=== PATIENT | male | born 1940 | race Caucasian/White ===

== ENCOUNTER 2022-07-20 14:42 | Outpatient (REF) | payer MEDICARE, SELFPAY ==
[2022-07-20 16:28] LABS: MANUAL DIFF FLAG NO
[2022-07-20 16:32] LABS: Basophils Absolute Auto 0.1 X10*3/uL (0.0-0.2); Basophils Percent Auto 1.2 % (0-2); Eosinophils Absolute Auto 0.2 X10*3/uL (0.0-0.4); Eosinophils Percent Auto 3.1 % (0-4); Hemoglobin 10.8 g/dl (14.0-18.0); Imm Gran Abs Auto 0.02 X10*3/uL (0.00-0.03); Imm Gran Pct Auto 0.3 % (0.0-0.4); Lymphocytes Absolute Auto 1.8 X10*3/uL (1.2-4.9); Lymphocytes Percent Auto 23.2 % (20-40); Mean Corpuscular HGB Conc 31.8 g/dl (31.0-36.0); Mean Corpuscular Hemoglobin 27.8 pg (27.0-33.0); Mean Corpuscular Volume 87.6 fL (80.0-98.0); Mean Platelet Volume 8.8 fL (9.4-12.4); Monocytes Absolute Auto 0.9 X10*3/uL (0.1-1.2); Monocytes Percent Auto 11.5 % (2-11); Neutrophils Absolute Auto 4.7 x10*3/uL (2.0-8.3); Neutrophils Percent Auto 60.7 % (45-73); Platelet Count 257 X10*3/uL (160-400); Red Blood Count 3.88 X10*6/uL (4.60-5.80); Red Cell Distribution Width 14.4 % (11.0-16.0); White Blood Count 7.7 X10*3/uL (4.8-10.8)
[2022-07-20 16:54] LABS: Alanine Aminotransferase < 6 U/L (0-40); Albumin Level 2.8 g/dL (3.5-5.0); Alkaline Phosphatase 115 U/L (39-117); Anion Gap 13 (12-20); Aspartate Amino Transferase 15 U/L (5-37); Bilirubin Total 0.5 mg/dL (0.0-1.0); Blood Urea Nitrogen 12 mg/dL (9-16); Calcium 8.6 mg/dL (8.4-10.2); Carbon Dioxide 27 mmol/L (22-29); Chloride 102 mmol/L (96-108); Estimated Glomerular Filt Rate > 60; Glucose Random 148 mg/dL (60-115); Potassium 4.2 mmol/L (3.3-5.1); Sodium 138 mmol/L (135-145); Total Protein 6.5 g/dL (6.5-8.0)
== END 2022-07-20 14:43 | disposition home or self-care (01) ==
LOC: HO.HMGCLDS 14:42
PROVIDERS: PCP Internal Medicine; Visit Provider Internal Medicine
DX: F41.1 Generalized anxiety disorder (principal); G62.9 Polyneuropathy, unspecified; I10 Essential (primary) hypertension; R26.89 Other abnormalities of gait and mobility; E13.9 Other specified diabetes mellitus without complications
CPT/HCPCS: 36415; 80053; 84443; 85025

== ENCOUNTER 2022-08-25 09:39 | Outpatient (REF) | payer MEDICARE, SELFPAY ==
[2022-08-25 11:43] LABS: MANUAL DIFF FLAG NO
[2022-08-25 11:48] LABS: Basophils Absolute Auto 0.1 X10*3/uL (0.0-0.2); Basophils Percent Auto 1.1 % (0-2); Eosinophils Absolute Auto 0.2 X10*3/uL (0.0-0.4); Eosinophils Percent Auto 2.7 % (0-4); Hematocrit 36.3 % (42.0-52.0); Hemoglobin 11.8 g/dl (14.0-18.0); Imm Gran Abs Auto 0.02 X10*3/uL (0.00-0.03); Imm Gran Pct Auto 0.2 % (0.0-0.4); Lymphocytes Absolute Auto 1.9 X10*3/uL (1.2-4.9); Lymphocytes Percent Auto 21.7 % (20-40); Mean Corpuscular HGB Conc 32.5 g/dl (31.0-36.0); Mean Corpuscular Volume 89.2 fL (80.0-98.0); Mean Platelet Volume 8.7 fL (9.4-12.4); Monocytes Absolute Auto 1.1 X10*3/uL (0.1-1.2); Neutrophils Absolute Auto 5.5 x10*3/uL (2.0-8.3); Neutrophils Percent Auto 62.3 % (45-73); Platelet Count 266 X10*3/uL (160-400); Red Blood Count 4.07 X10*6/uL (4.60-5.80); Red Cell Distribution Width 14.3 % (11.0-16.0); White Blood Count 8.9 X10*3/uL (4.8-10.8)
== END 2022-08-25 09:40 | disposition home or self-care (01) ==
LOC: HO.HMGCLDS 09:39
PROVIDERS: PCP Internal Medicine; Visit Provider Internal Medicine
DX: D64.9 Anemia, unspecified (principal)
CPT/HCPCS: 36415; 85025

== ENCOUNTER 2022-11-16 15:25 | Outpatient (REF) | payer MEDICARE, SELFPAY | END 2022-11-16 15:26 | disposition home or self-care (01) | LOC: HO.LNP 15:25 | PROVIDERS: Visit Provider Internal Medicine | DX: Z13.89 Encounter for screening for other disorder (principal) ==

== ENCOUNTER 2023-05-21 09:54 | Outpatient (AMB) | payer MEDICARE, SELFPAY ==
[2023-05-21 09:58] VITALS: BP 110/62; PULSE 59; O2SAT 99
--- NOTE | 2023-05-21 09:58 | MHC.PC.OV ---
Vital Signs 05/21/23 09:58 Height 6 ft BMI Reason not done Patient refused/unable BP 110/62 Blood Pressure Location Lt brachial Position Sitting Pulse 59 Pulse Source Pulse Oximeter Pulse Oximetry (%) 99 Oxygen Delivery Method Room Air Intake Visit Reasons: 4 month Follow up Accompanied by: Spouse Allergies No Known Allergies [No Known Allergies*] Allergy (Verified 05/21/23 09:58) Medication List - Last Reconciled 05/21/23 by Krystin Balbuena MD aspirin (Adult Low Dose Aspirin) 81 mg PO DAILY cholecalciferol (vitamin D3) 25 mcg PO DAILY escitalopram oxalate 20 mg PO DAILY metoprolol succinate ER 100 mg PO DAILY silver sulfadiazine 1% (Silvadene) 1 appl topical DAILY 30 days Tobacco use date assessed: 05/21/23 Fall risk assessment: No Falls in past year Last assessed Fall Risk: 05/21/23 Dental Screening Dental Screen Date: 05/21/23 Did you have a dental visit in the last 12 months?: No Did you have a dental problem in the last 6 months where you did not have access to dental care?: No Was dental information given to patient?: Patient declined HPI 4 month Follow up HPI Details Patient is 82-year-old male who is almost wheelchair bound And very rarely get up from wheelchair, only to go to bathroom. Patient is very unsteady on his feet because of chronic progressive neuropathy. Which has made it very difficult for patient to walk. Hypertension: Patient is on metoprolol 100 mg. Blood pressure is 110/62 His mood is stable anxiety is stable patient is on Lexapro 20 mg he is to continue that. His other medications are aspirin 81 mg and vitamin-D. Patient is here today with his sitting in wheelchair in no acute distress says that it is very difficult for family to take patient to pharmacy for high-dose flu vaccine So they would like to have the regular flu vaccine for patient today which we have given. He will be having labs done today. He wears diapers as well due to chronic urine incontinence He will return in 6 month for follow-up with his who is also a patient here. 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 Brother No problems noted. Brother No problems noted. Sister No problems noted. Son No problems noted. Son No problems noted. Son No problems noted. Son No problems noted. Daughter No problems noted. Daughter No problems noted. Daughter No problems noted. Social History Housing: House Patient Tobacco Use Status: Former Tobacco user e-Cigarette/Vaping Use: Never Used service: Yes Current occupational status: retired Cognitive needs: No Hearing needs: No Vision needs: No Questionnaire PHQ-9 Over the last 2 weeks, how often have you been bothered by any of the following problems? 1. Little interest or pleasure in doing things: nearly every day 2. Feeling down, depressed, or hopeless: not at all 3. Trouble falling or staying asleep, or sleeping too much: several days 4. Feeling tired or having little energy: not at all 5. Poor appetite or overeating: not at all 6. Feeling bad about yourself - or that you are a failure or have let yourself or your family down: not at all 7. Trouble concentrating on things, such as reading the newspaper or watching television: not at all 8. Moving or speaking so slowly that other people could have noticed. Or the opposite - being so fidgety or restless that you have been moving around a lot more than usual: not at all 9. Thoughts that you would be better off or of hurting yourself in some way: not at all Total score: 4 Depression Screening Interpretation: Negative Depression Screening Done: Yes 28596 - PHQ-9 Billing: Yes Source: Developed by Drs. Adan Black, Hannah Powell, Marcell Levine and colleagues, with an educational marta from [employer]. Thrive Questionnaire Date Thrive assessed: 05/21/23 I am a: Patient What is your living situation today?: I have a steady place to live Within the past 12 months, did the food you bought not last and you didn't have the money to get more?: Never true Within the past 12 months, did you worry whether your food would run out before you got money to buy more?: Never true Do you have trouble paying for medicines?: No Do you have trouble getting transportation to medical appointments?: No Do you have trouble paying your heating and electricity bill?: No Do you have trouble taking care of your child, family member or friend?: No Do you have trouble with day-to-day activities such as bathing, preparing meals, shopping, managing finances, etc.?: No Are you currently unemployed and looking for a job?: No Are you interested in more education?: No Please select the resources that you would like help with: None Currently or been in a relationship where the following occur: no concerns reported ELI-7 AMB Questionnaire ELI-7 Date ELI - 7 assessed: 05/21/23 Feeling nervous, anxious, or on edge: 0 = Not at all Not being able to stop or control worryin = Not at all Worrying too much about different things: 0 = Not at all Trouble relaxin = Not at all Being so restless that it is hard to sit still: 0 = Not at all Becoming easily annoyed or irritable: 0 = Not at all Feeling afraid as if something awful might happen: 0 = Not at all Total ELI-7 score (0-4 normal; 5-9 mild; 10-14 moderate; 15-21 severe): 0 Source: Developed by Drs. Adan lBack, Hannah Powell, Marcell Levine and colleagues, with an educational marta from [employer]. ELI-7 Assessment Billing ELI-7 Assessment Tool: ELI-7 Assessment 02378 Review of Systems Const Denies chills and Denies fever(s) ENT Denies epistaxis and Denies nasal discharge Card Denies chest pain Resp Denies chest congestion, Denies cough and Denies hemoptysis GI Denies diarrhea and Denies nausea Skin/Breast Denies rash Neuro Reports no additional complaints Psych Reports no additional complaints Endo Reports no additional complaints Physical exam (Primary Care) Vital Signs: Last Vital Signs Pulse 59 05/21/23 09:58 BP 110/62 05/21/23 09:58 Pulse Ox 99 05/21/23 09:58 Oxygen Delivery Method Room Air 05/21/23 09:58 Tobacco/Smoking Status: Tobacco use Status Tobacco use date assessed 05/21/23 05/21/23 09:59 Patient Tobacco Use Status Former Tobacco user 05/21/23 09:59 e-Cigarette/Vaping Use Never Used 05/21/23 09:59 PHQ-9: PHQ-9 Score PHQ-9: Total score 4 05/21/23 10:25 Depression Screening Interpretation: Negative Thrive Assessment: Date of Thrive Assessment Date Thrive assessed 05/21/23 05/21/23 10:05 Currently or been in a relationship where the following occur: no concerns reported Const General: cooperative, comfortable and no acute distress Orientation/consciousness: patient oriented x3 HENMT Head: Yes normocephalic Eyes General: appearance normal, both eyes and all related structures Neck Neck: Yes supple Resp Effort & Inspection: normal respiratory effort, no cough and no stridor Cardio Rhythm: regular rhythm Heart sounds: S1 normal heart sound present and S2 normal heart sound present Skin General skin exam: turgor normal Neuro General: patient oriented x3 and moves all extremities Extrem Right lower extremity: no edema Left lower extremity: no edema Office Procedures Flu Questionnaire Does the patient have a severe egg allergy?: No Does the patient have severe life threatening allergies?: No Does the patient have a fever or illness today?: No Has the patient ever had Guillain-Kingman Syndrome?: No Has the patient ever had any past reaction to a flu shot?: No Immunizations flu vacc [id number] 6mos up(PF) 60 mcg(15 mcgx4)/0.5 mL IM syringe Performing Provider: Krystin Balbuena MD Performing Location: [facility] [place] [facility] Administered by: Shree Elmore CMA on 05/21/23 10:25 Dose Route Admin Location Dispensed Lot Number Expiration Date NDC [employer] 0.5 mL IM Left Deltoid 0.5 mL [id number] 01/05/24 [id number] [employer] VIS Given Date VIS Provided VIS Publication Date 05/21/23 Single Vaccine 21 Eligibility Eligibility Date Funding Source Not [facility] Eligible 05/21/23 Private Assessment and Plan Assessment & Plan (1) Diabetes 1.5, managed as type 2: Code(s): E13.9 - Other specified diabetes mellitus without complications (2) Hypertension, essential: Code(s): I10 - Essential (primary) hypertension (3) Anxiety, generalized: Code(s): F41.1 - Generalized anxiety disorder (4) Multifactorial gait disorder: Code(s): R26.89 - Other abnormalities of gait and mobility (5) Peripheral neuropathy: Code(s): G62.9 - Polyneuropathy, unspecified Qualifiers: Peripheral neuropathy type: idiopathic progressive neuropathy Qualified Code(s): G60.3 - Idiopathic progressive neuropathy (6) Anemia: Code(s): D64.9 - Anemia, unspecified Qualifiers: Anemia type: unspecified type Qualified Code(s): D64.9 - Anemia, unspecified (7) Risk for falls: Code(s): Z91.81 - History of falling (8) Gait instability: Code(s): R26.81 - Unsteadiness on feet Plan Patient is 82-year-old male who is almost wheelchair bound And very rarely get up from wheelchair, only to go to bathroom. Patient is very unsteady on his feet because of chronic progressive neuropathy. Which has made it very difficult for patient to walk. Hypertension: Patient is on metoprolol 100 mg. Blood pressure is 110/62 His mood is stable anxiety is stable patient is on Lexapro 20 mg he is to continue that. His other medications are aspirin 81 mg and vitamin-D. Patient is here today with his sitting in wheelchair in no acute distress says that it is very difficult for family to take patient to pharmacy for high-dose flu vaccine So they would like to have the regular flu vaccine for patient today which we have given. He will be having labs done today. Diabetes mellitus: Diet controlled He wears diapers as well due to chronic urine incontinence He will return in 6 month for follow-up with his who is also a patient here. Orders: Orders Complete Blood Count Auto Diff Today D64.9 - Anemia, unspecified, E13.9 - Other specified diabetes mellitus without complications, F41.1 - Generalized anxiety disorder, G62.9 - Polyneuropathy, unspecified, I10 - Essential (primary) hypertension, R26.89 - Other abnormalities of gait and mobility Ferritin Today D64.9 - Anemia, unspecified, E13.9 - Other specified diabetes mellitus without complications, F41.1 - Generalized anxiety disorder, G62.9 - Polyneuropathy, unspecified, I10 - Essential (primary) hypertension, R26.89 - Other abnormalities of gait and mobility Hemoglobin A1c Today E13.9 - Other specified diabetes mellitus without complications Comprehensive Anderson. Panel Fast Today D64.9 - Anemia, unspecified, E13.9 - Other specified diabetes mellitus without complications, F41.1 - Generalized anxiety disorder, G62.9 - Polyneuropathy, unspecified, I10 - Essential (primary) hypertension, R26.89 - Other abnormalities of gait and mobility Influenza [id number] Immunization Today Z23 - Encounter for immunization TSH reflex Free T4 Today D64.9 - Anemia, unspecified, E13.9 - Other specified diabetes mellitus without complications, F41.1 - Generalized anxiety disorder, G62.9 - Polyneuropathy, unspecified, I10 - Essential (primary) hypertension, R26.89 - Other abnormalities of gait and mobility Lipid Panel Today D64.9 - Anemia, unspecified, E13.9 - Other specified diabetes mellitus without complications, F41.1 - Generalized anxiety disorder, G62.9 - Polyneuropathy, unspecified, I10 - Essential (primary) hypertension, R26.89 - Other abnormalities of gait and mobility Medications: Refilled metoprolol succinate ER 100 mg PO DAILY 90 tabs 3RF escitalopram oxalate 20 mg PO DAILY 90 tabs 3RF Coding Level of Care Code Est Pt Level 4 (21803) Diagnoses Diabetes 1.5, managed as type 2 E13.9 Hypertension, essential I10 Anxiety, generalized F41.1 Multifactorial gait disorder R26.89 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 type: idiopathic progressive neuropathy Anemia, unspecified type D64.9 Anemia type: unspecified type Risk for falls Z91.81 Gait instability R26.81 Additional Codes ELI-7 Assessment Billing - ELI-7 Assessment Tool: ELI-7 Assessment [id number] ([id number])
== END 2023-05-21 10:28 | disposition home or self-care (01) ==
PROVIDERS: Visit Provider Internal Medicine
DX: E13.9 Other specified diabetes mellitus without complications (principal); I10 Essential (primary) hypertension; F41.1 Generalized anxiety disorder; R26.89 Other abnormalities of gait and mobility; G60.3 Idiopathic progressive neuropathy; D64.9 Anemia, unspecified; Z91.81 History of falling; R26.81 Unsteadiness on feet; Z23 Encounter for immunization
CPT/HCPCS: 90471; 90686; 99214

== ENCOUNTER 2023-05-21 10:32 | Outpatient (REF) | payer MEDICARE, SELFPAY ==
[2023-05-21 13:37] LABS: MANUAL DIFF FLAG NO
[2023-05-21 14:01] LABS: Estimated Average Glucose 94 mg/dL; Hemoglobin A1c % 4.9 % (<6.0)
[2023-05-21 14:08] LABS: Alanine Aminotransferase < 5 U/L (0-40); Albumin Level 2.9 g/dL (3.5-5.0); Alkaline Phosphatase 102 U/L (39-117); Anion Gap 11 (12-20); Aspartate Amino Transferase 22 U/L (5-37); Bilirubin Total 0.6 mg/dL (0.0-1.0); Blood Urea Nitrogen 10 mg/dL (9-16); Calcium 8.8 mg/dL (8.4-10.2); Carbon Dioxide 28 mmol/L (22-29); Chloride 101 mmol/L (96-108); Cholesterol 128 mg/dL (<200); Estimated Glomerular Filt Rate > 60; Glucose Fasting 100 mg/dL (60-99); HDL Cholesterol 44 mg/dL (>40); LDL Cholesterol Calculated 73 mg/dL (<100); Potassium 4.5 mmol/L (3.3-5.1); Sodium 135 mmol/L (135-145); Total Protein 7.2 g/dL (6.5-8.0); Triglycerides 59 mg/dL (<150)
[2023-05-21 14:10] LABS: Basophils Absolute Auto 0.1 X10*3/uL (0.0-0.2); Basophils Percent Auto 1.2 % (0-2); Eosinophils Absolute Auto 0.2 X10*3/uL (0.0-0.4); Eosinophils Percent Auto 1.9 % (0-4); Hematocrit 36.5 % (42.0-52.0); Hemoglobin 12.3 g/dl (14.0-18.0); Imm Gran Abs Auto 0.03 X10*3/uL (0.00-0.03); Imm Gran Pct Auto 0.4 % (0.0-0.4); Lymphocytes Absolute Auto 1.3 X10*3/uL (1.2-4.9); Lymphocytes Percent Auto 15.4 % (20-40); Mean Corpuscular HGB Conc 33.7 g/dl (31.0-36.0); Mean Corpuscular Hemoglobin 30.1 pg (27.0-33.0); Mean Corpuscular Volume 89.2 fL (80.0-98.0); Mean Platelet Volume 8.8 fL (9.4-12.4); Monocytes Absolute Auto 0.9 X10*3/uL (0.1-1.2); Monocytes Percent Auto 9.9 % (2-11); Neutrophils Absolute Auto 6.1 x10*3/uL (2.0-8.3); Neutrophils Percent Auto 71.2 % (45-73); Platelet Count 238 X10*3/uL (160-400); Red Blood Count 4.09 X10*6/uL (4.60-5.80); Red Cell Distribution Width 14.3 % (11.0-16.0); White Blood Count 8.6 X10*3/uL (4.8-10.8)
[2023-05-21 14:26] LABS: Ferritin 10 ng/mL (20-250); TSH reflex Free T4 1.12 uIU/mL (0.32-4.0)
== END 2023-05-21 10:33 | disposition home or self-care (01) ==
LOC: HO.HMGCLDS 10:32
PROVIDERS: PCP Internal Medicine; Visit Provider Internal Medicine
DX: I10 Essential (primary) hypertension (principal); F41.1 Generalized anxiety disorder; R26.89 Other abnormalities of gait and mobility; E13.9 Other specified diabetes mellitus without complications; G62.9 Polyneuropathy, unspecified; D64.9 Anemia, unspecified
CPT/HCPCS: 36415; 80053; 80061; 82728; 83036; 84443; 85025

== ENCOUNTER 2023-11-19 09:52 | Outpatient (AMB) | payer MEDICARE, SELFPAY ==
[2023-11-19 10:03] VITALS: BP 106/58; PULSE 59; O2SAT 97
--- NOTE | 2023-11-19 10:03 | MHC.PC.OV ---
Vital Signs 11/19/23 10:03 Height 6 ft BMI Reason not done Patient refused/unable BP 106/58 L Blood Pressure Location Lt brachial Position Sitting Pulse 59 Pulse Source Pulse Oximeter Pulse Oximetry (%) 97 Oxygen Delivery Method Room Air Intake Visit Reasons: 6 month fu Allergies No Known Allergies [No Known Allergies*] Allergy (Verified 11/19/23 10:04) Medication List - Last Reconciled 11/19/23 by Krystin Balbuena MD aspirin (Adult Low Dose Aspirin) 81 mg PO DAILY cholecalciferol (vitamin D3) 25 mcg PO DAILY escitalopram oxalate 20 mg PO DAILY metoprolol succinate ER 100 mg PO DAILY Tobacco use date assessed: 11/19/23 Fall risk assessment: No Falls in past year Last assessed Fall Risk: 11/19/23 Dental Screening Dental Screen Date: 11/19/23 Did you have a dental visit in the last 12 months?: No Did you have a dental problem in the last 6 months where you did not have access to dental care?: No Was dental information given to patient?: No HPI 6 month fu HPI Details Patient is 83-year-old male who is almost wheelchair bound But still able to use commode holding onto something, patient do wear diapers as well Patient is very unsteady on his feet because of chronic progressive neuropathy. Hypertension: Patient is on metoprolol 50 mg. Blood pressure is 106 systolic, I am reducing it further to 25 mg His mood is stable anxiety is stable patient is on Lexapro 20 mg he is to continue that. His other medications are aspirin 81 mg and vitamin-D. Patient is here today with his sitting in wheelchair in no acute distress He will be having labs done today. 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 Brother No problems noted. Brother No problems noted. Sister No problems noted. Son No problems noted. Son No problems noted. Son No problems noted. Son No problems noted. Daughter No problems noted. Daughter No problems noted. Daughter No problems noted. Social History Housing: House Patient Tobacco Use Status: Former Tobacco user e-Cigarette/Vaping Use: Never Used service: Yes Current occupational status: retired Cognitive needs: No Hearing needs: No Vision needs: No Questionnaire PHQ-9 Over the last 2 weeks, how often have you been bothered by any of the following problems? 1. Little interest or pleasure in doing things: more than half the days 2. Feeling down, depressed, or hopeless: several days 3. Trouble falling or staying asleep, or sleeping too much: nearly every day 4. Feeling tired or having little energy: nearly every day 5. Poor appetite or overeating: not at all 6. Feeling bad about yourself - or that you are a failure or have let yourself or your family down: not at all 7. Trouble concentrating on things, such as reading the newspaper or watching television: not at all 8. Moving or speaking so slowly that other people could have noticed. Or the opposite - being so fidgety or restless that you have been moving around a lot more than usual: not at all 9. Thoughts that you would be better off or of hurting yourself in some way: not at all Total score: 9 Depression Screening Interpretation: Positive Depression Screening Follow-up: Existing condition and In treatment Depression Screening Done: Yes 75440 - PHQ-9 Billing: Yes Source: Developed by Drs. Adan Black, Hannah Powell, Marcell Levine and colleagues, with an educational marta from [employer]. Thrive Questionnaire Date Thrive assessed: 11/19/23 I am a: Patient What is your living situation today?: I have a steady place to live Within the past 12 months, did the food you bought not last and you didn't have the money to get more?: Never true Within the past 12 months, did you worry whether your food would run out before you got money to buy more?: Never true Do you have trouble paying for medicines?: No Do you have trouble getting transportation to medical appointments?: No Do you have trouble paying your heating and electricity bill?: No Do you have trouble taking care of your child, family member or friend?: No Do you have trouble with day-to-day activities such as bathing, preparing meals, shopping, managing finances, etc.?: No Are you currently unemployed and looking for a job?: No Are you interested in more education?: No Please select the resources that you would like help with: None Currently or been in a relationship where the following occur: no concerns reported THRIVE Score: 0 AUDIT C Alcohol Use Questionnaire (AUDIT-C) 1. How often do you have a drink containing alcohol?: Never 2. How many drinks containing alcohol do you have on a typical day when you are drinking?: 1 or 2 3. How often do you have six or more drinks on one occasion?: Never Total Score: 0 ELI-7 AMB Questionnaire ELI-7 Date ELI - 7 assessed: 11/19/23 Feeling nervous, anxious, or on edge: 3 = Nearly every day Not being able to stop or control worryin = More than half the days Worrying too much about different things: 1 = Several days Trouble relaxin = Several days Being so restless that it is hard to sit still: 0 = Not at all Becoming easily annoyed or irritable: 0 = Not at all Feeling afraid as if something awful might happen: 0 = Not at all Total ELI-7 score (0-4 normal; 5-9 mild; 10-14 moderate; 15-21 severe): 7 Source: Developed by Drs. Adan Black, Hannah Powell, Marcell Levine and colleagues, with an educational marta from [employer]. ELI-7 Assessment Billing ELI-7 Assessment Tool: ELI-7 Assessment 05892 Review of Systems Const Denies chills and Denies fever(s) ENT Denies epistaxis and Denies nasal discharge Card Denies chest pain Resp Denies chest congestion, Denies cough and Denies hemoptysis GI Denies diarrhea and Denies nausea Skin/Breast Denies rash Neuro Reports no additional complaints Psych Reports no additional complaints Endo Reports no additional complaints Physical exam (Primary Care) Vital Signs: Last Vital Signs Pulse 59 11/19/23 10:03 BP 106/58 L 11/19/23 10:03 Pulse Ox 97 11/19/23 10:03 Oxygen Delivery Method Room Air 11/19/23 10:03 Tobacco/Smoking Status: Tobacco use Status Tobacco use date assessed 11/19/23 11/19/23 10:08 Patient Tobacco Use Status Former Tobacco user 11/19/23 10:08 e-Cigarette/Vaping Use Never Used 11/19/23 10:08 PHQ-9: PHQ-9 Score PHQ-9: Total score 9 11/19/23 10:36 Depression Screening Interpretation: Positive Depression Screening Follow-up: Existing condition and In treatment Thrive Assessment: Date of Thrive Assessment Date Thrive assessed 11/19/23 11/19/23 10:08 Currently or been in a relationship where the following occur: no concerns reported Const General: cooperative, comfortable and no acute distress Orientation/consciousness: patient oriented x3 HENMT Head: Yes normocephalic Eyes General: appearance normal, both eyes and all related structures Neck Neck: Yes supple Resp Effort & Inspection: normal respiratory effort, no cough and no stridor Cardio Heart sounds: S1 normal heart sound present and S2 normal heart sound present Skin General skin exam: turgor normal Neuro General: patient oriented x3, tone normal and moves all extremities Extrem Other: No edema bilateral ankle Results AMB Hemoglobin A1c AMB Hemoglobin A1c 5.5 % Last Edit by Aguilar Doll MA on 11/19/23 10:22 Results Reviewed Results Reviewed: Laboratory Last Values Hgb A1c (Clinic) 5.5 % (4.0-6.0) 11/19/23 10:21 Assessment and Plan Assessment & Plan (1) Diabetes 1.5, managed as type 2: Code(s): E13.9 - Other specified diabetes mellitus without complications (2) Multifactorial gait disorder: Code(s): R26.89 - Other abnormalities of gait and mobility (3) Anxiety, generalized: Code(s): F41.1 - Generalized anxiety disorder (4) Hypertension, essential: Code(s): I10 - Essential (primary) hypertension (5) Peripheral neuropathy: Code(s): G62.9 - Polyneuropathy, unspecified Qualifiers: Peripheral neuropathy type: idiopathic progressive neuropathy Qualified Code(s): G60.3 - Idiopathic progressive neuropathy (6) Risk for falls: Code(s): Z91.81 - History of falling Plan Patient is 83-year-old male who is almost wheelchair bound But still able to use commode holding onto something, patient do wear diapers as well Patient is very unsteady on his feet because of chronic progressive neuropathy. Hypertension: Patient is on metoprolol 50 mg. Blood pressure is 106 systolic, I am reducing it further to 25 mg His mood is stable anxiety is stable patient is on Lexapro 20 mg he is to continue that. His other medications are aspirin 81 mg and vitamin-D. Patient is here today with his sitting in wheelchair in no acute distress He will be having labs done today. Diabetes mellitus: Diet controlled, hemoglobin A1c is 5.5 today As chronic urine incontinence He will return in 6 month for follow-up with his Orders: Orders Complete Blood Count Auto Diff Today E13.9 - Other specified diabetes mellitus without complications, E66.09 - Other obesity due to excess calories, F41.1 - Generalized anxiety disorder, I10 - Essential (primary) hypertension, R26.89 - Other abnormalities of gait and mobility Comprehensive Met. Panel Today E13.9 - Other specified diabetes mellitus without complications, E66.09 - Other obesity due to excess calories, F41.1 - Generalized anxiety disorder, I10 - Essential (primary) hypertension, R26.89 - Other abnormalities of gait and mobility Medications: Changed From metoprolol succinate ER 100 mg PO DAILY 90 tabs 3RF To metoprolol succinate ER 25 mg PO DAILY 90 tabs 3RF Refilled cholecalciferol (vitamin D3) 25 mcg PO DAILY 90 caps 0RF Coding Level of Care Code Est Pt Level 4 (54920) Diagnoses Diabetes 1.5, 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 R26.89 Anxiety, generalized F41.1 Hypertension, essential I10 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 type: idiopathic progressive neuropathy Risk for falls Z91.81 Additional Codes ELI-7 Assessment Billing - ELI-7 Assessment Tool: ELI-7 Assessment 34526 ([id number])
== END 2023-11-19 11:26 | disposition home or self-care (01) ==
PROVIDERS: PCP Internal Medicine; Visit Provider Internal Medicine
DX: E13.9 Other specified diabetes mellitus without complications (principal); R26.89 Other abnormalities of gait and mobility; F41.1 Generalized anxiety disorder; I10 Essential (primary) hypertension; G60.3 Idiopathic progressive neuropathy; Z91.81 History of falling
CPT/HCPCS: 83036; 99214

== ENCOUNTER 2023-11-19 10:29 | Outpatient (REF) | payer MEDICARE, SELFPAY ==
[2023-11-19 13:16] LABS: MANUAL DIFF FLAG NO
[2023-11-19 13:24] LABS: Basophils Absolute Auto 0.1 X10*3/uL (0.0-0.2); Basophils Percent Auto 1.2 % (0-2); Eosinophils Absolute Auto 0.1 X10*3/uL (0.0-0.4); Eosinophils Percent Auto 2.3 % (0-4); Hematocrit 26.7 % (42.0-52.0); Hemoglobin 8.7 g/dl (14.0-18.0); Imm Gran Abs Auto 0.03 X10*3/uL (0.00-0.03); Imm Gran Pct Auto 0.5 % (0.0-0.4); Mean Corpuscular HGB Conc 32.6 g/dl (31.0-36.0); Mean Corpuscular Hemoglobin 29.1 pg (27.0-33.0); Mean Corpuscular Volume 89.3 fL (80.0-98.0); Mean Platelet Volume 8.9 fL (9.4-12.4); Monocytes Absolute Auto 0.7 X10*3/uL (0.1-1.2); Monocytes Percent Auto 12.9 % (2-11); Neutrophils Absolute Auto 3.7 x10*3/uL (2.0-8.3); Neutrophils Percent Auto 66.1 % (45-73); Platelet Count 154 X10*3/uL (160-400); Red Blood Count 2.99 X10*6/uL (4.60-5.80); Red Cell Distribution Width 14.4 % (11.0-16.0); White Blood Count 5.6 X10*3/uL (4.8-10.8)
[2023-11-19 13:51] LABS: Alanine Aminotransferase 6 U/L (0-40); Albumin Level 2.7 g/dL (3.5-5.0); Alkaline Phosphatase 111 U/L (39-117); Anion Gap 12 (12-20); Aspartate Amino Transferase 17 U/L (5-37); Bilirubin Total 0.4 mg/dL (0.0-1.0); Blood Urea Nitrogen 10 mg/dL (9-16); Calcium 8.7 mg/dL (8.4-10.2); Carbon Dioxide 28 mmol/L (22-29); Chloride 103 mmol/L (96-108); Estimated Glomerular Filt Rate > 60; Glucose Random 127 mg/dL (60-115); Potassium 4.4 mmol/L (3.3-5.1); Sodium 139 mmol/L (135-145); Total Protein 6.4 g/dL (6.5-8.0)
== END 2023-11-19 10:30 | disposition home or self-care (01) ==
LOC: HO.HMGCLDS 10:29
PROVIDERS: PCP Internal Medicine; Visit Provider Internal Medicine
DX: E13.9 Other specified diabetes mellitus without complications (principal); E66.09 Other obesity due to excess calories; R26.89 Other abnormalities of gait and mobility; F41.1 Generalized anxiety disorder; I10 Essential (primary) hypertension
CPT/HCPCS: 36415; 80053; 85025

== ENCOUNTER → 2023-11-29 12:47 | Outpatient (BNV) | payer MEDICARE, SELFPAY | PROVIDERS: PCP Internal Medicine; Referring Provider Internal Medicine; Visit Provider Internal Medicine Medical Oncology | DX: D64.9 Anemia, unspecified (principal) | CPT/HCPCS: 99204; 99213; 99443 ==

== ENCOUNTER 2023-12-19 12:29 | Outpatient (REF) | payer MEDICARE, SELFPAY ==
[2023-12-19 13:00] LABS: MANUAL DIFF FLAG NO
[2023-12-19 14:01] LABS: Basophils Absolute Auto 0.1 X10*3/uL (0.0-0.2); Basophils Percent Auto 0.6 % (0-2); Eosinophils Absolute Auto 0.2 X10*3/uL (0.0-0.4); Eosinophils Percent Auto 1.9 % (0-4); Hematocrit 30.2 % (42.0-52.0); Hemoglobin 9.6 g/dl (14.0-18.0); Imm Gran Abs Auto 0.03 X10*3/uL (0.00-0.03); Imm Gran Pct Auto 0.4 % (0.0-0.4); Lymphocytes Absolute Auto 1.2 X10*3/uL (1.2-4.9); Lymphocytes Percent Auto 13.8 % (20-40); Mean Corpuscular HGB Conc 31.8 g/dl (31.0-36.0); Mean Corpuscular Hemoglobin 29.5 pg (27.0-33.0); Mean Corpuscular Volume 92.9 fL (80.0-98.0); Mean Platelet Volume 8.8 fL (9.4-12.4); Monocytes Absolute Auto 0.9 X10*3/uL (0.1-1.2); Monocytes Percent Auto 10.6 % (2-11); Neutrophils Absolute Auto 6.2 x10*3/uL (2.0-8.3); Neutrophils Percent Auto 72.7 % (45-73); Platelet Count 223 X10*3/uL (160-400); Red Blood Count 3.25 X10*6/uL (4.60-5.80); Red Cell Distribution Width 17.6 % (11.0-16.0); White Blood Count 8.5 X10*3/uL (4.8-10.8)
[2023-12-20 20:38] LABS: Immunoglobulin A 747 mg/dL (70-320); Transglutaminase IgA <1.0 U/mL
[2023-12-24 21:34] LABS: Intrinsic Factor Antibodies Negative (Negative)
[2023-12-26 13:34] LABS: Parietal Cell Antibody 53.9 Unit (<=20.0)
== END 2023-12-19 12:30 | disposition home or self-care (01) ==
LOC: HO.LAB 12:29
PROVIDERS: PCP Internal Medicine; Visit Provider Internal Medicine
DX: D50.9 Iron deficiency anemia, unspecified (principal); D51.8 Other vitamin B12 deficiency anemias
CPT/HCPCS: 36415; 82784; 83516; 85025; 86340; 86364

== ENCOUNTER 2024-01-23 13:02 | Outpatient (REF) | payer MEDICARE, SELFPAY ==
[2024-01-23 13:37] LABS: MANUAL DIFF FLAG NO
[2024-01-23 13:44] LABS: Basophils Absolute Auto 0.1 X10*3/uL (0.0-0.2); Basophils Percent Auto 0.9 % (0-2); Eosinophils Absolute Auto 0.2 X10*3/uL (0.0-0.4); Eosinophils Percent Auto 2.4 % (0-4); Hematocrit 37.1 % (42.0-52.0); Hemoglobin 12.3 g/dl (14.0-18.0); Imm Gran Abs Auto 0.02 X10*3/uL (0.00-0.03); Imm Gran Pct Auto 0.3 % (0.0-0.4); Lymphocytes Absolute Auto 1.1 X10*3/uL (1.2-4.9); Lymphocytes Percent Auto 14.3 % (20-40); Mean Corpuscular HGB Conc 33.2 g/dl (31.0-36.0); Mean Corpuscular Hemoglobin 31.2 pg (27.0-33.0); Mean Corpuscular Volume 94.2 fL (80.0-98.0); Mean Platelet Volume 8.3 fL (9.4-12.4); Monocytes Absolute Auto 0.9 X10*3/uL (0.1-1.2); Monocytes Percent Auto 10.8 % (2-11); Neutrophils Absolute Auto 5.7 x10*3/uL (2.0-8.3); Neutrophils Percent Auto 71.3 % (45-73); Platelet Count 232 X10*3/uL (160-400); Red Blood Count 3.94 X10*6/uL (4.60-5.80); Red Cell Distribution Width 14.8 % (11.0-16.0)
[2024-01-23 13:59] LABS: Iron 103 mcg/dL (45-160); Percent Iron Saturation 42 % (15-50); Total Iron Binding Capacity 247 mcg/dL (228-428); Unsaturated Iron Binding 144 ug/dL
[2024-01-23 14:35] LABS: Folate 14.2 ng/mL (> or = 4.0); Vitamin B12 878 pg/mL (200-900)
[2024-01-24 23:02] LABS: Immunoglobulin A 793 mg/dL (70-320)
[2024-01-28 22:08] LABS: Gliadin Deamidated IgG Ab <1.0 U/mL
[2024-01-29 22:57] LABS: Transglutaminase Ab IgG 12.8 U/mL; Transglutaminase IgA <1.0 U/mL
[2024-01-30 12:02] LABS: Endomysial IgA Antibody Negative (Negative)
== END 2024-01-23 13:03 | disposition home or self-care (01) ==
LOC: HO.LAB 13:02
PROVIDERS: PCP Internal Medicine; Visit Provider Internal Medicine
DX: D64.9 Anemia, unspecified (principal)
CPT/HCPCS: 36415; 82607; 82746; 82784; 83540; 85025; 86231; 86258; 86364

== ENCOUNTER → 2024-01-23 13:10 | Outpatient (BNV) | payer MEDICARE, SELFPAY | PROVIDERS: PCP Internal Medicine; Visit Provider Internal Medicine Cardiovascular Disease | DX: R00.1 Bradycardia, unspecified (principal); R94.31 Abnormal electrocardiogram [ECG] [EKG] | CPT/HCPCS: 93010 ==

== ENCOUNTER 2024-01-30 11:44 | Day surgery (SDC) | payer MEDICARE, SELFPAY ==
--- NOTE | 2024-01-23 | ECG_ITS ---
Test Reason : pre op pt sitting in W/C Blood Pressure : / mmHG Vent. Rate : 058 BPM Atrial Rate : 058 BPM P-R Int : 140 ms QRS Dur : 094 ms QT Int : 458 ms P-R-T Axes : 023 -08 039 degrees QTc Int : 449 ms Sinus bradycardia with sinus arrhythmia Nonspecific T wave abnormality Abnormal ECG When compared with ECG of 03-JUL-2019 15:12, No significant change was found Referred By: Jade De Leon Electronically Signed By:JASVIR DE LA GARZA MD
[2024-01-23 12:19] VITALS: BP 132/60; PULSE 60; RESP 18; O2SAT 97; BMI 36.3
--- NOTE | 2024-01-23 12:30 | HO.ANESPROP2 ---
Documented by User: Jade De Leon NP 01/27/24 12:21 HPI - Anesthesia Eval Consult details Narrative: 83yo M for Upper Endoscopy No recent illness No CP/SOB with very limited activity Peripheral neuropathy: signif affects gait DM: No rx, doesn't check POC COPD: No inhaler. 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 Brother No problems noted. Brother No problems noted. Sister No problems noted. Son No problems noted. Son No problems noted. Son No problems noted. Son No problems noted. Daughter No problems noted. Daughter No problems noted. Daughter No problems noted. Family history of problems with anesthesia: Unobtainable Surgical History Surgical History (Updated 01/23/24 @ 12:12 by Lisette Person RN) History of knee surgery History of colonoscopy History of Problems with Anesthesia: No Social History Social History Housing: House Are you a primary continuum of care manager to a significant other at home: No Do you presently have visiting nurse or other home services: No Patient Tobacco Use Status: Former Tobacco user Tobacco use type: Cigarette Years Smoked: 15 e-Cigarette/Vaping Use: Never Used Use of substances other than those prescribed or required for medical reasons: No Have you been hit, kicked, punched, or otherwise hurt by someone within the past year? If so, by whom?: No Are you DNR?: No Advance Directives Information Provided: Yes (advised to bring copy DOS) Advance Directives on File: No Recently lost weight without trying: No Eating poorly because of decreased appetite: No Nutrition Risks: Surgical patient >75years Poor oral hygiene: Yes (missing teeth upper & lower) service: Yes Current occupational status: retired Cognitive needs: No Hearing needs: No Vision needs: No Meds Allergies Allergy/AdvReac Type Severity Reaction Status Date / Time No Known Allergies Allergy Verified 01/30/24 12:12 [No Known Allergies*] Home Medications ?Medication ?Instructions ?Recorded ?Confirmed ?Last Taken ?Type aspirin 81 mg tablet,delayed 81 mg PO QAM 05/19/20 01/23/24 01/20/24 History release (Adult Low Dose Aspirin) cholecalciferol (vitamin D3) 25 25 mcg PO QAM 01/23/24 01/23/24 Unknown History mcg (1,000 unit) capsule escitalopram oxalate 20 mg tablet 20 mg PO QAM 01/23/24 01/23/24 Unknown History folic acid 1 mg tablet 1 mg PO QAM 01/23/24 01/23/24 Unknown History losartan 25 mg tablet 25 mg PO QAM 01/23/24 01/23/24 Unknown History metoprolol succinate 25 mg 25 mg PO QAM 01/23/24 01/23/24 01/30/24 History tablet,extended release 24 hr Exam Height,Weight and Vital Signs: Height 6 ft 1 in Weight 124.738 kg Last Vital Signs Pulse 60 01/23/24 12:19 Resp 18 01/23/24 12:19 BP 132/60 01/23/24 12:19 Pulse Ox 97 01/23/24 12:19 O2 Del Method Room Air 01/23/24 12:19 Pertinent Lab Results Pertinent Lab Results: Laboratory Tests 12/16/23 12/19/23 09:06 12:58 WBC 8.5 Hgb 9.6 L Hct 30.2 L Plt Count 223 Sodium 141 Potassium 4.0 Chloride 104 Carbon Dioxide 26 BUN 9 Creatinine 0.82 Narrative Narrative: EKG 01/2024 Vent. Rate : 058 BPM Atrial Rate : 058 BPM P-R Int : 140 ms QRS Dur : 094 ms QT Int : 458 ms P-R-T Axes : 023 -08 039 degrees QTc Int : 449 ms Sinus bradycardia with sinus arrhythmia Nonspecific T wave abnormality Abnormal ECG When compared with ECG of 03-JUL-2019 15:12, No significant change was found Airway Mallampati Class: III TM Dist: >3cm Neck ROM: Limited Loose/Missing/Broken Teeth: No (Intact by inspection, but patient and unsure of status) Heart: RRR ? 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 Brother No problems noted. Brother No problems noted. Sister No problems noted. Son No problems noted. Son No problems noted. Son No problems noted. Son No problems noted. Daughter No problems noted. Daughter No problems noted. Daughter No problems noted. Family history of problems with anesthesia: No Surgical History Surgical History (Updated 01/23/24 @ 12:12 by Lisette Person RN) History of knee surgery History of colonoscopy Social History Social History Housing: House Are you a primary continuum of care manager to a significant other at home: No Do you presently have visiting nurse or other home services: No Patient Tobacco Use Status: Former Tobacco user Tobacco use type: Cigarette Years Smoked: 15 e-Cigarette/Vaping Use: Never Used Use of substances other than those prescribed or required for medical reasons: No Have you been hit, kicked, punched, or otherwise hurt by someone within the past year? If so, by whom?: No Are you DNR?: No Advance Directives Information Provided: Yes (advised to bring copy DOS) Advance Directives on File: No Recently lost weight without trying: No Eating poorly because of decreased appetite: No Nutrition Risks: Surgical patient >75years Poor oral hygiene: Yes (missing teeth upper & lower) service: Yes Current occupational status: retired Cognitive needs: No Hearing needs: No Vision needs: No Meds Allergies Allergy/AdvReac Type Severity Reaction Status Date / Time No Known Allergies Allergy Verified 01/30/24 12:12 [No Known Allergies*] Home Medications ?Medication ?Instructions ?Recorded ?Confirmed ?Last Taken ?Type aspirin 81 mg tablet,delayed 81 mg PO QAM 05/19/20 01/23/24 01/20/24 History release (Adult Low Dose Aspirin) cholecalciferol (vitamin D3) 25 25 mcg PO QAM 01/23/24 01/23/24 Unknown History mcg (1,000 unit) capsule escitalopram oxalate 20 mg tablet 20 mg PO QAM 01/23/24 01/23/24 Unknown History folic acid 1 mg tablet 1 mg PO QAM 01/23/24 01/23/24 Unknown History losartan 25 mg tablet 25 mg PO QAM 01/23/24 01/23/24 Unknown History metoprolol succinate 25 mg 25 mg PO QAM 01/23/24 01/23/24 01/30/24 History tablet,extended release 24 hr Assessment and Plan Final Anesthetic Review Family History of Problems with Anesthesia: No NPO: Yes ASA Class: III Final Preanesthetic Review: No Changes in Pt Med Stat, Meds/Allgs Chart Reviewed, Consent Obtained/Reviewed and Anes Risks/Benef Reviewed Patient Risk: Intermediate Procedure Risk: Low Anesthetic Plan Anesthetic Plan: TIVA Disposition: Standard PACU
[2024-01-30 12:25] VITALS: BP 141/53; PULSE 57; RESP 18; TEMP 36.3; O2SAT 97; BMI 38.4
[2024-01-30 12:26] LABS: Glucose, Whole Blood 80 mg/dL (60-115)
[2024-01-30] MEDS: Lactated Ringers 1,000 ML 100 ML IVCONT (12:38)
--- NOTE | 2024-01-30 13:05 | PC.NURSE ---
Dr. Martínez at bedside 24hr update documented on paper
[2024-01-30 13:38] VITALS: BP 125/54; PULSE 57; RESP 16; TEMP 36.9; O2SAT 98
--- NOTE | 2024-01-30 13:40 | P.BOP_ITS ---
Brief Operative Note Date of Service: 01/30/24 Pre-op diagnosis: Anemia Post-op diagnosis: other (Chronic gastritis, R/O Celiac disease) Procedure: EGD with biopsies Surgeon: Adan aMrtínez MD Anesthesia: MAC Was an Manager Of Creative Services used for this Procedure?: No Estimated blood loss (mL): 2.0 Pathology: other (A. Descending duodenum B. Gastric antrum) Condition: stable Disposition: PACU
[2024-01-30 13:53] VITALS: BP 138/62; PULSE 55; RESP 16; O2SAT 98
[2024-01-30 14:07] VITALS: BP 144/67; PULSE 56; RESP 16; TEMP 36.9; O2SAT 99
--- NOTE | 2024-01-30 14:11 | OP_ITS ---
DATE OF SERVICE: 01/30/2024 SURGEON: Adan Martínez MD INDICATIONS: The patient presents for evaluation of iron-deficiency anemia. Full consent has been obtained from him for this, including risks of bleeding and perforation. PREOPERATIVE DIAGNOSIS: Iron deficiency anemia. POSTOPERATIVE DIAGNOSIS: PROCEDURE PERFORMED: Esophagogastroduodenoscopy with biopsies. ESTIMATED BLOOD LOSS: COMPLICATIONS: ANESTHESIA: Monitored anesthesia care. ASSISTANTS: SPECIMENS: POSTOPERATIVE DIAGNOSES: Iron deficiency anemia, chronic changes of gastritis, mild duodenitis. DESCRIPTION OF PROCEDURE: The patient was placed in the left lateral decubitus position. The Olympus video gastroscope was passed in the posterior oropharynx and upper esophagus under direct vision. The scope was passed slowly into the distal esophagus. The gastroesophageal junction appeared normal at 39 cm. There was no sign of any esophagitis nor Disla esophagus. The scope entered the stomach and was advanced to the pylorus. The duodenum was cannulated to the descending portion. The duodenum including the bulb was carefully inspected. There was a very minimal duodenitis with associated edema and erythema in the duodenal bulb, but no erosions or ulceration. The second and third portions of duodenum appeared normal. Biopsies were obtained from the second and third portions of the duodenum. The scope was withdrawn back in the stomach. The gastric antrum and body had some changes of some chronic gastritis with some areas of pallor and edema. There were no erosions nor ulcerations. There was good peristalsis. Biopsies were obtained from the gastric antrum. The scope was retroflexed, visualizing the proximal stomach carefully, which appeared very normal, without mass or ulceration, other than several hyperplastic appearing gastric polyps. These were not biopsied. The scope was straightened and withdrawn back to the esophagus. Of note, there was a minimal hiatal hernia noted. The esophageal mucosa appeared normal, without any sign of esophagitis nor any mucosal lesions. The scope was withdrawn from the patient. He tolerated the procedure well and was returned to the recovery area in stable condition. IMPRESSION: 1. Changes of mild chronic gastritis. 2. Mild duodenitis. 3. Rule out celiac disease. PLAN: The results of the biopsies will be checked. At this point, he is not having any particular upper GI complaints, and therefore, I do not think he needs to be on any specific treatment in regard to acid suppression. I do not see any obvious inflammation or any other pathology that would account for anemia. Of note, he did have followup laboratories recently, which showed a significant improvement with a hemoglobin of 12.3 on January 22 compared to 9.6 back in December. His MCV remains normal. His iron studies also improved with an iron of 103 and iron saturation of 42%. His B12 and folate levels were normal as well. He did have a positive anti parietal cell antibody, although negative intrinsic factor antibodies. At this point, he was advised to continue his current supplements including B12 and iron. He is not a candidate for colonoscopy as he is fairly immobile and a prep would not be feasible for him at home. However, again his blood count and iron studies have improved, which is certainly a reassuring sign. Therefore, at this point, if things remain stable in regard to his blood count, I do not think I would pursue any further workup. He was advised to stay off his aspirin and avoid NSAIDs for at least a week. This has all been discussed with his . MD JOSE Peck/MAYITO / [id number]
== END 2024-01-30 14:31 | disposition home or self-care (01) ==
PROVIDERS: PCP Internal Medicine; Visit Provider Internal Medicine
PROC: 0DJ08ZZ Inspection of Upper Intestinal Tract, Via Natural or Artificial Opening Endoscopic (ICD-10-PCS; CPT 43235; principal; 2024-01-30 13:00)
DX: D50.9 Iron deficiency anemia, unspecified (principal); K29.50 Unspecified chronic gastritis without bleeding; K29.80 Duodenitis without bleeding; K31.7 Polyp of stomach and duodenum; K44.9 Diaphragmatic hernia without obstruction or gangrene; I10 Essential (primary) hypertension; G57.90 Unspecified mononeuropathy of unspecified lower limb; J44.9 Chronic obstructive pulmonary disease, unspecified; D51.8 Other vitamin B12 deficiency anemias; F41.9 Anxiety disorder, unspecified; Z79.82 Long term (current) use of aspirin; Z79.899 Other long term (current) drug therapy; Z99.3 Dependence on wheelchair; Z87.891 Personal history of nicotine dependence
CPT/HCPCS: 43239; 82947; 88305; 88313; 88342; 93005; J2704

== ENCOUNTER 2024-02-20 07:17 | Outpatient (REF) | payer MEDICARE, SELFPAY | END 2024-02-20 07:18 | disposition home or self-care (01) | LOC: HO.LHD 07:17 | PROVIDERS: Visit Provider Internal Medicine Medical Oncology | DX: Z13.89 Encounter for screening for other disorder (principal) ==

== ENCOUNTER 2024-03-07 15:15 | Inpatient (IN) | payer MEDICARE, SELFPAY ==
[2024-03-07] VITALS (11 sets, daily range): BP systolic 85–116; BP diastolic 46–73; PULSE 66–85; RESP 14–20; TEMP 36.4–38.3; O2SAT 95–98; BMI 29.8
--- NOTE | 2024-03-07 | ECG_ITS ---
Test Reason : WEAKNESS Blood Pressure : / mmHG Vent. Rate : 070 BPM Atrial Rate : 070 BPM P-R Int : 180 ms QRS Dur : 094 ms QT Int : 446 ms P-R-T Axes : 037 -27 035 degrees QTc Int : 481 ms Sinus rhythm with Premature atrial complexes Incomplete right bundle branch block Cannot rule out Anterior infarct , age undetermined Abnormal ECG When compared with ECG of 23-JAN-2024 13:10, Premature atrial complexes are now Present Minimal criteria for Anterior infarct are now Present T wave amplitude has decreased in Lateral leads Referred By: Generic ED Physician Electronically Signed By:REENA SWANSON
--- NOTE | ~2024-03-07 | XR_ITS ---
EXAMINATION: XR CHEST CLINICAL INFORMATION: Cough, fever. COMPARISON: Chest x-ray 07/03/2019 TECHNIQUE: Frontal view of the chest was obtained. FINDINGS: The lungs are hypoexpanded without acute process. Heart size enlarged with prominent bilateral hilar interstitial markings questioned in distal pneumonitis versus edema. No gross bony abnormality seen. XR/XR chest 1V IMPRESSION: Prominent bilateral parahilar interstitial markings question pneumonitis versus edema. Cardiomegaly. Electronically signed by: Memo Thompson MD 03/07/2024 05:20 PM EDT
--- NOTE | ~2024-03-07 | CT_ITS ---
EXAMINATION: CT ABDOMEN AND PELVIS WITHOUT CONTRAST CLINICAL INFORMATION: Abdominal pain, nausea/vomiting COMPARISON: CT abdomen and pelvis 03/07/2024 TECHNIQUE: Multidetector volumetric imaging was performed from the superior aspect of the liver through the pubic symphysis. Sagittal and coronal reformatted images were obtained on the technologist's workstation. This CT examination was performed using dose optimization techniques as appropriate, variously including the following: *Automated exposure control *Adjustment of mA and/or kV according to patient size (this includes techniques or standardized protocols for targeted exams where dose is matched to indication/reason for exam; i.e. extremities or head) *Use of iterative reconstruction technique DLP: 829 mGy-cm FINDINGS: Evaluation of solid organs, vascular structures, and bowel wall limited in the absence of intravenous contrast. LUNG BASES: Moderate multivessel coronary artery calcifications present. Increased small bilateral dependent pleural effusions with bibasilar atelectasis and/or consolidation. LIVER AND BILIARY TREE: Unremarkable. GALLBLADDER: Redemonstrated porcelain, stone filled gallbladder without evidence for acute cholecystitis. PANCREAS: Diffuse pancreatic parenchymal atrophy again seen. SPLEEN: Unremarkable. ADRENAL GLANDS: Unremarkable. KIDNEYS AND URETERS: Unremarkable. GASTROINTESTINAL TRACT: Mild scattered colonic diverticulosis without evidence of acute diverticulitis. Mild inflammatory fat stranding centered in the right upper quadrant in the region of the colonic hepatic flexure. Decreased fluid distention of small bowel loops throughout. Long segment wall thickening of a decompressed region of mid/distal ileum in right pelvis (series 4, image 24) similar to slightly increased compared with 03/07/2024. Normal appendix. VASCULAR: Unremarkable LYMPH NODES: No lymphadenopathy. PERITONEUM: Mild right paracolic gutter fluid. Mild right lower quadrant mesenteric interloop stranding. BLADDER: Unremarkable. PELVIC VISCERA: Unremarkable. ABDOMINAL AND PELVIC WALL: Mild flank anasarca. OSSEOUS STRUCTURES: Unremarkable. CT/CT abdomen pelvis wo IV con IMPRESSION: 1. Compared to 03/07/2024, decreased fluid distention of small bowel loops throughout with similar to slightly increased thickening of a long segment of mid/distal ileum, suggestive of nonspecific enteritis. Of note, noncontrast technique precludes assessment for bowel ischemia. 2. Redemonstrated porcelain, stone filled gallbladder without evidence for acute cholecystitis. 3. Increased small bilateral dependent pleural effusions and bibasilar atelectasis and/or consolidation. Electronically signed by: Ford Torres MD 03/14/2024 11:42 AM EDT
--- NOTE | ~2024-03-07 | US_ITS ---
EXAMINATION: US ABDOMEN LIMITED CLINICAL INFORMATION: Right upper quadrant pain, bilious vomiting. COMPARISON: CT abdomen/pelvis March 07, 2020 TECHNIQUE: Real-time imaging of the right upper quadrant abdominal viscera. FINDINGS: GALLBLADDER: Unable to be evaluated due gallbladder collapsed around large gallstone. No pericholecystic fluid. COMMON BILE DUCT: Normal in caliber measuring 0.7 cm in diameter. US/US abdomen limited IMPRESSION: Normal CBD. Gallbladder unable to be evaluated due to collapsed around large gallstone. If there is concern for acute cholecystitis, recommend HIDA scan. Electronically signed by: Paxton aBrkley DO 03/07/2024 10:23 PM EDT
--- NOTE | ~2024-03-07 | CT_ITS ---
EXAMINATION: CT ABDOMEN AND PELVIS WITH CONTRAST CLINICAL INFORMATION: Lower abdominal pain, fever. Rule out diverticulitis. COMPARISON: None available. TECHNIQUE: Multidetector volumetric images were obtained from the superior aspect of the liver through the pubic symphysis following administration 85 mL of Omnipaque 350 intravenous contrast. Sagittal and coronal reformatted images were obtained on the technologist's workstation. Oral contrast: No This CT examination was performed using dose optimization techniques as appropriate, variously including the following: *Automated exposure control *Adjustment of mA and/or kV according to patient size (this includes techniques or standardized protocols for targeted exams where dose is matched to indication/reason for exam; i.e. extremities or head) *Use of iterative reconstruction technique DLP: 1314 mGy-cm FINDINGS: LUNG BASES: There is bibasilar small effusions and underlying atelectasis/infiltrates. Heart size is normal. No pericardial effusion seen. LIVER, GALLBLADDER, AND BILIARY TREE: The liver is normal in size, shape, and attenuation. No focal hepatic lesion or biliary ductal dilatation is present. There are multiple impacted gallstones. PANCREAS: Unremarkable. SPLEEN: Unremarkable. ADRENAL GLANDS: Unremarkable. KIDNEYS AND URETERS: The kidneys are normal in size, shape, and attenuation. No hydronephrosis, hydroureter, or calculi seen. No perinephric stranding. BLADDER: Unremarkable. GASTROINTESTINAL TRACT: There are multiple dilated small bowel loops in the midabdomen width minimal thickening involving the distal ileum. Also visualizes middle thickening involving the ascending colon with stool and gas within. There is mild haziness seen throughout the mesentery but no focal fluid collection or abscess or free air. There is scattered colonic diverticulosis without diverticulitis. The stomach is distended. There is no free air or free fluid. ABDOMINAL WALL: No significant hernia is appreciated. LYMPH NODES: There are scattered small lymph nodes seen throughout the retroperitoneum, nonspecific. VASCULAR: The abdominal aorta is of normal caliber. PELVIC VISCERA: The prostate gland is mildly enlarged with central gland calcification. Nonspecific mild thickening of the rectum is seen OSSEOUS STRUCTURES: No aggressive lytic or sclerotic process is seen. There is mild degenerative disc changes L1-2 and L5-S1 disc levels. CT/CT abdomen pelvis w IV con IMPRESSION: Multiple dilated small bowel loops mid abdomen with distal small bowel wall thickening suspicious for enteritis. There is nonspecific mild mural thickening of the ascending colon as well but no pericolonic fat stranding. There is diffuse mesenteric haziness question edema. No free air or free fluid seen. Scattered colonic diverticulosis Cholelithiasis with impacted stones in the gallbladder. Bilateral small pleural effusions with underlying atelectasis. Mild prostate enlargement. Fleischner guidelines were followed. Electronically signed by: Memo Thompson MD 03/07/2024 06:50 PM EDT RP
--- NOTE | ~2024-03-07 | NM_ITS ---
Indication: Impacted gallstones with sepsis EXAMINATION: HIDA scan. Comparison ultrasound dated 03/07/[address] 03/07/2024. 5 mCi technetium 99m mebrofenin administered. Images obtained over the right upper quadrant. Sequential images to 60 minutes. There is some delay in uptake by the liver and some retention in the liver by 60 minutes. Ductal activity by 17 minutes. Bowel activity by 32 minutes. No convincing evidence for gallbladder visualization at 60 minutes. The patient is brought back for 4 hour study. The 4 hour image is felt to be nondiagnostic. There is significant uptake within the bowel which makes interpretation of the delayed imaging nondiagnostic NM/NM hepatobiliary wo pharm IMPRESSION: Nonvisualization of the gallbladder by 60 minutes. As described on the 4 hour film there is significant uptake in bowel in the expected region of the gallbladder therefore this exam is nondiagnostic Electronically signed by: Rommel Cope MD 03/08/2024 06:31 PM EDT
--- NOTE | 2024-03-07 15:45 | PC.NURSE ---
pt biba from home d/t multiple complaints. pt presents to ED after reports generalized abd pain w/ associated nausea/vomiting/productive cough x last night around dinner time. upon ED arrival - a&ox3. pt mostly oriented but unaware on why he's here - states, my sent me. pt seemingly hot to the touch. rectal temp obtained displaying 101. pt hypotensive. otherwise vss and up to date. nsr on the alarm security or surveillance monitor. two, 20gIVs placed in the forearms bilaterally - wrapped w/ curex bandage for safety precautions. labs obtained/sent to lab. IVF administered per provider order. pt denies pain but seems to wince/grimace w/ abdomen palpation. pain seems to radiate to flanks bilaterally. no sob/wob noted. respirations even/unlabored. bedside for support. plan of care ongoing. call cortes placed within reach.
[2024-03-07 15:52] LABS: Hematocrit 39.4 % (42.0-52.0); Hemoglobin 13.5 g/dl (14.0-18.0); Mean Corpuscular HGB Conc 34.3 g/dl (31.0-36.0); Mean Corpuscular Hemoglobin 32.1 pg (27.0-33.0); Mean Corpuscular Volume 93.6 fL (80.0-98.0); Mean Platelet Volume 8.9 fL (9.4-12.4); Platelet Count 251 X10*3/uL (160-400); Red Blood Count 4.21 X10*6/uL (4.60-5.80); Red Cell Distribution Width 14.3 % (11.0-16.0); White Blood Count 21.3 X10*3/uL (4.8-10.8)
--- NOTE | 2024-03-07 16:04 | ED_ITS ---
HPI - Abdominal Pain General Chief Complaint: Abdominal Pain Stated Complaint: abd pain, nausea,weakness Time Seen by Provider: 03/07/24 16:03 Source: patient and family (, Filomena) Mode of arrival: EMS Limitations: no limitations History of Present Illness ED Provider: Dr. Deng Bauer HPI narrative: 83-year-old male with a history of diabetes mellitus, hypertension, anemia diagnosed 4 weeks prior followed by Dr. Miranda who presents emergency department by ambulance for evaluation of nausea, vomiting, lower abdominal pain, cough and weakness. The patient states he has been having lower abdominal pain for 2 days, left side greater than right. Patient has also had a cough which is productive of thick phlegm. According to his , he had no appetite and did eat last night. Yesterday around dinner time he began vomiting. He had multiple episodes of vomiting with no blood in the emesis. Patient states that he did have subjective fever and chills. He is incontinent of urine but did complain of dysuria. He has been constipated and has had no bowel movement for 2 days. He states he has chest pain with cough and feels short of breath with coughing. He had increased weakness therefore his called an ambulance the patient was brought to emergency department for evaluation. Related Data Home Medications ?Medication ?Instructions ?Recorded ?Confirmed aspirin 81 mg tablet,delayed 81 mg PO QAM 05/19/20 01/23/24 release (Adult Low Dose Aspirin) cholecalciferol (vitamin D3) 25 25 mcg PO QAM 01/23/24 01/23/24 mcg (1,000 unit) capsule escitalopram oxalate 20 mg tablet 20 mg PO QAM 01/23/24 01/23/24 folic acid 1 mg tablet 1 mg PO QAM 01/23/24 01/23/24 losartan 25 mg tablet 25 mg PO QAM 01/23/24 01/23/24 metoprolol succinate 25 mg 25 mg PO QAM 01/23/24 01/23/24 tablet,extended release 24 hr Previous Rx's ?Medication ?Instructions ?Recorded ascorbic acid (vitamin C) 500 mg 500 mg PO Q12H #180 caps 11/29/23 capsule,extended release (Vitamin C) ferrous sulfate 325 mg (65 mg 325 mg PO BID #180 tabs 11/29/23 iron) tablet cyanocobalamin (vitamin B-12) 1,000 mcg sublingual DAILY #90 ea 12/02/23 1,000 mcg sublingual lozenge Allergies Allergy/AdvReac Type Severity Reaction Status Date / Time No Known Allergies Allergy Verified 03/07/24 15:28 [No Known Allergies*] Review of Systems Review of Systems Yes all other systems are reviewed and are negative [facility] Past Medical History [facility] Narrative: Social history: Patient denies tobacco use was a former smoker and stop smoking 56 years ago. He denies alcohol use. He lives at home with his who is here in the emergency department with him. 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 Brother No problems noted. Brother No problems noted. Sister No problems noted. Son No problems noted. Son No problems noted. Son No problems noted. Son No problems noted. Daughter No problems noted. Daughter No problems noted. Daughter No problems noted. Social History Social History Housing: House Are you a primary home care scheduler to a significant other at home: No Do you presently have visiting nurse or other home services: No Patient Tobacco Use Status: Former Tobacco user Tobacco use type: Cigarette Years Smoked: 15 Smoked in Last 30 Days: No e-Cigarette/Vaping Use: Never Used Use of substances other than those prescribed or required for medical reasons: No Advance Directives: Yes Advance Directives on File: Yes Advance Directives Date on File: 03/05/22 service: Yes Current occupational status: retired Cognitive needs: No Hearing needs: No Vision needs: No Physical Exam ED Vital Signs: Vital Signs - 24 hr 03/07/24 15:24 03/07/24 15:38 03/07/24 16:14 Temperature 97.6 F 101 F H Pulse Rate 71 66 Respiratory Rate 16 18 Blood Pressure 87/47 L 85/46 L Pulse Oximetry 96 97 Oxygen Delivery Method Room Air Room Air 03/07/24 17:06 03/07/24 17:26 03/07/24 17:57 Temperature 98.1 F 97.6 F Pulse Rate 81 85 80 Respiratory Rate 16 19 16 Blood Pressure 112/47 L 111/50 L 116/73 Pulse Oximetry 98 97 96 Oxygen Delivery Method Room Air Room Air Room Air 03/07/24 18:18 03/07/24 19:17 Temperature 98.1 F 97.7 F Pulse Rate 76 73 Respiratory Rate 14 18 Blood Pressure 107/47 L 100/59 L Pulse Oximetry 95 98 Oxygen Delivery Method Room Air Room Air BMI result Body Mass Index 29.8 Vital signs revealed a fever of 101.5 degrees F, hypotension with a blood pressure of 87/47 O2 saturation was 96% on room air Exam: General: Awake, alert in no distress, oriented to person and place, does answer questions appropriately but does defer to his to answer questions as well Head: Normocephalic, atraumatic EENT: PERRL, Lids normal, sclera normal, conjunctiva normal, nose normal , ears normal, throat without erythema or exudates Neck: Supple, no adenopathy Lung: breath sounds symmetric, no wheezing, rales or rhonchi Chest: symmetric movement, nontender Heart: regular rate and rhythm, normal S1, S2 no murmurs or rubs Abdomen: soft, mild to moderate right lower quadrant tenderness, moderate left lower quadrant tenderness, mild diffuse tenderness, normoactive bowel sounds, voluntary guarding in the left lower quadrant no rebound Back: no vertebral tenderness, moderate left-sided CVA tenderness Extremities: no deformities, moves all extremities symmetrically Neuro: Awake, alert, oriented, normal speech, cranial nerves intact, moves all extremities symmetrically Psych: Pleasant, cooperative Medical Decision Making Medical Decision Making MDM Narrative: 83-year-old male with a history of diabetes mellitus, hypertension, anemia diagnosed 4 weeks prior followed by Dr. Miranda who presents emergency department by ambulance for evaluation of nausea, vomiting, lower abdominal pain, cough and weakness x2 days with symptoms getting worse last night around dinner time. Vital signs revealed fever of 101 degrees F and hypotension with a blood pressure of 87/47. Abdominal exam revealed mild diffuse tenderness with both left and right lower quadrant tenderness with increased tenderness in the right lower quadrant and voluntary guarding in the right lower quadrant. He also had left CVA tenderness. 16:27 Differential diagnosis: ?Includes but is not limited to diverticulitis, pancreatitis, appendicitis, urinary tract infection, pyelonephritis, pneumonia, sepsis, anemia, electrolyte abnormalities Following evaluation was ordered: CBC, CMP, lipase, lactic acid, COVID-19, RSV, influenza, chest x-ray one view, CT scan of the abdomen pelvis with IV contrast, 12 EKG, IV insert, cardiac monitoring, O2 saturation monitoring Patient was initially treated with the following: Lactated Ringer's 30 cc/kilogram bolus (2993.7 mL), Tylenol 650 mg rectally, Zosyn 4.5 g IV Course: 16:27 Patient meets SIRS criteria and sepsis criteria with fever and hypotension. Patient was made a sepsis protocol and blood pressure be re-evaluated after he completes his LR bolus. 19:23 The patient did receive a total of 4 L of lactated Ringer's. Patient's initial lactic acid was 3.7 repeat increased to 4.6. Patient's blood pressure did improve with the fluid bolus and he was not hypotensive at this time. The patient's states he normally runs low blood pressures. The chest x-ray is concerning for bilateral infiltrates and I do not think that he was CHF. CT scan of the abdomen pelvis did reveal dilated loops of small bowel as well as inflammatory changes in the ascending colon-he does have bilateral abdominal tenderness and I believe that his infectious source may be his: As opposed to his lungs. Patient was treated with Zosyn should cover both sources of infection. I did discuss the patient's presentation with the covering hospitalist, Dr. Pineda. After this discussion we both believe that the patient does not need further IV fluid and that has next lactic acid will most likely correct since hypotension is being corrected therefore we are not starting pressors at this time for an elevated lactic acid. Admission/Observation Consideration of admission/observation: Escalation of care including admission/observation considered (Yes) Lab Data MDM Lab Attestation statement: I reviewed the patient's lab results. 16:31 My independent interpretation patient's laboratory evaluation is as follows: WBC elevated 21,300 with left shift and 23% bands. Normocytic anemia with an H&H of 13.5 and 39.4, improved compared to 8.1 and 25.5 from 11/29/2023. Glucose elevated 123. Lactic acid elevated 3.7, bilirubin elevated 1.4. COVID-19, influenza and RSV were negative. 19:07 Patient's repeat lactic acid did did increased from 3.7-4.6 despite receiving 4 L of lactated Ringer's. 03/07/24 15:44 03/07/24 15:44 Labs: Lab Results 03/07/24 03/07/24 03/07/24 Range/Units 15:44 16:31 18:17 WBC 21.3 H (4.8-10.8) X10*3/uL RBC 4.21 L (4.60-5.80) X10*6/uL Hgb 13.5 L (14.0-18.0) g/dl Hct 39.4 L (42.0-52.0) % MCV 93.6 (80.0-98.0) fL MCH 32.1 (27.0-33.0) pg MCHC 34.3 (31.0-36.0) g/dl RDW 14.3 (11.0-16.0) % Plt Count 251 (160-400) X10*3/uL MPV 8.9 L (9.4-12.4) fL Immature Gran % (Auto) Cancelled Neut % (Auto) Cancelled Lymph % (Auto) Cancelled [place] % (Auto) Cancelled Eos % (Auto) Cancelled Baso % (Auto) Cancelled Lymph # (Auto) Cancelled [place] # (Auto) Cancelled Eos # (Auto) Cancelled Baso # (Auto) Cancelled Abs Immat Gran (auto) Cancelled Absolute Neuts (auto) Cancelled Absolute Nucleated RBC 0.000 (0.0-0.012) X10*3/uL Nucleated RBC % (auto) 0.0 (0.0-0.2) /100WBC Neutrophils % (Manual) 66 (45-73) % Band Neutrophils % 23 H (3-5) % Lymphocytes % (Manual) 2 L (20-40) % Monocytes % (Manual) 9 (2-11) % Abs Neuts (Manual) 19.0 H (2.0-8.3) X10*3/uL Lymphocytes # (Manual) 0.4 L (1.2-4.9) X10*3/uL Monocytes # (Manual) 1.9 H (0.1-1.2) X10*3/uL Platelet Estimate NORMAL (NORMAL) Plt Morphology Comment NORMAL RBC Morphology NORMAL Smear Tech's Comments MANUAL DIFF Sodium 141 (135-145) mmol/L Potassium 4.7 (3.3-5.1) mmol/L Chloride 105 (96-108) mmol/L Carbon Dioxide 27 (22-29) mmol/L Anion Gap 14 (12-20) BUN 12 (9-16) mg/dL Creatinine 0.87 (0.5-1.4) mg/dL Estim Creat Clear Calc 78.6 Estimated GFR > 60 Random Glucose 123 H (60-115) mg/dL Lactic Acid 3.7 H* (0.5-2.0) mmol/L Lactic Acid F/U @ 2Hr 4.6 H* (0.5-2.0) mmol/L Calcium 9.0 (8.4-10.2) mg/dL Total Bilirubin 1.4 H (0.0-1.0) mg/dL AST 18 (5-37) U/L ALT 5 (0-40) U/L Alkaline Phosphatase 78 (39-117) U/L Troponin I High Sens 6.2 7.9 (<3.5-35.0) ng/L B-Natriuretic Peptide 122 H (<100) pg/mL Total Protein 6.6 (6.5-8.0) g/dL Albumin 2.8 L (3.5-5.0) g/dL Lipase 6 L (8-78) U/L Urine Color Yellow Urine Appearance Hazy Urine pH 6.5 (5.0-9.0) Ur Specific [place] >= 1.030 H (1.005-1.025) Urine Protein Trace (Neg-Trace) mg/dL Urine Glucose (UA) Negative (Negative) mg/dL Urine Ketones Trace (Negative) mg/dL Urine Blood Negative (Negative) Urine Nitrite Positive H (Negative) Ur Leukocyte Esterase Negative (Negative) Urine RBC 0-2 (0-2) /HPF Urine WBC 0-5 (0-5) /HPF Ur Squamous Epith Cells 0-2 (0-2) /HPF Urine Bacteria 1+ (None Seen) Hyaline Casts 0-2 (0-2) /LPF Influenza Type A (PCR) NEGATIVE (Negative) Influenza Type B (PCR) NEGATIVE (Negative) RSV RNA Qual (PCR) NEGATIVE (Negative) SARS-CoV-2 RNA (RT-PCR) NEGATIVE (Negative) Independent Interpretation I performed an independent interpretation of an: EKG Interpretation: My independent interpretation patient's 12 EKG done at 15:47 hours is as follows: Normal sinus rhythm with a rate of 70, normal ID interval, normal QRS duration, prolonged QTC interval of 481 milliseconds, no ST segment elevation, no ST segment depression, incomplete right bundle-branch block with an RR prime in V1 inverted T-waves V1 and V2. Radiology Impression Discussion of test interpretation with radiology: I have reviewed the radiologist's reading. Radiologist Impression: XR chest 1V IMPRESSION: Prominent bilateral parahilar interstitial markings question pneumonitis versus edema. Cardiomegaly. Electronically signed by: Memo Thompson MD 03/07/2024 05:20 PM EDT RP Dictated By: Memo Thompson MD CT abdomen pelvis w IV con IMPRESSION: Multiple dilated small bowel loops mid abdomen with distal small bowel wall thickening suspicious for enteritis. There is nonspecific mild mural thickening of the ascending colon as well but no pericolonic fat stranding. There is diffuse mesenteric haziness question edema. No free air or free fluid seen. Scattered colonic diverticulosis Cholelithiasis with impacted stones in the gallbladder. Bilateral small pleural effusions with underlying atelectasis. Mild prostate enlargement. Fleischner guidelines were followed. Electronically signed by: Memo Thompson MD 03/07/2024 06:50 PM EDT RP Dictated By: Memo Thompson MD Medications Administered Discontinued Medications Generic Name Dose Route Start Last Admin Trade Name Freq PRN Reason Stop Dose Admin Acetaminophen 650 mg 03/07/24 16:17 03/07/24 16:28 Acetaminophen Supp 650 Mg Supp.Rect ID 03/07/24 16:18 650 mg ONCE ONE Administration Lactated Ringer's 2,993.7 mls @ 2,993.7 mls/hr 03/07/24 16:17 03/07/24 17:25 Lr 30 ml/kg infuse over 1 hr (2993.7 ml) 03/07/24 17:16 Infused IV Infusion .Q1H ONE Piperacillin Sod/Tazobactam 100 mls @ 200 mls/hr 03/07/24 16:17 03/07/24 16:58 Sod 4.5 gm/ Sodium Chloride IV 03/07/24 16:46 Infused ONCE ONE Infusion Iohexol 100 ml 03/07/24 17:01 03/07/24 17:02 Iohexol 350 Mg/Ml 100 Ml Infus..Btl IV 03/07/24 17:02 85 ml ONCE ONE Administration Critical Care Time Critical Care Time Critical Care Time: Yes Total Critical Care Time: 85 Attestation: Critical Care: The patient was critically ill with a high probability of imminent or life threatening deterioration. I spent greater than 30 minutes of discontinuous time evaluating the patient,delivering critical care at the bedside, discussing and evaluating pertinent data with consultants. Critical care time does not include time spent performing separately billable procedures or teaching. Total time spent performing critical care was 85 minutes. Discharge Plan Discharge Patient Disposition: Admitted As Inpatient Prescriptions: No Action ferrous sulfate 325 mg (65 mg iron) Tablet 325 mg PO BID Qty: 180 4RF ascorbic acid (vitamin C) [Vitamin C] 500 mg Capsule, Extended Release 500 mg PO Q12H Qty: 180 3RF cyanocobalamin (vitamin B-12) 1,000 mcg Lozenge 1,000 mcg SUBLINGUAL DAILY Qty: 90 4RF losartan 25 mg Tablet 25 mg PO QAM metoprolol succinate 25 mg tablet extended release 24 hr 25 mg PO QAM folic acid 1 mg tablet 1 mg PO QAM cholecalciferol (vitamin D3) 25 mcg (1,000 unit) capsule 25 mcg PO QAM escitalopram oxalate 20 mg tablet 20 mg PO QAM aspirin [Adult Low Dose Aspirin] 81 mg tablet,delayed release (DR/EC) 81 mg PO QAM Patient Comments: on hold per MD order until after endoscopy Print Language: Italian
[2024-03-07 16:09] LABS: Lactic Acid 3.7 mmol/L (0.5-2.0)
[2024-03-07 16:13] LABS: Alanine Aminotransferase 5 U/L (0-40); Albumin Level 2.8 g/dL (3.5-5.0); Alkaline Phosphatase 78 U/L (39-117); Anion Gap 14 (12-20); Aspartate Amino Transferase 18 U/L (5-37); Bilirubin Total 1.4 mg/dL (0.0-1.0); Blood Urea Nitrogen 12 mg/dL (9-16); Carbon Dioxide 27 mmol/L (22-29); Chloride 105 mmol/L (96-108); Creatinine Clr Calc Pharmacy 78.6; Estimated Glomerular Filt Rate > 60; Glucose Random 123 mg/dL (60-115); Lipase 6 U/L (8-78); Potassium 4.7 mmol/L (3.3-5.1); Sodium 141 mmol/L (135-145); Total Protein 6.6 g/dL (6.5-8.0)
[2024-03-07 16:20] LABS: Neutrophils Percent Manual 66 % (45-73); SLIDE REVIEW MANUAL DIFF
[2024-03-07 16:22] LABS: Band Neutrophils Percent 23 % (3-5); Lymphocytes Absolute Manual 0.4 X10*3/uL (1.2-4.9); Lymphocytes Percent Manual 2 % (20-40); Monocytes Absolute Manual 1.9 X10*3/uL (0.1-1.2); Monocytes Percent Manual 9 % (2-11); Platelet Estimate NORMAL (NORMAL); Platelet Morphology Comment NORMAL; RBC Morphology NORMAL
[2024-03-07] MEDS: Piperacillin Sodium/Tazobactam 4.5 GM in 0.9 % Sodium Chloride 100 ML IV ×2 (16:28→23:22)
[2024-03-07] MEDS: Acetaminophen Supp 650 MG SUPP.RECT PR (16:28)
--- NOTE | 2024-03-07 16:28 | PC.NURSE ---
sepsis protocol initiated by Dr. Bauer. IVF/abx administered per provider order. rectal suppository administered - effectiveness pending.
[2024-03-07 16:30] LABS: Influenza A PCR NEGATIVE (Negative); Influenza B PCR NEGATIVE (Negative); Resp Syncy Virus RNA Qual PCR NEGATIVE (Negative); SARS COV2 PCR INHOUSE NEGATIVE (Negative)
--- NOTE | 2024-03-07 16:38 | PC.NURSE ---
pt incontinent of urine. [place] catheter placed on pt but was unsuccessful. external catheter removed. pericare performed. new bedding/pads applied.
[2024-03-07 16:41] LABS: Appearance Urine Hazy; Color Urine Yellow; Glucose Urine UA Negative (Negative); Leukocyte Esterase Urine Negative (Negative); Nitrite Urine Positive (Negative); PH 6.5 (5.0-9.0); Specific Gravity - Urine >= 1.030 (1.005-1.025); UMIC TRIGGER UACC YES; Urine Blood Negative (Negative); Urine Ketones Trace mg/dL (Negative); Urine Protein Trace mg/dL (Neg-Trace)
[2024-03-07 16:46] LABS: Bacteria Urine 1+ (None Seen); Hyaline Casts Urine 0-2 /LPF (0-2); RBC Urine 0-2 /HPF (0-2); Squamous Epithelial Cell Urine 0-2 /HPF (0-2); UACC Culture Trigger YES; WBC Urine 0-5 /HPF (0-5)
--- NOTE | 2024-03-07 16:46 | PC.NURSE ---
pt to CT at this time. plan of care ongoing.
[2024-03-07] MEDS: iohexoL 350 MG/ML 100 ML INFUS..BTL IV (17:02)
--- NOTE | 2024-03-07 17:02 | PC.NURSE ---
chest xray being completed at this time.
[2024-03-07 17:47] LABS: Reflex Lactate? Lactic Acid Added
[2024-03-07 18:04] LABS: Troponin-I High Sensitivity 6.2 ng/L (<3.5-35.0)
--- NOTE | 2024-03-07 18:04 | PC.NURSE ---
pt's BP continues to improve s/p IVF administration. pt no longer febrile. resting comfortably in no apparent distress. pt waiting for CT results at this time. bedside for support. plan of care ongoing. call cortes placed within reach.
[2024-03-07 18:09] LABS: B Type Natriuretic Peptide 122 pg/mL (<100)
--- NOTE | 2024-03-07 18:13 | PC.NURSE ---
repeat lactic obtained/sent to lab by tech.
[2024-03-07 18:45] LABS: ~Lactic Acid-LAB USE ONLY 4.6 mmol/L (0.5-2.0)
[2024-03-07 18:48] LABS: Troponin-I High Sensitivity 7.9 ng/L (<3.5-35.0)
--- NOTE | 2024-03-07 20:02 | PM.IMHP ---
History of Present Illness Date of Service: 03/07/24 Attending physician on admission: Kvng Pineda Chief Complaint: nausea and vomiting, weakness 83-year-old male with a history of diabetes mellitus, hypertension, anemia, diabetic polyneuropathy, chronic venous stasis, htn presented to the ED earlier today for evaluation of multiple symptoms. Reports for the last two days has had constant nausea with recurrent vomiting. Initially vomitus was yellow, but now green. He has had RUQ and occassional RLQ pain. Has not tolerated much PO and has little appetite. reports chronic nighttime productive cough, but last night cough worsened with increase in yellow sputum production. He is incontinent of urine and feces at baseline and reports decreased urine output with dysuria and has not had a BM in 2 days. No reported fevers, chills, st, congestion, diarrhea, hematemesis, melena, hematachezia, lightheadedness, palpitations, wheezing or chest pain. On arrival was hypotensive with improvement in BP to 109/59 on admission followign 3L IVF. Initially febrile to 100, but vitals otherwise wnl. There is a leukocytosis of 21.3 with 23% bandemia. Renal function baseline, lytes wnl. Initial lactic acid 3.7, repeat 4.6. Total bili 1.4, hepatic function otherwise wnl. Trops wnls, BNP 122. Lipase 6. UA with elevated SG and +nitrities with 1+ bacteria. No leuks or wbcs. Negative for covid, flu, rsv. CXR shows prominent bialteral parahilar interstitial markings with question of pneumonitis and edema. CT abd/pelvis shows multiple dilated small bowel loops mid abd with distal small bowel wall thickening suspicious for enteritis. There are also impacted gallstones, small bilateral pelural effusions with underlying atelectasis, prostate enlargement. In the ED, given tylenol, 3L IV LR, 4.5g zosyn. He will be admitted for further management of severe sepsis secondary to enteritis with symptomatic cholelithiasis. 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 Brother No problems noted. Brother No problems noted. Sister No problems noted. Son No problems noted. Son No problems noted. Son No problems noted. Son No problems noted. Daughter No problems noted. Daughter No problems noted. Daughter No problems noted. Surgical History History of knee surgery History of colonoscopy Social History (Updated 03/08/24 @ 02:32 by Mary Beth Eckert RN) Household Members: Spouse and Other Household Members Other:: and grandson Housing: House Are you a primary emergency care attendant to a significant other at home: No Do you presently have visiting nurse or other home services: No Patient Tobacco Use Status: Former Tobacco user Tobacco use type: Cigarette Years Smoked: 15 Smoked in Last 30 Days: No e-Cigarette/Vaping Use: Never Used Patient Interested in Nicotine Replacement: No Patient Given Instructions on How to Stop Smoking: No Second Hand Smoke Exposure: No Use of substances other than those prescribed or required for medical reasons: No Currently Displaying Signs/Symptoms of Drug Intoxication Withdrawal: No Any prior treatment program specific to substance use: No Have you been hit, kicked, punched, or otherwise hurt by someone within the past year? If so, by whom?: No Do you feel safe in your current relationship?: Yes Is there a partner from a previous relationship who is making you feel unsafe now?: No Are you made to feel afraid or neglected: No Advance Directives: Yes Advance Directives on File: Yes Advance Directives Date on File: 03/05/22 Do you have thoughts of harming others: None Do you have a plan to hurt others: No Plan Do you have the means to hurt others: No Recently lost weight without trying: No How much weight loss: Not applicable Eating poorly because of decreased appetite: No Nutrition screen score: 0 Nutrition Risks: No Nutritional Risk Poor oral hygiene: No service: No Current occupational status: retired Current occupational exposures/hazards: No Cognitive needs: No Hearing needs: No Vision needs: No Meds Allergies Allergy/AdvReac Type Severity Reaction Status Date / Time No Known Allergies Allergy Verified 03/07/24 15:28 [No Known Allergies*] Active Medications: Current Medications Albumin Human (Kedbumin 25 %) 100 mls @ 100 mls/hr IV Q1H MANUEL Stop: 03/07/24 21:44 Home Medications ?Medication ?Instructions ?Recorded ?Confirmed ?Last Taken ?Type aspirin 81 mg tablet,delayed 81 mg PO QAM 05/19/20 01/23/24 01/20/24 History release (Adult Low Dose Aspirin) cholecalciferol (vitamin D3) 25 25 mcg PO QAM 01/23/24 01/23/24 Unknown History mcg (1,000 unit) capsule escitalopram oxalate 20 mg tablet 20 mg PO QAM 01/23/24 01/23/24 Unknown History folic acid 1 mg tablet 1 mg PO QAM 01/23/24 01/23/24 Unknown History losartan 25 mg tablet 25 mg PO QAM 01/23/24 01/23/24 Unknown History metoprolol succinate 25 mg 25 mg PO QAM 01/23/24 01/23/24 01/30/24 History tablet,extended release 24 hr Physical Exam Vital Signs and Narrative: Vital Signs: Last Vital Signs Temp 97.7 F 03/07/24 19:17 Pulse 73 03/07/24 19:17 Resp 18 03/07/24 19:17 BP 100/59 L 03/07/24 19:17 Pulse Ox 98 03/07/24 19:17 O2 Del Method Room Air 03/07/24 19:17 BMI result Body Mass Index 29.8 Constitutional - Awake and Alert, No apparent distress Eyes - PERRLA, EOMI Cardiovascular - S1S2, RRR, No edema Respiratory - Normal lung expansion, Normal respiratory effort, No respiratory distress, diminished bases Gastrointestinal - RUQ ttp with negative silva sign. ND; +BS; No rebound or guarding Extremities - no calf tenderness bilaterally, no swelling Skin - Warm/Dry Neurological - Alert & oriented x3 Psychological - Appropriate affect Results Labs 03/07/24 15:44 03/07/24 15:44 Labs: Laboratory Results - last 24 hr 03/07/24 03/07/24 03/07/24 15:44 16:31 18:17 MCV 93.6 MCH 32.1 MCHC 34.3 RDW 14.3 Plt Count 251 MPV 8.9 L Immature Gran % (Auto) Cancelled Neut % (Auto) Cancelled Lymph % (Auto) Cancelled [place] % (Auto) Cancelled Eos % (Auto) Cancelled Baso % (Auto) Cancelled Lymph # (Auto) Cancelled [place] # (Auto) Cancelled Eos # (Auto) Cancelled Baso # (Auto) Cancelled Abs Immat Gran (auto) Cancelled Absolute Neuts (auto) Cancelled Absolute Nucleated RBC 0.000 Nucleated RBC % (auto) 0.0 Neutrophils % (Manual) 66 Band Neutrophils % 23 H Lymphocytes % (Manual) 2 L Monocytes % (Manual) 9 Abs Neuts (Manual) 19.0 H Lymphocytes # (Manual) 0.4 L Monocytes # (Manual) 1.9 H Platelet Estimate NORMAL Plt Morphology Comment NORMAL RBC Morphology NORMAL Smear Tech's Comments MANUAL DIFF Anion Gap 14 Estim Creat Clear Calc 78.6 Estimated GFR > 60 Random Glucose 123 H Lactic Acid 3.7 H* Lactic Acid F/U @ 2Hr 4.6 H* Calcium 9.0 Total Bilirubin 1.4 H AST 18 ALT 5 Alkaline Phosphatase 78 Troponin I High Sens 6.2 7.9 B-Natriuretic Peptide 122 H Total Protein 6.6 Albumin 2.8 L Lipase 6 L Urine Color Yellow Urine Appearance Hazy Urine pH 6.5 Ur Specific [place] >= 1.030 H Urine Protein Trace Urine Glucose (UA) Negative Urine Ketones Trace Urine Blood Negative Urine Nitrite Positive H Ur Leukocyte Esterase Negative Urine RBC 0-2 Urine WBC 0-5 Ur Squamous Epith Cells 0-2 Urine Bacteria 1+ Hyaline Casts 0-2 Influenza Type A (PCR) NEGATIVE Influenza Type B (PCR) NEGATIVE RSV RNA Qual (PCR) NEGATIVE SARS-CoV-2 RNA (RT-PCR) NEGATIVE Imaging Radiologist's Impressions: Impressions Chest X-Ray 03/07/24 16:17 IMPRESSION: Prominent bilateral parahilar interstitial markings question pneumonitis versus edema. Cardiomegaly. Electronically signed by: Memo Thompson MD 03/07/2024 05:20 PM EDT RP Abdomen/Pelvis CT 03/07/24 16:47 IMPRESSION: Multiple dilated small bowel loops mid abdomen with distal small bowel wall thickening suspicious for enteritis. There is nonspecific mild mural thickening of the ascending colon as well but no pericolonic fat stranding. There is diffuse mesenteric haziness question edema. No free air or free fluid seen. Scattered colonic diverticulosis Cholelithiasis with impacted stones in the gallbladder. Bilateral small pleural effusions with underlying atelectasis. Mild prostate enlargement. Fleischner guidelines were followed. Electronically signed by: Memo Thompson MD 03/07/2024 06:50 PM EDT RP Assessment and Plan (1) Pneumonia: Status: Acute (2) Enteritis: Status: Acute (3) Sepsis: Status: Acute Plan 83-year-old male with a history of diabetes mellitus, hypertension, anemia, diabetic polyneuropathy, chronic venous stasis, htn admitted for further management of severe sepsis due to enteritis with symptomatic cholelithiasis and suspected evolving pneumonia #Severe sepsis due to enteritis with symptomatic cholelithiasis -Leukocytosis 21 with bandemia, febrile, initially hypotensive (resolved with IVF), lactic acidosis. No shock on admission -Received 3L IVF. Continue gentle fluids (D5/LR and albumin) -Keep NPO given ongoing n/v, advance diet as tolerated -RUQ U/S, consider further with HIDA if indicated. Consider GI vs general surgery consult pending results -Antiemetics prn -IV zosyn (initiated 03/07) -Follow cbc, cultures #Acute hypotension -resolved on admission, r/t severe sepsis -IV albumin, continue gentle IVF #Acute lactic acidosis -3.6-->4.7. Repeat in 2 hours -Continue IVF. BP/map stable #Suspected evolving pneumonia -pneumonitis on cxr (doubt edema), ?aspiration in setting of recurrent vomiting -zosyn -sputum culture, strep pneumo ag, legionella ag #?Acute UTI -Nitrite + urine with 1+ bacteria. However, no pyuria -on zosyn as above. Follow cultures #Non insulin dependent type 2 diabetes -poc glucose, npo for now (on d5/LR) -admelog ss #HTN -hold antihypertensives in setting of above dvt ppx- lovenox dnr/dni- discussed with patient and at bedside pt requires inpt stay at least 2 midnights for management of severe sepsis requiring iv abx, ivf and close monitoring of hemodynamics to monitor for and prevent decompensation Quality Stroke Does the patient have a stroke diagnosis?: No VTE Prior VTE?: No VTE Risk Level:: Medical - moderate - high VTE Device Contraindication: Treatment Not Indicated VTE Drug Contraindication: N/A - Med Ordered
[2024-03-07 20:20] LABS: Reflex Lactate? 2 Y
[2024-03-07] MEDS: Enoxaparin Sodium 40 MG/0.4 ML SYRINGE SUBCUT (20:27)
[2024-03-07] MEDS: Albumin Human 25 % 100 ML IV ×2 (20:27→21:12)
[2024-03-07] MEDS: Dextrose 5 % and Lactated Ring 1,000 ML 75 ML IVCONT (20:35)
[2024-03-07 21:20] LABS: ~Lactic Acid-LAB USE ONLY 3.7 mmol/L (0.5-2.0)
--- NOTE | 2024-03-07 23:24 | PC.NURSE ---
this rn assumed care of pt, pt alert, respirations even and unlabored. pt denies pain at this time. pt vss. iv antibiotics administered.
--- NOTE | 2024-03-08 01:46 | PC.NURSE ---
Addendum entered by Adamaris Ramos 03/08/24 01:50: aware Original Note: pt noted to incontinent of urine, pt assisted in bed change. pt noted to have ecchymosis to the bilateral upper back of thigh, pt denies pain to the site.
[2024-03-08 02:09] VITALS: BP 111/54; PULSE 70; RESP 18; TEMP 36.6; O2SAT 97
[2024-03-08 02:15] VITALS: BMI 32.1
[2024-03-08 04:58] LABS: Glucose, Whole Blood 118 mg/dL (60-115)
[2024-03-08] MEDS: Piperacillin Sodium/Tazobactam 4.5 GM in 0.9 % Sodium Chloride 100 ML IV ×4 (06:03→23:17)
[2024-03-08 07:12] LABS: Hematocrit 31.1 % (42.0-52.0); Hemoglobin 10.6 g/dl (14.0-18.0); Mean Corpuscular HGB Conc 34.1 g/dl (31.0-36.0); Mean Corpuscular Hemoglobin 32.4 pg (27.0-33.0); Mean Corpuscular Volume 95.1 fL (80.0-98.0); Mean Platelet Volume 9.3 fL (9.4-12.4); Platelet Count 137 X10*3/uL (160-400); Red Blood Count 3.27 X10*6/uL (4.60-5.80); Red Cell Distribution Width 13.9 % (11.0-16.0)
[2024-03-08 07:19] VITALS: BP 108/55; PULSE 69; RESP 20; TEMP 36.7; O2SAT 95
[2024-03-08 07:22] LABS: Blood Urea Nitrogen 12 mg/dL (9-16); Calcium 8.4 mg/dL (8.4-10.2); Estimated Glomerular Filt Rate > 60; Glucose Random 115 mg/dL (60-115)
--- NOTE | 2024-03-08 07:27 | HO.PM.IMPN ---
Subjective Subjective Date of Service: 03/08/24 Interval History: seen in follow up interval history: no overnight events. feels slighlty better no ongoing n/v but still endorses anorexia. WBC/bands trending down. Vitals stable, no hypotension, afebrile Review of Systems Review of Systems: Yes all other systems are reviewed and are negative Physical Exam Vital Signs: Vital Signs: Last Vital Signs Temp 98.0 F 03/08/24 07:19 Pulse 69 03/08/24 07:19 Resp 20 03/08/24 07:19 BP 108/55 L 03/08/24 07:19 Pulse Ox 95 03/08/24 07:19 O2 Del Method Room Air 03/08/24 07:19 BMI result Body Mass Index 32.1 Constitutional - Awake and Alert, No apparent distress Eyes - PERRLA, EOMI Cardiovascular - S1S2, RRR, No edema Respiratory - Normal lung expansion, Normal respiratory effort, No respiratory distress, CTA bilaterally Gastrointestinal - NT / ND; +BS; No rebound or guarding Extremities - no calf tenderness bilaterally, no swelling Skin - Warm/Dry Neurological - Alert & oriented x3 Psychological - Appropriate affect Objective Data Active Medications Acetaminophen (Acetaminophen 325 Mg Tablet) 650 mg PO Q6H PRN PRN Reason: Pain, Mild (Pain Scale 1-3), fever or headache Calcium Carbonate (Calcium Carbonate 750 Mg Tab.Chew) 750 mg PO Q4H PRN PRN Reason: Heartburn Enoxaparin Sodium (Enoxaparin Sodium 40 Mg/0.4 Ml Syringe) 40 mg SUBCUT Q24H [facility] Last Admin: 03/07/24 20:27 Dose: 40 mg Documented By: BAYLEE Glucose (Glucose Gel 15 Gm Gel..Gram.) 15 gm PO Q15M PRN; Protocol PRN Reason: per Hypoglycemia Standing Ord. Piperacillin Sod/Tazobactam (Sod 4.5 gm/ Sodium Chloride) 100 mls @ 200 mls/hr IV Q6H [facility] Last Infusion: 03/08/24 07:00 Dose: Infused Documented By: PASHA Dextrose/Lactated Ringer's (D5lr) 1,000 mls @ 75 mls/hr IVCONT .[id number] [facility] Last Admin: 03/07/24 20:35 Dose: 75 mls/hr Documented By: HO.CRUZE Dextrose (D10) 250 mls @ 750 mls/hr IV Q15M PRN; Protocol PRN Reason: per Hypoglycemia Standing Ord. Insulin Human Lispro (Insulin Lispro 100 Unit/Ml 3 Ml Vial) 0 unit SUBCUT Q6H [facility]; Protocol Last Admin: 03/08/24 06:27 Dose: Not Given Documented By: PASHA Non-Admin Reason: No Insulin Coverage Magnesium Hydroxide (Milk Of Magnesia 30 Ml Oral.Susp) 30 ml PO DAILY PRN PRN Reason: Constipation Melatonin (Melatonin 3 Mg Tablet) 6 mg PO BEDTIME PRN PRN Reason: Insomnia Ondansetron HCl (Ondansetron Hcl 4 Mg/2 Ml Vial) 4 mg IVPUSH Q6H PRN PRN Reason: Nausea and Vomiting Sodium Chloride (0.9 % Sodium Chloride Flush 3 Ml Syringe) 3 ml IVFLUSH QSHIFT [facility] Last Admin: 03/08/24 00:25 Dose: Not Given Documented By: AICHA Non-Admin Reason: IV Running Labs 03/08/24 06:14 03/08/24 06:14 Labs: Laboratory Results - last 24 hr 03/07/24 03/07/24 03/07/24 15:44 16:31 18:17 MCV 93.6 MCH 32.1 MCHC 34.3 RDW 14.3 Plt Count 251 MPV 8.9 L Immature Gran % (Auto) Cancelled Neut % (Auto) Cancelled Lymph % (Auto) Cancelled [place] % (Auto) Cancelled Eos % (Auto) Cancelled Baso % (Auto) Cancelled Lymph # (Auto) Cancelled [place] # (Auto) Cancelled Eos # (Auto) Cancelled Baso # (Auto) Cancelled Abs Immat Gran (auto) Cancelled Absolute Neuts (auto) Cancelled Absolute Nucleated RBC 0.000 Nucleated RBC % (auto) 0.0 Neutrophils % (Manual) 66 Band Neutrophils % 23 H Lymphocytes % (Manual) 2 L Monocytes % (Manual) 9 Abs Neuts (Manual) 19.0 H Lymphocytes # (Manual) 0.4 L Monocytes # (Manual) 1.9 H Platelet Estimate NORMAL Plt Morphology Comment NORMAL RBC Morphology NORMAL Smear Tech's Comments MANUAL DIFF Anion Gap 14 Estim Creat Clear Calc 78.6 Estimated GFR > 60 POC Glucose Random Glucose 123 H Lactic Acid 3.7 H* Lactic Acid F/U @ 2Hr 4.6 H* Lactic Acid F/U @ 4Hr Calcium 9.0 Total Bilirubin 1.4 H AST 18 ALT 5 Alkaline Phosphatase 78 Troponin I High Sens 6.2 7.9 B-Natriuretic Peptide 122 H Total Protein 6.6 Albumin 2.8 L Lipase 6 L Urine Color Yellow Urine Appearance Hazy Urine pH 6.5 Ur Specific [place] >= 1.030 H Urine Protein Trace Urine Glucose (UA) Negative Urine Ketones Trace Urine Blood Negative Urine Nitrite Positive H Ur Leukocyte Esterase Negative Urine RBC 0-2 Urine WBC 0-5 Ur Squamous Epith Cells 0-2 Urine Bacteria 1+ Hyaline Casts 0-2 Influenza Type A (PCR) NEGATIVE Influenza Type B (PCR) NEGATIVE RSV RNA Qual (PCR) NEGATIVE SARS-CoV-2 RNA (RT-PCR) NEGATIVE 03/07/24 03/08/24 03/08/24 20:56 04:54 06:14 MCV 95.1 MCH 32.4 MCHC 34.1 RDW 13.9 Plt Count 137 L D MPV 9.3 L Immature Gran % (Auto) 0.3 Neut % (Auto) 66.6 Lymph % (Auto) 12.7 L [place] % (Auto) 19.7 H Eos % (Auto) 0.3 Baso % (Auto) 0.4 Lymph # (Auto) 1.0 L [place] # (Auto) 1.6 H Eos # (Auto) 0.0 Baso # (Auto) 0.0 Abs Immat Gran (auto) 0.02 Absolute Neuts (auto) 5.3 Absolute Nucleated RBC 0.000 Nucleated RBC % (auto) 0.0 Neutrophils % (Manual) Band Neutrophils % Lymphocytes % (Manual) Monocytes % (Manual) Abs Neuts (Manual) Lymphocytes # (Manual) Monocytes # (Manual) Platelet Estimate Plt Morphology Comment RBC Morphology Smear Tech's Comments Anion Gap Estim Creat Clear Calc 97.0 Estimated GFR > 60 POC Glucose 118 H Random Glucose 115 Lactic Acid Lactic Acid F/U @ 2Hr Lactic Acid F/U @ 4Hr 3.7 H* Calcium 8.4 D Total Bilirubin AST ALT Alkaline Phosphatase Troponin I High Sens B-Natriuretic Peptide Total Protein Albumin Lipase Urine Color Urine Appearance Urine pH Ur Specific [place] Urine Protein Urine Glucose (UA) Urine Ketones Urine Blood Urine Nitrite Ur Leukocyte Esterase Urine RBC Urine WBC Ur Squamous Epith Cells Urine Bacteria Hyaline Casts Influenza Type A (PCR) Influenza Type B (PCR) RSV RNA Qual (PCR) SARS-CoV-2 RNA (RT-PCR) Assessment and Plan (1) Enteritis: Status: Acute (2) Pneumonia: Status: Acute (3) Sepsis: Status: Acute (4) Symptomatic cholelithiasis: Status: Acute Plan 83-year-old male with a history of diabetes mellitus, hypertension, anemia, diabetic polyneuropathy, chronic venous stasis, htn admitted for further management of severe sepsis due to enteritis with symptomatic cholelithiasis and suspected evolving pneumonia #Severe sepsis due to enteritis with symptomatic cholelithiasis -On admission- Leukocytosis 21 with bandemia, febrile, initially hypotensive (resolved with IVF), lactic acidosis. No shock on admission -Received 3L IVF. Continue IVF -advance to clear liquid diet -RUQ U/S shows impacted gallstone. HIDA scan pending. Consider GI vs general surgery consult pending results -Antiemetics prn -IV zosyn (initiated 03/07) -Follow cbc, cultures #Acute hypotension -resolved on admission, r/t severe sepsis -IV albumin, continue gentle IVF #Acute lactic acidosis -3.6-->4.7-->3.7 -Continue IVF. BP/map stable #Suspected evolving pneumonia -pneumonitis on cxr (doubt edema), ?aspiration in setting of recurrent vomiting -zosyn -sputum culture, strep pneumo ag, legionella ag -cultures negative thus far #?Acute UTI -Nitrite + urine with 1+ bacteria. However, no pyuria -on zosyn as above. Follow cultures #Non insulin dependent type 2 diabetes -poc glucose, advance to clears (on d5/LR) -admelog ss #HTN -hold antihypertensives in setting of above dvt ppx- lovenox dnr/dni- discussed with patient and at bedside pt requires ongoing inpt stay due to severe sepsis requiring braod spectrum abx with ongoing investigation into etiology of severe sepsis with close monitoring of hemodynamics Quality Stroke Does the patient have a stroke diagnosis?: No VTE Prior VTE?: No VTE Risk Level:: Medical - moderate - high VTE Device Contraindication: Treatment Not Indicated VTE Drug Contraindication: N/A - Med Ordered
[2024-03-08 07:36] LABS: Anion Gap 13 (12-20); Carbon Dioxide 26 mmol/L (22-29); Chloride 107 mmol/L (96-108); Potassium 3.7 mmol/L (3.3-5.1); Sodium 142 mmol/L (135-145)
[2024-03-08 08:02] LABS: Band Neutrophils Percent 7 % (3-5); Lymphocytes Percent Manual 13 % (20-40); Monocytes Percent Manual 13 % (2-11); Neutrophils Absolute Manual 5.9 X10*3/uL (2.0-8.3); Neutrophils Percent Manual 67 % (45-73)
[2024-03-08 08:11] LABS: Platelet Estimate NORMAL (NORMAL); Platelet Morphology Comment NORMAL; RBC Morphology NORMAL
[2024-03-08 08:19] LABS: SLIDE REVIEW VERIFIED
--- NOTE | 2024-03-08 09:04 | MHC.CM.PN ---
CM met with Patient at bedside and assisted him with the completion of a HCP; he named his /Filomena Klein as his Agent. CM addressed IMM with Patient and the original was given to him and a copy has been placed on the chart. Patient may benefit from a PT Eval to assist with disposition/STR appears likely; CM has initiated and will follow for dc planning. Patient lives in a house with his and adult Son and he uses a walker to assist with mobility.PCP is Dr. Krystin Balbuena.
[2024-03-08] MEDS: 0.9 % Sodium Chloride Flush 3 ML SYRINGE IVFLUSH ×3 (09:55→19:36)
[2024-03-08 10:03] LABS: Glucose, Whole Blood 79 mg/dL (60-115)
[2024-03-08 12:00] VITALS: BP 122/57; PULSE 65; RESP 18; TEMP 36.7; O2SAT 96
--- NOTE | 2024-03-08 14:31 | PHA.MEDREC ---
Addendum entered by Kaylyn Sanchez RPh 03/08/24 14:46: Med rec was reviewed by [facility]. Original Note: Pharmacy Consult ? Medication Reconciliation Pharmacy has completed the medication reconciliation. Spoke with patient's Filomena at bedside. She reports he was taken off of aspirin 3 weeks ago. He has not taken the iron in a week because it was causing him issues with his colonoscopy. He reduced the frequency of his vitamin c and iron because it was giving him issues with his stool. He does get some of his prescriptions mail order, she confirmed he started the folic acid. She gets the vitamin C, B12, and iron from [employer], she confirmed the B12 is sublingual tabs. He is not taking losartan. All of his meds were last taken on Saturday except the iron.
--- NOTE | 2024-03-08 15:07 | P.CONGS_ITS ---
History of Present Illness Consult details Consult date: 03/08/24 Narrative: 83-year-old male with multiple medical problems including morbid obesity, anemia, diabetes with peripheral neuropathy, admitted last night because of vomiting and nausea. The patient was says that this started about 2 days ago. He said that he had been feeling ?lousy? because of this. He describes some right-sided abdominal pain as well at that time He ruled in for sepsis last night so he was admitted. He has been IV antibiotics He currently feels much better although he says he still feels ?weak?. He currently denies abdominal pain. His says that he also has had this productive cough and seems to be have some reflux as well. He had been hypotensive on admission but has improved significantly. His says that he spends most of the time on the recliner as he is unable to stand up and walk anymore because of neuropathy. He seems to have a poor level of function at home. Review of Systems 2 Constitutional: Constitutional: Reports chills and Reports fever(s) Cardiovascular: Cardiovascular: Denies chest pain and Reports dyspnea on exertion Respiratory: Respiratory: Reports cough and Reports dyspnea on exertion Gastrointestinal: Gastrointestinal: Reports fecal incontinence Genitourinary: Genitourinary: Reports urinary incontinence Musculoskeletal: Musculoskeletal: Reports abnormal gait, Reports arthralgias and Reports stiffness Neurologic: Reports abnormal gait PMF Past Medical History Medical History (Updated 03/08/24 @ 15:11 by Zak Cooney MD) Gallstones Incontinence COPD (chronic obstructive pulmonary disease) Normocytic normochromic anemia Peripheral neuropathy Diabetes 1.5, 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 Brother No problems noted. Brother No problems noted. Sister No problems noted. Son No problems noted. Son No problems noted. Son No problems noted. Son No problems noted. Daughter No problems noted. Daughter No problems noted. Daughter No problems noted. Surgical History Surgical History History of knee surgery History of colonoscopy Social History Social History (Updated 03/08/24 @ 02:32 by Mary Beth Eckert RN) Household Members: Spouse and Other Household Members Other:: and grandson Housing: House Are you a primary home care physical therapist to a significant other at home: No Do you presently have visiting nurse or other home services: No Patient Tobacco Use Status: Former Tobacco user Tobacco use type: Cigarette Years Smoked: 15 Smoked in Last 30 Days: No e-Cigarette/Vaping Use: Never Used Patient Interested in Nicotine Replacement: No Patient Given Instructions on How to Stop Smoking: No Second Hand Smoke Exposure: No Use of substances other than those prescribed or required for medical reasons: No Currently Displaying Signs/Symptoms of Drug Intoxication Withdrawal: No Any prior treatment program specific to substance use: No Have you been hit, kicked, punched, or otherwise hurt by someone within the past year? If so, by whom?: No Do you feel safe in your current relationship?: Yes Is there a partner from a previous relationship who is making you feel unsafe now?: No Are you made to feel afraid or neglected: No Advance Directives: Yes Advance Directives on File: Yes Advance Directives Date on File: 03/05/22 Do you have thoughts of harming others: None Do you have a plan to hurt others: No Plan Do you have the means to hurt others: No Recently lost weight without trying: No How much weight loss: Not applicable Eating poorly because of decreased appetite: No Nutrition screen score: 0 Nutrition Risks: No Nutritional Risk Poor oral hygiene: No service: Yes Current occupational status: retired Current occupational exposures/hazards: No Cognitive needs: No Hearing needs: No Vision needs: No Meds Allergies Allergy/AdvReac Type Severity Reaction Status Date / Time No Known Allergies Allergy Verified 03/07/24 15:28 [No Known Allergies*] Active Medications: Current Medications Acetaminophen (Acetaminophen 325 Mg Tablet) 650 mg PO Q6H PRN PRN Reason: Pain, Mild (Pain Scale 1-3), fever or headache Calcium Carbonate (Calcium Carbonate 750 Mg Tab.Chew) 750 mg PO Q4H PRN PRN Reason: Heartburn Enoxaparin Sodium (Enoxaparin Sodium 40 Mg/0.4 Ml Syringe) 40 mg SUBCUT Q24H [facility] Last Admin: 03/07/24 20:27 Dose: 40 mg Glucose (Glucose Gel 15 Gm Gel..Gram.) 15 gm PO Q15M PRN; Protocol PRN Reason: per Hypoglycemia Standing Ord. Piperacillin Sod/Tazobactam (Sod 4.5 gm/ Sodium Chloride) 100 mls @ 200 mls/hr IV Q6H [facility] Last Infusion: 03/08/24 10:20 Dose: Infused Dextrose/Lactated Ringer's (D5lr) 1,000 mls @ 75 mls/hr IVCONT .[id number] [facility] Last Admin: 03/08/24 09:55 Dose: Not Given Dextrose (D10) 250 mls @ 750 mls/hr IV Q15M PRN; Protocol PRN Reason: per Hypoglycemia Standing Ord. Insulin Human Lispro (Insulin Lispro 100 Unit/Ml 3 Ml Vial) 0 unit SUBCUT Q6H [facility]; Protocol Last Admin: 03/08/24 10:08 Dose: Not Given Magnesium Hydroxide (Milk Of Magnesia 30 Ml Oral.Susp) 30 ml PO DAILY PRN PRN Reason: Constipation Melatonin (Melatonin 3 Mg Tablet) 6 mg PO BEDTIME PRN PRN Reason: Insomnia Ondansetron HCl (Ondansetron Hcl 4 Mg/2 Ml Vial) 4 mg IVPUSH Q6H PRN PRN Reason: Nausea and Vomiting Sodium Chloride (0.9 % Sodium Chloride Flush 3 Ml Syringe) 3 ml IVFLUSH QSHIFT [facility] Last Admin: 03/08/24 09:55 Dose: 3 ml Home Medications ?Medication ?Instructions ?Recorded ?Confirmed ?Last Taken ?Type cholecalciferol (vitamin D3) 25 25 mcg PO QAM 01/23/24 03/08/24 03/06/24 History mcg (1,000 unit) capsule escitalopram oxalate 20 mg tablet 20 mg PO QAM 01/23/24 03/08/24 03/06/24 History folic acid 1 mg tablet 1 mg PO QAM 01/23/24 03/08/24 03/06/24 History metoprolol succinate 25 mg 25 mg PO QAM 01/23/24 03/08/24 03/06/24 History tablet,extended release 24 hr ascorbic acid (vitamin C) 500 mg 500 mg PO DAILY 03/08/24 03/08/24 03/06/24 History capsule,extended release (Vitamin C) ferrous sulfate 325 mg (65 mg 325 mg PO DAILY 03/08/24 03/08/24 03/01/24 History iron) tablet Physical Exam 2 Vital Signs: Vital Signs: Last Vital Signs Temp 98.0 F 03/08/24 12:00 Pulse 65 03/08/24 12:00 Resp 18 03/08/24 12:00 BP 122/57 L 03/08/24 12:00 Pulse Ox 96 03/08/24 12:00 O2 Del Method Room Air 03/08/24 12:00 BMI result Body Mass Index 32.1 Results Labs 03/08/24 06:14 03/08/24 06:14 Labs: Abnormal lab results 03/07/24 03/07/24 03/07/24 Range/Units 15:44 16:31 18:17 WBC 21.3 H (4.8-10.8) X10*3/uL RBC 4.21 L (4.60-5.80) X10*6/uL Hgb 13.5 L (14.0-18.0) g/dl Hct 39.4 L (42.0-52.0) % Plt Count (160-400) X10*3/uL MPV 8.9 L (9.4-12.4) fL Band Neutrophils % 23 H (3-5) % Lymphocytes % (Manual) 2 L (20-40) % Monocytes % (Manual) (2-11) % Abs Neuts (Manual) 19.0 H (2.0-8.3) X10*3/uL Lymphocytes # (Manual) 0.4 L (1.2-4.9) X10*3/uL Monocytes # (Manual) 1.9 H (0.1-1.2) X10*3/uL POC Glucose (60-115) mg/dL Random Glucose 123 H (60-115) mg/dL Lactic Acid 3.7 H* (0.5-2.0) mmol/L Lactic Acid F/U @ 2Hr 4.6 H* (0.5-2.0) mmol/L Lactic Acid F/U @ 4Hr (0.5-2.0) mmol/L Total Bilirubin 1.4 H (0.0-1.0) mg/dL B-Natriuretic Peptide 122 H (<100) pg/mL Albumin 2.8 L (3.5-5.0) g/dL Lipase 6 L (8-78) U/L Ur Specific [place] >= 1.030 H (1.005-1.025) Urine Nitrite Positive H (Negative) 03/07/24 03/08/24 03/08/24 Range/Units 20:56 04:54 06:14 WBC (4.8-10.8) X10*3/uL RBC 3.27 L D (4.60-5.80) X10*6/uL Hgb 10.6 L D (14.0-18.0) g/dl Hct 31.1 L D (42.0-52.0) % Plt Count 137 L D (160-400) X10*3/uL MPV 9.3 L (9.4-12.4) fL Band Neutrophils % 7 H (3-5) % Lymphocytes % (Manual) 13 L (20-40) % Monocytes % (Manual) 13 H (2-11) % Abs Neuts (Manual) (2.0-8.3) X10*3/uL Lymphocytes # (Manual) 1.0 L (1.2-4.9) X10*3/uL Monocytes # (Manual) (0.1-1.2) X10*3/uL POC Glucose 118 H (60-115) mg/dL Random Glucose (60-115) mg/dL Lactic Acid (0.5-2.0) mmol/L Lactic Acid F/U @ 2Hr (0.5-2.0) mmol/L Lactic Acid F/U @ 4Hr 3.7 H* (0.5-2.0) mmol/L Total Bilirubin (0.0-1.0) mg/dL B-Natriuretic Peptide (<100) pg/mL Albumin (3.5-5.0) g/dL Lipase (8-78) U/L Ur Specific [place] (1.005-1.025) Urine Nitrite (Negative) Short CBC 03/07/24 03/08/24 Range/Units 15:44 06:14 WBC 21.3 H 8.0 (4.8-10.8) X10*3/uL Hgb 13.5 L 10.6 L D (14.0-18.0) g/dl Hct 39.4 L 31.1 L D (42.0-52.0) % Plt Count 251 137 L D (160-400) X10*3/uL BMP 03/07/24 03/08/24 15:44 06:14 Sodium 141 142 Potassium 4.7 3.7 D Chloride 105 107 Carbon Dioxide 27 26 BUN 12 12 Creatinine 0.87 0.73 Calcium 9.0 8.4 D Liver Function 03/07/24 Range/Units 15:44 Total Bilirubin 1.4 H (0.0-1.0) mg/dL AST 18 (5-37) U/L ALT 5 (0-40) U/L Alkaline Phosphatase 78 (39-117) U/L Albumin 2.8 L (3.5-5.0) g/dL Urine 03/07/24 Range/Units 16:31 Urine Color Yellow Urine Appearance Hazy Urine pH 6.5 (5.0-9.0) Ur Specific [place] >= 1.030 H (1.005-1.025) Urine Protein Trace (Neg-Trace) mg/dL Urine Glucose (UA) Negative (Negative) mg/dL All other labs normal. Assessment and Plan (1) Gallstones: Status: Acute He was admitted last night because of multiple episodes of vomiting at home, some right-sided home of pain along with weakness. He ruled in for sepsis parameters . He has imaging studies including CT scan showed gallstones along with significant thickening a segment of small bowel in the mid abdomen consistent with enteritis. There was some proximal dilation as well. I have reviewed this and this does not show any pericholecystic fluid or obvious gallbladder wall thickening. Current exam does not show any significant tenderness at all. He does not have any Young's sign. He appears very comfortable. He seems to have improved significantly since yesterday. He is stable and has not been hypotensive anymore. He appears comfortable. Based on clinical findings, I will hold off on proceeding with cholecystectomy at this time especially in view of his overall frailty and poor baseline level of function. However, if he does continue to have problems that may be related to his gallstones, we may proceed with this despite his significant perioperative risks. The was also at bedside and she seems to have a good understanding of the plan as above. We will follow along while he is in the hospital (2) Enteritis: Status: Acute His CAT scan also shows significant enteritis in as loop of small bowel in the mid abdomen along with proximal dilatation. He may be put on some bowel rest for now although his symptoms seemed to have improved significantly. He has no significant tenderness at this time. Procedures Date of Service Date of Service: 03/10/24
[2024-03-08 15:08] VITALS: BP 119/56; PULSE 66; RESP 20; TEMP 37.1; O2SAT 95
[2024-03-08 16:11] LABS: Glucose, Whole Blood 77 mg/dL (60-115)
[2024-03-08] MEDS: Enoxaparin Sodium 40 MG/0.4 ML SYRINGE SUBCUT (19:35)
[2024-03-08 20:00] VITALS: BP 113/48; PULSE 68; RESP 18; TEMP 36.4; O2SAT 99
[2024-03-08 20:23] LABS: Glucose, Whole Blood 76 mg/dL (60-115)
[2024-03-09] VITALS (7 sets, daily range): BP systolic 124–147; BP diastolic 50–65; PULSE 63–83; RESP 18–20; TEMP 36.2–37.2; O2SAT 92–96
[2024-03-09 00:14] LABS: Glucose, Whole Blood 86 mg/dL (60-115)
[2024-03-09 03:59] LABS: Glucose, Whole Blood 95 mg/dL (60-115)
[2024-03-09] MEDS: Piperacillin Sodium/Tazobactam 4.5 GM in 0.9 % Sodium Chloride 100 ML IV ×4 (04:27→23:01)
--- NOTE | 2024-03-09 09:03 | PM.PNGS ---
Subjective Subjective Date of Service: 03/09/24 Interval history: Patient not much improved with continued nausea, abdominal bloating. He has not very hungry this morning. Physical Exam Vital Signs: Vital Signs: Last Vital Signs Temp 97.2 F 03/09/24 08:00 Pulse 80 03/09/24 08:00 Resp 18 03/09/24 08:00 BP 135/63 03/09/24 08:00 Pulse Ox 96 03/09/24 08:00 O2 Del Method Room Air 03/09/24 08:00 BMI result Body Mass Index 32.1 Const: General: no acute distress Nutritional Appearance: well nourished Orientation/consciousness: patient oriented x3 Resp: Effort & Inspection: normal respiratory effort, no audible wheezes, no cough and no respiratory distress GI: Inspection: Yes distended Palpation (GI): Soft to palpation and Tenderness to palpation present (GI) (Diffusely tender to deep palpation without peritoneal signs) Percussion: Yes tympanic to percussion Rectal Exam - Male: Yes deferred Skin: General skin exam: no rashes or lesions noted Neuro: General: patient oriented x3 Objective Data Active Medications Acetaminophen (Acetaminophen 325 Mg Tablet) 650 mg PO Q6H PRN PRN Reason: Pain, Mild (Pain Scale 1-3), fever or headache Calcium Carbonate (Calcium Carbonate 750 Mg Tab.Chew) 750 mg PO Q4H PRN PRN Reason: Heartburn Enoxaparin Sodium (Enoxaparin Sodium 40 Mg/0.4 Ml Syringe) 40 mg SUBCUT Q24H [facility] Last Admin: 03/08/24 19:35 Dose: 40 mg Documented By: CECE Glucose (Glucose Gel 15 Gm Gel..Gram.) 15 gm PO Q15M PRN; Protocol PRN Reason: per Hypoglycemia Standing Ord. Piperacillin Sod/Tazobactam (Sod 4.5 gm/ Sodium Chloride) 100 mls @ 200 mls/hr IV Q6H [facility] Last Infusion: 03/09/24 04:57 Dose: Infused Documented By: CECE Dextrose/Lactated Ringer's (D5lr) 1,000 mls @ 75 mls/hr IVCONT .[id number] [facility] Last Admin: 03/08/24 23:04 Dose: Not Given Documented By: CECE Non-Admin Reason: Physician Held Med Dextrose (D10) 250 mls @ 750 mls/hr IV Q15M PRN; Protocol PRN Reason: per Hypoglycemia Standing Ord. Insulin Human Lispro (Insulin Lispro 100 Unit/Ml 3 Ml Vial) 0 unit SUBCUT Q6H [facility]; Protocol Last Admin: 03/09/24 04:22 Dose: Not Given Documented By: CECE Non-Admin Reason: Order parameters not met Magnesium Hydroxide (Milk Of Magnesia 30 Ml Oral.Susp) 30 ml PO DAILY PRN PRN Reason: Constipation Melatonin (Melatonin 3 Mg Tablet) 6 mg PO BEDTIME PRN PRN Reason: Insomnia Ondansetron HCl (Ondansetron Hcl 4 Mg/2 Ml Vial) 4 mg IVPUSH Q6H PRN PRN Reason: Nausea and Vomiting Sodium Chloride (0.9 % Sodium Chloride Flush 3 Ml Syringe) 3 ml IVFLUSH QSHIFT [facility] Last Admin: 03/08/24 19:36 Dose: 3 ml Documented By: CECE Labs 03/08/24 06:14 03/08/24 06:14 Labs: Laboratory Results - last 24 hr 03/08/24 03/08/24 03/08/24 10:00 16:08 20:13 POC Glucose 79 77 76 03/09/24 03/09/24 00:03 03:55 POC Glucose 86 95 Microbiology Microbiology Results: Microbiology 03/07/24 15:51 Blood Culture - Preliminary Blood - Venous No growth after 24 hours. 03/07/24 15:44 Blood Culture - Preliminary Blood - Venous No growth after 24 hours. 03/07/24 16:47 Urine Culture - Preliminary Urine clean catch - Clean Catch Midstream Culture too young to evaluate. Procedures Date of Service Date of Service: 03/09/24 Progress Note: A&P Assessment and plan (1) Gallstones: Status: Acute (2) Enteritis: Status: Acute Plan Patient with continued abdominal pain and distention, tympanitic to percussion. CT with multiple gallstones and an equivocal HIDA scan. CT also shows distended loops of small bowel with evidence of thickening of the terminal ileum and right colon. Of note, patient underwent Cologuard test on 02/29/2024 which was positive therefore would recommend GI consultation to evaluate for colorectal cancer. Time Spent With Patient Time: Total time managing care of this patient today ____ minutes. Quality Stroke Does the patient have a stroke diagnosis?: No VTE Prior VTE?: No VTE Risk Level:: Medical - moderate - high VTE Device Contraindication: Treatment Not Indicated VTE Drug Contraindication: N/A - Med Ordered
[2024-03-09] MEDS: 0.9 % Sodium Chloride Flush 3 ML SYRINGE IVFLUSH ×3 (09:32→23:12)
[2024-03-09] MEDS: ondansetron HCL 4 MG/2 ML VIAL IVPUSH (09:36)
[2024-03-09 09:42] LABS: Glucose, Whole Blood 76 mg/dL (60-115)
--- NOTE | 2024-03-09 10:13 | P.PNIM_ITS ---
Subjective Subjective Date of Service: 03/09/24 Interval History: No acute issues overnight. Appetite remains poor. Review of Systems Denies chest pain Denies shortness of breath Admits to nausea but denies vomiting or diarrhea Denies fever chills Physical Exam 2 Vital Signs: Vital Signs: Last Vital Signs Temp 97.2 F 03/09/24 08:00 Pulse 80 03/09/24 08:00 Resp 18 03/09/24 08:00 BP 135/63 03/09/24 08:00 Pulse Ox 96 03/09/24 08:00 O2 Del Method Room Air 03/09/24 08:00 BMI result Body Mass Index 32.1 Const: Other: Awake alert no acute distress Resp: Other: Clear to auscultation bilaterally no rales rhonchi or wheezes GI: Other: Soft nontender nondistended normoactive bowel sounds Extrem: Other: No edema bilaterally Objective Data Active Medications Acetaminophen (Acetaminophen 325 Mg Tablet) 650 mg PO Q6H PRN PRN Reason: Pain, Mild (Pain Scale 1-3), fever or headache Calcium Carbonate (Calcium Carbonate 750 Mg Tab.Chew) 750 mg PO Q4H PRN PRN Reason: Heartburn Enoxaparin Sodium (Enoxaparin Sodium 40 Mg/0.4 Ml Syringe) 40 mg SUBCUT Q24H [facility] Last Admin: 03/08/24 19:35 Dose: 40 mg Documented By: CECE Glucose (Glucose Gel 15 Gm Gel..Gram.) 15 gm PO Q15M PRN; Protocol PRN Reason: per Hypoglycemia Standing Ord. Piperacillin Sod/Tazobactam (Sod 4.5 gm/ Sodium Chloride) 100 mls @ 200 mls/hr IV Q6H [facility] Last Admin: 03/09/24 09:31 Dose: 200 mls/hr Documented By: KAYLIN Dextrose/Lactated Ringer's ([id number]) 1,000 mls @ 75 mls/hr IVCONT .[id number] [facility] Last Admin: 03/08/24 23:04 Dose: Not Given Documented By: CECE Non-Admin Reason: Physician Held Med Dextrose (D10) 250 mls @ 750 mls/hr IV Q15M PRN; Protocol PRN Reason: per Hypoglycemia Standing Ord. Insulin Human Lispro (Insulin Lispro 100 Unit/Ml 3 Ml Vial) 0 unit SUBCUT Q6H [facility]; Protocol Last Admin: 03/09/24 09:32 Dose: Not Given Documented By: KAYLIN Non-Admin Reason: poc= 76 Magnesium Hydroxide (Milk Of Magnesia 30 Ml Oral.Susp) 30 ml PO DAILY PRN PRN Reason: Constipation Melatonin (Melatonin 3 Mg Tablet) 6 mg PO BEDTIME PRN PRN Reason: Insomnia Ondansetron HCl (Ondansetron Hcl 4 Mg/2 Ml Vial) 4 mg IVPUSH Q6H PRN PRN Reason: Nausea and Vomiting Last Admin: 03/09/24 09:36 Dose: 4 mg Documented By: KAYLIN Sodium Chloride (0.9 % Sodium Chloride Flush 3 Ml Syringe) 3 ml IVFLUSH QSHIFT [facility] Last Admin: 03/09/24 09:32 Dose: 3 ml Documented By: KAYLIN Labs 03/08/24 06:14 03/08/24 06:14 Labs: Laboratory Results - last 24 hr 03/08/24 03/08/24 03/09/24 16:08 20:13 00:03 POC Glucose 77 76 86 03/09/24 03/09/24 03:55 09:30 POC Glucose 95 76 Microbiology Microbiology Results: Microbiology 03/07/24 15:51 Blood Culture - Preliminary Blood - Venous No growth after 24 hours. 03/07/24 15:44 Blood Culture - Preliminary Blood - Venous No growth after 24 hours. 03/07/24 16:47 Urine Culture - Preliminary Urine clean catch - Clean Catch Midstream Culture too young to evaluate. Assessment and Plan (1) Symptomatic cholelithiasis: Status: Acute (2) Enteritis: Status: Acute Plan 83-year-old male with a history of diabetes mellitus, hypertension, anemia, diabetic polyneuropathy, chronic venous stasis, htn admitted for further management of severe sepsis due to enteritis with symptomatic cholelithiasis and suspected evolving pneumonia 1.Severe sepsis due to enteritis with symptomatic cholelithiasis.. Sepsis resolved -clear liquid diet. .. Advance as tolerated -Zosyn (3) -cultures negative thus far -discuss with surgery; will consult GI in a.m. 2.Acute hypotension -resolved on admission, r/t severe sepsis -normotensive as present; continued to hold outpatient therapies 3.Suspected evolving pneumonia -pneumonitis on cxr , ?aspiration in setting of recurrent vomiting -zosyn(3) -cultures negative thus far 4.Acute UTI -active sediment. .. Culture pending -continue Zosyn 5.Non insulin dependent type 2 diabetes -acceptable control on current therapies -lispro correctional scale Lovenox DNR DNI Requires ongoing hospitalization for IV antibiotics to treat cholelithiasis and likely UTI. Quality Stroke Does the patient have a stroke diagnosis?: No VTE Prior VTE?: No VTE Risk Level:: Medical - moderate - high VTE Device Contraindication: Treatment Not Indicated VTE Drug Contraindication: N/A - Med Ordered
[2024-03-09 16:20] LABS: Glucose, Whole Blood 80 mg/dL (60-115)
[2024-03-09 20:48] LABS: Glucose, Whole Blood 92 mg/dL (60-115)
[2024-03-09] MEDS: Enoxaparin Sodium 40 MG/0.4 ML SYRINGE SUBCUT (20:50)
[2024-03-10 03:55] VITALS: BP 133/56; PULSE 65; RESP 20; TEMP 36.9; O2SAT 93
[2024-03-10 04:07] LABS: Glucose, Whole Blood 81 mg/dL (60-115)
[2024-03-10] MEDS: Piperacillin Sodium/Tazobactam 4.5 GM in 0.9 % Sodium Chloride 100 ML IV ×3 (05:16→16:15)
[2024-03-10 08:00] VITALS: BP 143/68; PULSE 80; RESP 18; TEMP 36.4; O2SAT 94
[2024-03-10] MEDS: ondansetron HCL 4 MG/2 ML VIAL IVPUSH (08:41)
[2024-03-10] MEDS: 0.9 % Sodium Chloride Flush 3 ML SYRINGE IVFLUSH ×3 (08:45→20:04)
[2024-03-10 09:56] LABS: Glucose, Whole Blood 80 mg/dL (60-115)
--- NOTE | 2024-03-10 10:05 | PM.PNGS ---
Subjective Subjective Date of Service: 03/10/24 Interval history: States that he has a problem with swallowing He says he spits out liquids fine he is follows Denies abdominal pain Physical Exam Vital Signs: Vital Signs: Last Vital Signs Temp 97.6 F 03/10/24 08:00 Pulse 80 03/10/24 08:00 Resp 18 03/10/24 08:00 BP 143/68 H 03/10/24 08:00 Pulse Ox 94 03/10/24 08:00 O2 Del Method Room Air 03/10/24 08:00 BMI result Body Mass Index 32.1 Const: Other: Frail looking General: comfortable and no acute distress Resp: Effort & Inspection: normal respiratory effort Cardio: Rate: regular rate GI: Other: No tenderness, no Young's sign Palpation (GI): Soft to palpation, not firm, nontender and no guarding Objective Data Active Medications Acetaminophen (Acetaminophen 325 Mg Tablet) 650 mg PO Q6H PRN PRN Reason: Pain, Mild (Pain Scale 1-3), fever or headache Calcium Carbonate (Calcium Carbonate 750 Mg Tab.Chew) 750 mg PO Q4H PRN PRN Reason: Heartburn Enoxaparin Sodium (Enoxaparin Sodium 40 Mg/0.4 Ml Syringe) 40 mg SUBCUT Q24H [facility] Last Admin: 03/09/24 20:50 Dose: 40 mg Documented By: NENA Glucose (Glucose Gel 15 Gm Gel..Gram.) 15 gm PO Q15M PRN; Protocol PRN Reason: per Hypoglycemia Standing Ord. Piperacillin Sod/Tazobactam (Sod 4.5 gm/ Sodium Chloride) 100 mls @ 200 mls/hr IV Q6H [facility] Last Infusion: 03/10/24 05:53 Dose: Infused Documented By: NENA Dextrose (D10) 250 mls @ 750 mls/hr IV Q15M PRN; Protocol PRN Reason: per Hypoglycemia Standing Ord. Insulin Human Lispro (Insulin Lispro 100 Unit/Ml 3 Ml Vial) 0 unit SUBCUT Q6H [facility]; Protocol Last Admin: 03/10/24 04:16 Dose: Not Given Documented By: NENA Non-Admin Reason: No Insulin Coverage Magnesium Hydroxide (Milk Of Magnesia 30 Ml Oral.Susp) 30 ml PO DAILY PRN PRN Reason: Constipation Melatonin (Melatonin 3 Mg Tablet) 6 mg PO BEDTIME PRN PRN Reason: Insomnia Ondansetron HCl (Ondansetron Hcl 4 Mg/2 Ml Vial) 4 mg IVPUSH Q6H PRN PRN Reason: Nausea and Vomiting Last Admin: 03/10/24 08:41 Dose: 4 mg Documented By: ABISAI Sodium Chloride (0.9 % Sodium Chloride Flush 3 Ml Syringe) [facility] Last Admin: 03/10/24 08:45 Dose: 3 ml Documented By: ABISAI Labs 03/08/24 06:14 03/08/24 06:14 Labs: Laboratory Results - last 24 hr 03/08/24 03/09/24 03/09/24 06:14 16:12 20:40 Smear Path Review SEE NOTE POC Glucose 80 92 03/10/24 03/10/24 04:01 09:52 Smear Path Review POC Glucose 81 80 Microbiology Microbiology Results: Microbiology 03/07/24 15:51 Blood Culture - Preliminary Blood - Venous No growth after 48 hours. 03/07/24 15:44 Blood Culture - Preliminary Blood - Venous No growth after 48 hours. 03/07/24 16:47 Urine Culture - Final Urine clean catch - Clean Catch Midstream Procedures Date of Service Date of Service: 03/10/24 Progress Note: A&P Assessment and plan (1) Gallstones: Status: Acute Assessment and Plan: Clinically does not seem to be acute cholecystitis No Young's sign, no significant tenderness Note of some thickening of small bowel segment consistent with enteritis Previous Cologuard test ordered by GI positive Uncertain as to whether patient will have colonoscopy or further intervention for this in view of overall health and clinical condition We will follow Time Spent With Patient Time: Total time managing care of this patient today ____ minutes. Quality Stroke Does the patient have a stroke diagnosis?: No VTE Prior VTE?: No VTE Risk Level:: Medical - moderate - high VTE Device Contraindication: Treatment Not Indicated VTE Drug Contraindication: N/A - Med Ordered
--- NOTE | 2024-03-10 11:20 | HO.PM.IMPN ---
Subjective Subjective Date of Service: 03/10/24 Interval History: Still anorexic; no desire to eat. Does not complain of pain Review of Systems Denies chest pain Denies shortness of breath Admits to nausea but denies vomiting or diarrhea Denies fever chills Physical Exam Vital Signs: Vital Signs: Last Vital Signs Temp 97.6 F 03/10/24 08:00 Pulse 80 03/10/24 08:00 Resp 18 03/10/24 08:00 BP 143/68 H 03/10/24 08:00 Pulse Ox 94 03/10/24 08:00 O2 Del Method Room Air 03/10/24 08:00 BMI result Body Mass Index 32.1 Const: Other: Awake alert no acute distress Resp: Other: Clear to auscultation bilaterally no rales rhonchi or wheezes GI: Other: Soft nontender nondistended normoactive bowel sounds Extrem: Other: No edema bilaterally Objective Data Active Medications Acetaminophen (Acetaminophen 325 Mg Tablet) 650 mg PO Q6H PRN PRN Reason: Pain, Mild (Pain Scale 1-3), fever or headache Calcium Carbonate (Calcium Carbonate 750 Mg Tab.Chew) 750 mg PO Q4H PRN PRN Reason: Heartburn Enoxaparin Sodium (Enoxaparin Sodium 40 Mg/0.4 Ml Syringe) [address] [facility] Last Admin: 03/09/24 20:50 Dose: 40 mg Documented By: NENA Glucose (Glucose Gel 15 Gm Gel..Gram.) 15 gm PO Q15M PRN; Protocol PRN Reason: per Hypoglycemia Standing Ord. Piperacillin Sod/Tazobactam (Sod 4.5 gm/ Sodium Chloride) 100 mls @ 200 mls/hr IV Q6H [facility] Last Infusion: 03/10/24 05:53 Dose: Infused Documented By: NENA Dextrose (D10) 250 mls @ 750 mls/hr IV Q15M PRN; Protocol PRN Reason: per Hypoglycemia Standing Ord. Insulin Human Lispro (Insulin Lispro 100 Unit/Ml 3 Ml Vial) [address] [facility]; Protocol Last Admin: 03/10/24 04:16 Dose: Not Given Documented By: NENA Non-Admin Reason: No Insulin Coverage Magnesium Hydroxide (Milk Of Magnesia 30 Ml Oral.Susp) 30 ml PO DAILY PRN PRN Reason: Constipation Melatonin (Melatonin 3 Mg Tablet) 6 mg PO BEDTIME PRN PRN Reason: Insomnia Ondansetron HCl (Ondansetron Hcl 4 Mg/2 Ml Vial) 4 mg IVPUSH Q6H PRN PRN Reason: Nausea and Vomiting Last Admin: 03/10/24 08:41 Dose: 4 mg Documented By: ABISAI Sodium Chloride (0.9 % Sodium Chloride Flush 3 Ml Syringe) [address] [facility] Last Admin: 03/10/24 08:45 Dose: 3 ml Documented By: ABISAI Labs 03/08/24 06:14 03/08/24 06:14 Labs: Laboratory Results - last 24 hr 03/08/24 03/09/24 03/09/24 06:14 16:12 20:40 Smear Path Review SEE NOTE POC Glucose 80 92 03/10/24 03/10/24 04:01 09:52 Smear Path Review POC Glucose 81 80 Microbiology Microbiology Results: Microbiology 03/07/24 15:51 Blood Culture - Preliminary Blood - Venous No growth after 48 hours. 03/07/24 15:44 Blood Culture - Preliminary Blood - Venous No growth after 48 hours. 03/07/24 16:47 Urine Culture - Final Urine clean catch - Clean Catch Midstream Assessment and Plan (1) Symptomatic cholelithiasis: Status: Acute (2) Enteritis: Status: Acute Plan 83-year-old male with a history of diabetes mellitus, hypertension, anemia, diabetic polyneuropathy, chronic venous stasis, htn admitted for further management of severe sepsis due to enteritis with symptomatic cholelithiasis and suspected evolving pneumonia 1.Severe sepsis due to enteritis with symptomatic cholelithiasis.. Sepsis resolved -clear liquid diet. .. Advance as tolerated -Zosyn (4) -cultures negative thus far -discuss with surgery;consult GI .... Doubt candidate for intervention but will await GI input 2.Acute hypotension -resolved on admission, r/t severe sepsis -normotensive as present; continued to hold outpatient therapies 3.Suspected evolving pneumonia -pneumonitis on cxr , ?aspiration in setting of recurrent vomiting -zosyn(4) -cultures negative thus far 4.Acute UTI -active sediment. .. Culture pending -continue Zosyn 5.Non insulin dependent type 2 diabetes -acceptable control on current therapies -lispro correctional scale Lovenox DNR DNI Requires ongoing hospitalization for IV antibiotics to treat cholelithiasis and likely UTI. Quality Stroke Does the patient have a stroke diagnosis?: No VTE Prior VTE?: No VTE Risk Level:: Medical - moderate - high VTE Device Contraindication: Treatment Not Indicated VTE Drug Contraindication: N/A - Med Ordered
[2024-03-10 11:43] VITALS: BP 140/54; PULSE 70; RESP 18; TEMP 36.7; O2SAT 94
[2024-03-10 15:41] VITALS: BP 136/54; PULSE 68; RESP 18; TEMP 36.3; O2SAT 94
[2024-03-10 16:02] LABS: Glucose, Whole Blood 69 mg/dL (60-115)
[2024-03-10] MEDS: Glucose Gel 15 GM GEL..GRAM. PO (16:15)
--- NOTE | 2024-03-10 16:42 | CONS_ITS ---
DATE OF SERVICE: 03/10/2024 REFERRING PHYSICIAN: Dr. Muñoz REASON FOR CONSULTATION: Enteritis. HISTORY OF PRESENT ILLNESS: The patient is an 83-year-old man, who was admitted to the hospital after presenting to the emergency room on March 07 with complaints of nausea with recurrent vomiting. This developed the day before admission and there was no history of hematemesis. He denies fevers, chills, and blood in the stool, although he has had some changes with dark stools since he has been started on iron. He was evaluated in the emergency department with laboratory studies showing a hematocrit of 31.1, down from 39 with a white count that was elevated at 21. Chemistries showed a slight elevation of his total bilirubin at 1.4 with normal transaminases and alkaline phosphatase. Lipase was also normal. CT scanning in the emergency department is reviewed. This is interpreted as showing enteritis. He has been treated with IV fluids, antiemetics, and is currently on a clear liquid diet. Ultrasound imaging was done after his CT was interpreted also as showing impacted gallstones. He has been seen in consultation by General Surgery and also had a HIDA scan, which was nondiagnostic. He previously underwent upper endoscopy in January 2024 because of iron-deficiency anemia, which showed gastritis and mild duodenitis. H pylori testing was negative. His last colonoscopy in September 2009 showed a tubular adenoma. A recent Cologuard test was positive. PAST MEDICAL HISTORY: 1. Anemia with B12 deficiency. 2. Hypertension. 3. COPD. 4. Diabetes mellitus type 2. 5. Neuropathy. 6. Knee surgery. 7. Cervical spine surgery. 8. Venous stasis. CURRENT MEDICATIONS: Current medication list is reviewed in the chart. ALLERGIES: THERE ARE NONE REPORTED. FAMILY HISTORY: This is reviewed with the patient and is negative for GI malignancy. SOCIAL HISTORY: There is no current tobacco, alcohol, or substance abuse. REVIEW OF SYSTEMS: SKIN: No pruritus. HEENT: Negative. CARDIOPULMONARY: No shortness of breath or chest pain. GASTROINTESTINAL: As above. GENITOURINARY: Negative. NEUROPSYCHIATRIC: Positive for general malaise and anxiety. PHYSICAL EXAMINATION: GENERAL: Shows a pleasant elderly male, in no acute distress. VITAL SIGNS: Reviewed in the electronic medical record and are stable. SKIN: Anicteric. HEENT: Shows no scleral icterus. NECK: Without lymphadenopathy or thyromegaly. LUNGS: Clear. HEART: Shows a regular rate and rhythm. S1, S2. No murmur. ABDOMEN: Soft without focal masses or tenderness. Bowel sounds are present. No organomegaly is noted. EXTREMITIES: Show trace edema. LABORATORY DATA AND IMAGING STUDIES: Reviewed. IMPRESSION: Enteritis. His presentation appears most consistent with acute infectious enteritis with anorexia. I agree with treating him symptomatically for nausea. He has not vomited and can be advanced on his diet as tolerated. The abnormal stool test will require further evaluation pending his clinical course. Thanks for asking me to see him. I will follow him in the hospital with you. MD MARTIN Camacho/MAYITO / [id number] MTDD
[2024-03-10 16:47] LABS: Glucose, Whole Blood 79 mg/dL (60-115)
--- NOTE | 2024-03-10 16:48 | HO.WOUND ---
Wound Consult: Initial 83yr old? [place] [facility] - See progress notes and H&P for detailed history.? Wound consult placed for Buttock, Posterior thighs, and scrotum.? Patient agreeable to assessment and photo documentation.? Patient reports she provides all his care at home. She reports he has had the purple pigmentation for years, she reports she is incontinent at baseline and wears a brief at all times and sleeps and sits in his recliner chair at all times. She reports she does use vaseline and zinc based creams to protect his skin at home. She was educated on the importance of changing the brief frequently, and barrier creams at all times and other preventative measure to prevent pressure injury development or skin breakdown. Buttock and posterior Thighs Etiology: MASD - Chronic (Moisture Associated Skin Damage)??Present on Admission Wound Bed: intact tissue - dark purple intact tissue remains blanchable throughout Drainage / Odor: None Edges: ? irregular and mirrored Leanna wound: Intact ? No Induration, Fluctuance or Warmth noted Pain: denies Goals of Treatment: ? barrier cream and turn and reposition Q 2 hrs Scrotum Etiology: MASD - Chronic (Moisture Associated Skin Damage)??Present on Admission Wound Bed: intact tissue - dark purple intact tissue - nonblanchable throughout however is Not consistent with pressure injury development Drainage / Odor: None Edges: ?defined Leanna wound: Intact ? No Induration, Fluctuance or Warmth noted Pain: denies Goals of Treatment: ? barrier cream and turn and reposition Q 2 hrs Bilateral Lower legs noted for venous dermatitis - legs are intact no open wounds noted - cream applied Bilateral heels assessed for redness - remain intact and blanchable - preventative foams applied and off loaded with pillows. Recommendations: 1. Turn and Reposition every 2 hours and as needed for patient comfort.? Use pillows or wedges to support off loading positions. 2. Off Load all bony prominences with use of pillows and heel boots if needed.? Apply Preventative foams where needed. ? 3. Monitor for incontinence and moisture control, use barrier creams when needed for prevention and treatment. 4. Provide adequate and supplemental nutrition.? 5. Order or Continue low air loss mattress. 6. When applicable maintain blood glucose levels per Providers order. 7. Bilateral Heels - Elevate lower legs and heels off of surface of bed. Apply preventative foams to heels - peel back and assess Q shift change every 5 days. 8. Buttock, Posterior Thighs, and Scrotum - Off Load Pressure - Cleanse with PH balance spray or wipes, pat dry. ?Apply a layer Paulo Barrier Cream. Reapply thin layer PRN after each episode of incontinence. Re-consult wound care Nurse for wound deterioration or wound changes.
[2024-03-10 17:13] LABS: Glucose, Whole Blood 105 mg/dL (60-115)
[2024-03-10 17:57] LABS: Glucose, Whole Blood 109 mg/dL (60-115)
[2024-03-10 19:50] VITALS: BP 119/61; PULSE 58; RESP 20; TEMP 35.9; O2SAT 90
[2024-03-10] MEDS: Enoxaparin Sodium 40 MG/0.4 ML SYRINGE SUBCUT (20:02)
[2024-03-10 23:40] VITALS: BP 128/56; PULSE 70; RESP 20; TEMP 36.6; O2SAT 91
[2024-03-10 23:51] LABS: Glucose, Whole Blood 83 mg/dL (60-115)
[2024-03-11] MEDS: Piperacillin Sodium/Tazobactam 4.5 GM in 0.9 % Sodium Chloride 100 ML IV ×5 (00:29→23:48)
[2024-03-11 03:31] VITALS: BP 139/63; PULSE 71; RESP 20; TEMP 36.3; O2SAT 91
[2024-03-11 05:01] LABS: Glucose, Whole Blood 100 mg/dL (60-115)
[2024-03-11 08:00] VITALS: BP 137/60; PULSE 67; RESP 20; TEMP 36.8; O2SAT 91
[2024-03-11] MEDS: 0.9 % Sodium Chloride Flush 3 ML SYRINGE IVFLUSH ×3 (09:54→21:53)
[2024-03-11 11:20] LABS: Glucose, Whole Blood 91 mg/dL (60-115)
--- NOTE | 2024-03-11 11:22 | HO.PM.IMPN ---
Subjective Subjective Date of Service: 03/11/24 Interval History: Still mildly nauseous with no desire to eat. No acute issues overnight Review of Systems Denies chest pain Denies shortness of breath Admits to nausea but denies vomiting or diarrhea Denies fever chills Physical Exam Vital Signs: Vital Signs: Last Vital Signs Temp 98.3 F 03/11/24 08:00 Pulse 67 03/11/24 08:00 Resp 20 03/11/24 08:00 BP 137/60 03/11/24 08:00 Pulse Ox 91 L 03/11/24 08:00 O2 Del Method Room Air 03/11/24 08:00 BMI result Body Mass Index 32.1 Const: Other: Awake alert no acute distress Resp: Other: Clear to auscultation bilaterally no rales rhonchi or wheezes GI: Other: Soft nontender nondistended normoactive bowel sounds Extrem: Other: No edema bilaterally Objective Data Active Medications Acetaminophen (Acetaminophen 325 Mg Tablet) 650 mg PO Q6H PRN PRN Reason: Pain, Mild (Pain Scale 1-3), fever or headache Calcium Carbonate (Calcium Carbonate 750 Mg Tab.Chew) 750 mg PO Q4H PRN PRN Reason: Heartburn Enoxaparin Sodium (Enoxaparin Sodium 40 Mg/0.4 Ml Syringe) 40 mg SUBCUT Q24H [facility] Last Admin: 03/10/24 20:02 Dose: 40 mg Documented By: JANETTE Glucose (Glucose Gel 15 Gm Gel..Gram.) 15 gm PO Q15M PRN; Protocol PRN Reason: per Hypoglycemia Standing Ord. Last Admin: 03/10/24 16:15 Dose: 15 gm Documented By: KAYLIN Piperacillin Sod/Tazobactam (Sod 4.5 gm/ Sodium Chloride) 100 mls @ 200 mls/hr IV Q6H [facility] Last Infusion: 03/11/24 06:23 Dose: Infused Documented By: JANETTE Dextrose (D10) 250 mls @ 750 mls/hr IV Q15M PRN; Protocol PRN Reason: per Hypoglycemia Standing Ord. Insulin Human Lispro (Insulin Lispro 100 Unit/Ml 3 Ml Vial) 0 unit SUBCUT Q6H [facility]; Protocol Last Admin: 03/11/24 11:20 Dose: Not Given Documented By: JAZMYNE Non-Admin Reason: No Insulin Coverage Magnesium Hydroxide (Milk Of Magnesia 30 Ml Oral.Susp) 30 ml PO DAILY PRN PRN Reason: Constipation Melatonin (Melatonin 3 Mg Tablet) 6 mg PO BEDTIME PRN PRN Reason: Insomnia Ondansetron HCl (Ondansetron Hcl 4 Mg/2 Ml Vial) 4 mg IVPUSH Q6H PRN PRN Reason: Nausea and Vomiting Last Admin: 03/10/24 08:41 Dose: 4 mg Documented By: ABISAI Sodium Chloride (0.9 % Sodium Chloride Flush 3 Ml Syringe) [facility] Last Admin: 03/11/24 09:54 Dose: 3 ml Documented By: AJZMYNE Labs 03/08/24 06:14 03/08/24 06:14 Labs: Laboratory Results - last 24 hr 03/10/24 03/10/24 03/10/24 15:58 16:44 17:10 POC Glucose 69 79 105 03/10/24 03/10/24 03/11/24 17:53 23:44 04:56 POC Glucose 109 83 100 03/11/24 11:14 POC Glucose 91 Assessment and Plan (1) Enteritis: Status: Acute (2) E coli bacteremia: Status: Acute Plan 83-year-old male with a history of diabetes mellitus, hypertension, anemia, diabetic polyneuropathy, chronic venous stasis, htn admitted for further management of severe sepsis due to enteritis with symptomatic cholelithiasis and suspected evolving pneumonia 1.Severe sepsis due to enteritis with symptomatic cholelithiasis.. Sepsis resolved -clear liquid diet. .. Advance as tolerated (no interest today) -Zosyn (5) -cultures negative thus far -appreciate GI input; treat enteritis outpatient follow-up 2.Acute hypotension -resolved on admission, r/t severe sepsis -normotensive as present; continued to hold outpatient therapies 3.Suspected evolving pneumonia -pneumonitis on cxr , ?aspiration in setting of recurrent vomiting -zosyn(5) -cultures negative thus far 4.Acute UTI -E coli; with bacteremia -continue Zosyn 5.Non insulin dependent type 2 diabetes -acceptable control on current therapies -lispro correctional scale Lovenox DNR DNI Requires ongoing hospitalization for IV antibiotics to treat cholelithiasis and likely UTI. Quality Stroke Does the patient have a stroke diagnosis?: No VTE Prior VTE?: No VTE Risk Level:: Medical - moderate - high VTE Device Contraindication: Treatment Not Indicated VTE Drug Contraindication: N/A - Med Ordered
[2024-03-11 12:00] VITALS: BP 144/61; PULSE 70; RESP 18; TEMP 36.6; O2SAT 92
[2024-03-11 16:00] VITALS: BP 151/58; PULSE 70; RESP 20; TEMP 36.4; O2SAT 94
[2024-03-11 16:16] LABS: Glucose, Whole Blood 100 mg/dL (60-115)
--- NOTE | 2024-03-11 16:31 | PM.PNGS ---
Subjective Subjective Date of Service: 03/13/24 Interval history: Describes poor oral intake He says that he spits out a lot because of his ?cough and secretions? Denies significant abdominal pain Physical Exam Vital Signs: Vital Signs: Last Vital Signs Temp 97.9 F 03/11/24 12:00 Pulse 70 03/11/24 12:00 Resp 18 03/11/24 12:00 BP 144/61 H 03/11/24 12:00 Pulse Ox 92 03/11/24 12:00 O2 Del Method Room Air 03/11/24 12:00 BMI result Body Mass Index 32.1 Const: Other: Morbidly obese and frail looking General: comfortable Resp: Effort & Inspection: normal respiratory effort Cardio: Rate: regular rate GI: Other: No Young's sign Palpation (GI): Soft to palpation, not firm, nontender and no guarding Objective Data Active Medications Acetaminophen (Acetaminophen 325 Mg Tablet) 650 mg PO Q6H PRN PRN Reason: Pain, Mild (Pain Scale 1-3), fever or headache Calcium Carbonate (Calcium Carbonate 750 Mg Tab.Chew) 750 mg PO Q4H PRN PRN Reason: Heartburn Enoxaparin Sodium (Enoxaparin Sodium 40 Mg/0.4 Ml Syringe) 40 mg SUBCUT Q24H [facility] Last Admin: 03/10/24 20:02 Dose: 40 mg Documented By: JANETTE Glucose (Glucose Gel 15 Gm Gel..Gram.) 15 gm PO Q15M PRN; Protocol PRN Reason: per Hypoglycemia Standing Ord. Last Admin: 03/10/24 16:15 Dose: 15 gm Documented By: KAYLIN Piperacillin Sod/Tazobactam (Sod 4.5 gm/ Sodium Chloride) 100 mls @ 200 mls/hr IV Q6H [facility] Last Infusion: 03/11/24 12:31 Dose: Infused Documented By: JAZMYNE Dextrose (D10) 250 mls @ 750 mls/hr IV Q15M PRN; Protocol PRN Reason: per Hypoglycemia Standing Ord. Insulin Human Lispro (Insulin Lispro 100 Unit/Ml 3 Ml Vial) 0 unit SUBCUT Q6H [facility]; Protocol Last Admin: 03/11/24 16:19 Dose: Not Given Documented By: JAZMYNE Non-Admin Reason: No Insulin Coverage Magnesium Hydroxide (Milk Of Magnesia 30 Ml Oral.Susp) 30 ml PO DAILY PRN PRN Reason: Constipation Melatonin (Melatonin 3 Mg Tablet) 6 mg PO BEDTIME PRN PRN Reason: Insomnia Ondansetron HCl (Ondansetron Hcl 4 Mg/2 Ml Vial) 4 mg IVPUSH Q6H PRN PRN Reason: Nausea and Vomiting Last Admin: 03/10/24 08:41 Dose: 4 mg Documented By: ABISAI Sodium Chloride (0.9 % Sodium Chloride Flush 3 Ml Syringe) 3 ml IVFLUSH [facility] Last Admin: 03/11/24 09:54 Dose: 3 ml Documented By: JAZMYNE Labs 03/12/24 08:48 03/12/24 08:48 Labs: Laboratory Results - last 24 hr 03/10/24 03/10/24 03/10/24 16:44 17:10 17:53 POC Glucose 79 105 109 03/10/24 03/11/24 03/11/24 23:44 04:56 11:14 POC Glucose 83 100 91 03/11/24 16:08 POC Glucose 100 Procedures Date of Service Date of Service: 03/13/24 Progress Note: A&P Assessment and plan (1) Gallstones: Status: Acute Assessment and Plan: Clinically not acute cholecystitis He does have suggestion of enteritis on CT scan He had a previous positive Cologuard test - we will leave this up to GI for colonoscopy as the patient appears to be of frail health with multiple medical problems Abdominal exam very benign otherwise With the advance diet as tolerated Time Spent With Patient Time: Total time managing care of this patient today ____ minutes. Quality Stroke Does the patient have a stroke diagnosis?: No VTE Prior VTE?: No VTE Risk Level:: Medical - moderate - high VTE Device Contraindication: Treatment Not Indicated VTE Drug Contraindication: N/A - Med Ordered
[2024-03-11 19:51] VITALS: BP 140/68; PULSE 57; RESP 18; TEMP 36.3; O2SAT 90
[2024-03-11] MEDS: Enoxaparin Sodium 40 MG/0.4 ML SYRINGE SUBCUT (21:48)
[2024-03-11 23:12] VITALS: BP 139/62; PULSE 74; RESP 18; TEMP 36.9; O2SAT 92
[2024-03-12] VITALS (7 sets, daily range): BP systolic 133–146; BP diastolic 53–68; PULSE 63–81; RESP 16–20; TEMP 36.1–36.7; O2SAT 92–95
[2024-03-12 00:15] LABS: Glucose, Whole Blood 95 mg/dL (60-115)
[2024-03-12] MEDS: Piperacillin Sodium/Tazobactam 4.5 GM in 0.9 % Sodium Chloride 100 ML IV ×4 (05:38→23:02)
[2024-03-12 06:51] LABS: Glucose, Whole Blood 108 mg/dL (60-115)
[2024-03-12] MEDS: 0.9 % Sodium Chloride Flush 3 ML SYRINGE IVFLUSH ×3 (07:54→23:04)
[2024-03-12 09:10] LABS: MANUAL DIFF FLAG NO
[2024-03-12 09:12] LABS: Basophils Absolute Auto 0.1 X10*3/uL (0.0-0.2); Basophils Percent Auto 0.7 % (0-2); Eosinophils Absolute Auto 0.3 X10*3/uL (0.0-0.4); Eosinophils Percent Auto 3.7 % (0-4); Hematocrit 34.9 % (42.0-52.0); Imm Gran Abs Auto 0.06 X10*3/uL (0.00-0.03); Imm Gran Pct Auto 0.7 % (0.0-0.4); Lymphocytes Absolute Auto 1.1 X10*3/uL (1.2-4.9); Lymphocytes Percent Auto 12.7 % (20-40); Mean Corpuscular HGB Conc 34.4 g/dl (31.0-36.0); Mean Corpuscular Hemoglobin 32.4 pg (27.0-33.0); Mean Corpuscular Volume 94.3 fL (80.0-98.0); Mean Platelet Volume 8.6 fL (9.4-12.4); Monocytes Absolute Auto 1.1 X10*3/uL (0.1-1.2); Monocytes Percent Auto 12.2 % (2-11); Neutrophils Absolute Auto 6.1 x10*3/uL (2.0-8.3); Platelet Count 161 X10*3/uL (160-400); Red Cell Distribution Width 13.6 % (11.0-16.0); White Blood Count 8.7 X10*3/uL (4.8-10.8)
[2024-03-12 09:23] LABS: Anion Gap 10 (12-20); Blood Urea Nitrogen 6 mg/dL (9-16); Calcium 7.9 mg/dL (8.4-10.2); Carbon Dioxide 29 mmol/L (22-29); Chloride 107 mmol/L (96-108); Creatinine Clr Calc Pharmacy 99.8; Estimated Glomerular Filt Rate > 60; Glucose Random 97 mg/dL (60-115); Potassium 3.3 mmol/L (3.3-5.1); Sodium 143 mmol/L (135-145)
--- NOTE | 2024-03-12 10:26 | P.PNGI_ITS ---
Subjective Subjective Date of Service: 03/12/24 Interval History: tolerating liquids no vomiting Critical Care Time (minutes): 0 Physical Exam 2 Vital Signs: Vital Signs: Last Vital Signs Temp 98.0 F 03/12/24 08:00 Pulse 71 03/12/24 08:00 Resp 18 03/12/24 08:00 BP 133/63 03/12/24 08:00 Pulse Ox 94 03/12/24 08:00 O2 Del Method Room Air 03/12/24 08:00 BMI result Body Mass Index 32.1 GI: Other: abdomen is soft and nontender Objective Data Labs 03/12/24 08:48 03/12/24 08:48 Microbiology Microbiology Results: Microbiology 03/07/24 15:51 Blood - Venous Blood Culture - Preliminary No growth after 48 hours. 03/07/24 15:44 Blood - Venous Blood Culture - Preliminary No growth after 48 hours. 03/07/24 16:47 Urine clean catch - Clean Catch Midstream Urine Culture - Final Procedures Date of Service Date of Service: 03/12/24 Progress Note: A&P Assessment and plan (1) E coli bacteremia: Status: Acute Plan continue antibiotics advance diet as tolerated. Time Spent With Patient Time: Total time managing care of this patient today ____ minutes. Quality Stroke Does the patient have a stroke diagnosis?: No VTE Prior VTE?: No VTE Risk Level:: Medical - moderate - high VTE Device Contraindication: Treatment Not Indicated VTE Drug Contraindication: N/A - Med Ordered
--- NOTE | 2024-03-12 10:33 | MHC.CM.PN ---
Per ROUNDS discussion, Patient is not yet medically cleared for dc (advancing diet and PT Eval is needed to assist with disposition); CM will follow.
[2024-03-12 10:46] LABS: Glucose, Whole Blood 83 mg/dL (60-115)
[2024-03-12 11:39] LABS: Alanine Aminotransferase 5 U/L (0-40); Albumin Level 2.3 g/dL (3.5-5.0); Alkaline Phosphatase 66 U/L (39-117); Aspartate Amino Transferase 18 U/L (5-37); Bilirubin Direct 0.5 mg/dL (0.0-0.5); Bilirubin Total 0.9 mg/dL (0.0-1.0); Total Protein 5.2 g/dL (6.5-8.0)
--- NOTE | 2024-03-12 12:12 | P.PNIM_ITS ---
Subjective Subjective Date of Service: 03/12/24 Interval History: Seen and examined this morning Follow-up for sepsis due to enteritis Still not wanting to eat as he is worried about worsening nausea Review of Systems Review of Systems: Yes all other systems are reviewed and are negative Constitutional Constitutional: Denies chills and Denies fever(s) Cardiovascular Cardiovascular: Denies chest pain, Denies palpitations and Denies dyspnea Respiratory Respiratory: Denies dyspnea Gastrointestinal Gastrointestinal: Reports nausea Endocrine Endocrine: Denies palpitations Physical Exam 2 Vital Signs: Vital Signs: Last Vital Signs Temp 97.8 F 03/12/24 12:00 Pulse 63 03/12/24 12:00 Resp 20 03/12/24 12:00 BP 140/62 H 03/12/24 12:00 Pulse Ox 95 03/12/24 12:00 O2 Del Method Room Air 03/12/24 12:00 BMI result Body Mass Index 32.1 Const: General: cooperative, comfortable, alert and awake Nutritional Appearance: average body habitus Orientation/consciousness: patient oriented x3 Resp: Effort & Inspection: normal respiratory effort, able to speak in complete sentences, no respiratory distress and no use of accessory muscles Cardio: Rate: regular rate GI: Other: no guarding, no rebound Inspection: No distended Palpation (GI): Soft to palpation Neuro: General: patient oriented x3, moves all extremities and CN's II-XI intact bilaterally Objective Data Active Medications Acetaminophen (Acetaminophen 325 Mg Tablet) 650 mg PO Q6H PRN PRN Reason: Pain, Mild (Pain Scale 1-3), fever or headache Calcium Carbonate (Calcium Carbonate 750 Mg Tab.Chew) 750 mg PO Q4H PRN PRN Reason: Heartburn Enoxaparin Sodium (Enoxaparin Sodium 40 Mg/0.4 Ml Syringe) 40 mg SUBCUT Q24H [facility] Last Admin: 03/11/24 21:48 Dose: 40 mg Documented By: JANETTE Glucose (Glucose Gel 15 Gm Gel..Gram.) 15 gm PO Q15M PRN; Protocol PRN Reason: per Hypoglycemia Standing Ord. Last Admin: 03/10/24 16:15 Dose: 15 gm Documented By: KAYLIN Piperacillin Sod/Tazobactam (Sod 4.5 gm/ Sodium Chloride) 100 mls @ 200 mls/hr IV Q6H [facility] Last Admin: 03/12/24 12:06 Dose: 200 mls/hr Documented By: JAZMYNE Dextrose (D10) 250 mls @ 750 mls/hr IV Q15M PRN; Protocol PRN Reason: per Hypoglycemia Standing Ord. Insulin Human Lispro (Insulin Lispro 100 Unit/Ml 3 Ml Vial) 0 unit SUBCUT Q6H [facility]; Protocol Last Admin: 03/12/24 11:17 Dose: Not Given Documented By: JAZMYNE Non-Admin Reason: No Insulin Coverage Magnesium Hydroxide (Milk Of Magnesia 30 Ml Oral.Susp) 30 ml PO DAILY PRN PRN Reason: Constipation Melatonin (Melatonin 3 Mg Tablet) 6 mg PO BEDTIME PRN PRN Reason: Insomnia Ondansetron HCl (Ondansetron Hcl 4 Mg/2 Ml Vial) 4 mg IVPUSH Q6H PRN PRN Reason: Nausea and Vomiting Last Admin: 03/10/24 08:41 Dose: 4 mg Documented By: ABISAI Sodium Chloride (0.9 % Sodium Chloride Flush 3 Ml Syringe) 3 ml IVFLUSH [facility] Last Admin: 03/12/24 07:54 Dose: 3 ml Documented By: JAZMYNE Labs 03/12/24 08:48 03/12/24 08:48 Labs: Laboratory Results - last 24 hr 03/11/24 03/12/24 03/12/24 16:08 00:11 06:47 MCV MCH MCHC RDW Plt Count MPV Immature Gran % (Auto) Neut % (Auto) Lymph % (Auto) Yates % (Auto) Eos % (Auto) Baso % (Auto) Lymph # (Auto) Yates # (Auto) Eos # (Auto) Baso # (Auto) Abs Immat Gran (auto) Absolute Neuts (auto) Absolute Nucleated RBC Nucleated RBC % (auto) Anion Gap Estim Creat Clear Calc Estimated GFR POC Glucose 100 95 108 Random Glucose Calcium Total Bilirubin Direct Bilirubin AST ALT Alkaline Phosphatase Total Protein Albumin 03/12/24 03/12/24 08:48 10:43 MCV 94.3 MCH 32.4 MCHC 34.4 RDW 13.6 Plt Count 161 MPV 8.6 L Immature Gran % (Auto) 0.7 H Neut % (Auto) 70.0 Lymph % (Auto) 12.7 L Yates % (Auto) 12.2 H Eos % (Auto) 3.7 Baso % (Auto) 0.7 Lymph # (Auto) 1.1 L Yates # (Auto) 1.1 Eos # (Auto) 0.3 Baso # (Auto) 0.1 Abs Immat Gran (auto) 0.06 H Absolute Neuts (auto) 6.1 Absolute Nucleated RBC 0.000 Nucleated RBC % (auto) 0.0 Anion Gap 10 L Estim Creat Clear Calc 99.8 Estimated GFR > 60 POC Glucose 83 Random Glucose 97 Calcium 7.9 L Total Bilirubin 0.9 Direct Bilirubin 0.5 AST 18 ALT 5 Alkaline Phosphatase 66 Total Protein 5.2 L Albumin 2.3 L Assessment and Plan (1) Enteritis: Status: Acute Plan 83-year-old male with a history of diabetes mellitus, hypertension, anemia, diabetic polyneuropathy, chronic venous stasis, htn admitted for further management of severe sepsis due to enteritis with symptomatic cholelithiasis and suspected evolving pneumonia Severe sepsis due to enteritis Sepsis resolved advance to full liquid diet Continue IV Zosyn for now cultures negative to date -appreciate GI input; treat enteritis outpatient follow-up Symptomatic cholelithiasis No evidence of acute cholecystitis Seen by surgery, no plan for cholecystectomy repeat LFTs normal Acute hypotension resolved on admission, r/t severe sepsis normotensive as present; continued to hold outpatient therapies Suspected evolving pneumonia pneumonitis on cxr , ?aspiration in setting of recurrent vomiting Continue IV Zosyn cultures negative thus far Acute UTI Urine culture greater than 100,000 mixed bacterial kamila Blood cultures negative Non insulin dependent type 2 diabetes ?diet controlled, no meds on med rec controlled -lispro correctional scale Acute lactic acidosis Resolved Lovenox DNR DNI dispo - PT eval pending Requires ongoing hospitalization for IV antibiotics to treat cholelithiasis and likely UTI. Quality Stroke Does the patient have a stroke diagnosis?: No VTE Prior VTE?: No VTE Risk Level:: Medical - moderate - high VTE Device Contraindication: Treatment Not Indicated VTE Drug Contraindication: N/A - Med Ordered
[2024-03-12] MEDS: Folic Acid 1 MG TABLET PO (12:57)
[2024-03-12] MEDS: Escitalopram Oxalate 20 MG TABLET PO (12:57)
--- NOTE | 2024-03-12 14:33 | MHC.CM.PN ---
PT is recommending STR; CM will follow.
[2024-03-12 15:52] LABS: Glucose, Whole Blood 111 mg/dL (60-115)
[2024-03-12] MEDS: Metoprolol Succinate ER 25 MG TAB.ER.24H PO (17:34)
[2024-03-12 20:46] LABS: Glucose, Whole Blood 111 mg/dL (60-115)
[2024-03-12] MEDS: Enoxaparin Sodium 40 MG/0.4 ML SYRINGE SUBCUT (21:26)
[2024-03-13] VITALS (7 sets, daily range): BP systolic 134–144; BP diastolic 55–72; PULSE 53–63; RESP 16–23; TEMP 36.1–36.8; O2SAT 93–95
[2024-03-13 04:26] LABS: Glucose, Whole Blood 84 mg/dL (60-115)
[2024-03-13] MEDS: Piperacillin Sodium/Tazobactam 4.5 GM in 0.9 % Sodium Chloride 100 ML IV ×4 (05:59→23:07)
[2024-03-13] MEDS: Folic Acid 1 MG TABLET PO (09:04)
[2024-03-13] MEDS: Escitalopram Oxalate 20 MG TABLET PO (09:04)
[2024-03-13] MEDS: ondansetron HCL 4 MG/2 ML VIAL IVPUSH (09:04)
[2024-03-13 10:08] LABS: Glucose, Whole Blood 97 mg/dL (60-115)
--- NOTE | 2024-03-13 10:09 | PM.PNGS ---
Subjective Subjective Date of Service: 03/13/24 Interval history: Says he still gets nauseous with meals and has small emesis Passing flatus well Has BMs Denies abdominal pain Physical Exam Vital Signs: Vital Signs: Last Vital Signs Temp 97 F 03/13/24 08:00 Pulse 54 03/13/24 09:25 Resp 16 03/13/24 08:00 BP 141/63 H 03/13/24 09:25 Pulse Ox 94 03/13/24 09:25 O2 Del Method Room Air 03/13/24 08:00 BMI result Body Mass Index 32.1 Const: Other: Frail looking, answers questions General: no acute distress Resp: Effort & Inspection: normal respiratory effort Cardio: Rate: regular rate GI: Other: No Young's sign Palpation (GI): Soft to palpation, not firm, nontender and no guarding Objective Data Active Medications Acetaminophen (Acetaminophen 325 Mg Tablet) 650 mg PO Q6H PRN PRN Reason: Pain, Mild (Pain Scale 1-3), fever or headache Calcium Carbonate (Calcium Carbonate 750 Mg Tab.Chew) 750 mg PO Q4H PRN PRN Reason: Heartburn Enoxaparin Sodium (Enoxaparin Sodium 40 Mg/0.4 Ml Syringe) 40 mg SUBCUT Q24H [facility] Last Admin: 03/12/24 21:26 Dose: 40 mg Documented By: TI Escitalopram Oxalate (Escitalopram Oxalate 20 Mg Tablet) 20 mg PO DAILY [facility] Last Admin: 03/13/24 09:04 Dose: 20 mg Documented By: FRANK Folic Acid (Folic Acid 1 Mg Tablet) 1 mg PO DAILY [facility] Last Admin: 03/13/24 09:04 Dose: 1 mg Documented By: FRANK Glucose (Glucose Gel 15 Gm Gel..Gram.) 15 gm PO Q15M PRN; Protocol PRN Reason: per Hypoglycemia Standing Ord. Last Admin: 03/10/24 16:15 Dose: 15 gm Documented By: KAYLIN Piperacillin Sod/Tazobactam (Sod 4.5 gm/ Sodium Chloride) 100 mls @ 200 mls/hr IV Q6H [facility] Last Infusion: 03/13/24 06:25 Dose: Infused Documented By: TI Dextrose (D10) 250 mls @ 750 mls/hr IV Q15M PRN; Protocol PRN Reason: per Hypoglycemia Standing Ord. Insulin Human Lispro (Insulin Lispro 100 Unit/Ml 3 Ml Vial) 0 unit SUBCUT Q6H [facility]; Protocol Last Admin: 03/13/24 05:00 Dose: Not Given Documented By: TI Non-Admin Reason: No Insulin Coverage Magnesium Hydroxide (Milk Of Magnesia 30 Ml Oral.Susp) 30 ml PO DAILY PRN PRN Reason: Constipation Melatonin (Melatonin 3 Mg Tablet) 6 mg PO BEDTIME PRN PRN Reason: Insomnia Metoprolol Succinate (Metoprolol Succinate Er 25 Mg Tab.Er.24h) 25 mg PO DAILY [facility]; Protocol Last Admin: 03/12/24 17:34 Dose: 25 mg Documented By: JAZMYNE Ondansetron HCl (Ondansetron Hcl 4 Mg/2 Ml Vial) 4 mg IVPUSH Q6H PRN PRN Reason: Nausea and Vomiting Last Admin: 03/13/24 09:04 Dose: 4 mg Documented By: FRANK Sodium Chloride (0.9 % Sodium Chloride Flush 3 Ml Syringe) 3 ml IVFLUSH QSHIFT [facility] Last Admin: 03/12/24 23:04 Dose: 3 ml Documented By: TI Labs 03/12/24 08:48 03/12/24 08:48 Labs: Laboratory Results - last 24 hr 03/12/24 03/12/24 03/12/24 08:48 10:43 15:44 POC Glucose 83 111 Total Bilirubin 0.9 Direct Bilirubin 0.5 AST 18 ALT 5 Alkaline Phosphatase 66 Total Protein 5.2 L Albumin 2.3 L 03/12/24 03/13/24 03/13/24 20:42 04:21 10:05 POC Glucose 111 84 97 Total Bilirubin Direct Bilirubin AST ALT Alkaline Phosphatase Total Protein Albumin Microbiology Microbiology Results: Microbiology 03/07/24 15:51 Blood Culture - Final Blood - Venous No growth after 5 days. 03/07/24 15:44 Blood Culture - Final Blood - Venous No growth after 5 days. Procedures Date of Service Date of Service: 03/13/24 Progress Note: A&P Assessment and plan (1) Gallstones: Status: Acute Assessment and Plan: Clinically does not seem to have acute cholecystitis Does have some nausea with oral intake Consider upper GI series in view of dilated proximal duodenum on CT scan Passing flatus and has BMs Time Spent With Patient Time: Total time managing care of this patient today ____ minutes. Quality Stroke Does the patient have a stroke diagnosis?: No VTE Prior VTE?: No VTE Risk Level:: Medical - moderate - high VTE Device Contraindication: Treatment Not Indicated VTE Drug Contraindication: N/A - Med Ordered
--- NOTE | 2024-03-13 11:17 | MHC.CM.PN ---
EMR reviewed and per MD rounds, pt is medically cleared for discharge to STR. This CM met with pt to discuss STR options, per pt he needed to discuss with his . With pts permission, this CM called pts Filomena to discuss STR. Per Filomena, she agrees that STR would be the best plan for her , and [facility] is first choice. This CM made pt aware of the conversation with Filomena and he is in agreement with going to [facility] pending insurance auth. This CM contacted [facility], and they are submitting for insurance auth.
[2024-03-13] MEDS: 0.9 % Sodium Chloride Flush 3 ML SYRINGE IVFLUSH ×2 (11:57→18:00)
--- NOTE | 2024-03-13 12:15 | P.PNIM_ITS ---
Subjective Subjective Date of Service: 03/13/24 Interval History: seen and examined this morning follow up for enteritis ate small amount this am, but then had an episode of vomiting passing gas and having BMs no abdominal pain Review of Systems Review of Systems: Yes all other systems are reviewed and are negative Constitutional Constitutional: Denies chills and Denies fever(s) Cardiovascular Cardiovascular: Denies chest pain and Denies dyspnea Respiratory Respiratory: Denies cough and Denies dyspnea Physical Exam 2 Vital Signs: Vital Signs: Last Vital Signs Temp 97.6 F 03/13/24 11:57 Pulse 55 03/13/24 11:57 Resp 16 03/13/24 11:57 BP 137/61 03/13/24 11:57 Pulse Ox 95 03/13/24 11:57 O2 Del Method Room Air 03/13/24 11:57 BMI result Body Mass Index 32.1 Const: Other: frail General: cooperative, comfortable, alert and awake Nutritional Appearance: average body habitus Orientation/consciousness: patient oriented x3 Resp: Effort & Inspection: normal respiratory effort, able to speak in complete sentences, no respiratory distress and no use of accessory muscles Cardio: Rate: regular rate GI: Other: no guarding, no rebound Inspection: No distended Palpation (GI): Soft to palpation and nontender Neuro: General: patient oriented x3, moves all extremities and CN's II-XI intact bilaterally Objective Data Active Medications Acetaminophen (Acetaminophen 325 Mg Tablet) 650 mg PO Q6H PRN PRN Reason: Pain, Mild (Pain Scale 1-3), fever or headache Calcium Carbonate (Calcium Carbonate 750 Mg Tab.Chew) 750 mg PO Q4H PRN PRN Reason: Heartburn Enoxaparin Sodium (Enoxaparin Sodium 40 Mg/0.4 Ml Syringe) 40 mg SUBCUT Q24H [facility] Last Admin: 03/12/24 21:26 Dose: 40 mg Documented By: TI Escitalopram Oxalate (Escitalopram Oxalate 20 Mg Tablet) 20 mg PO DAILY [facility] Last Admin: 03/13/24 09:04 Dose: 20 mg Documented By: FRANK Folic Acid (Folic Acid 1 Mg Tablet) 1 mg PO DAILY [facility] Last Admin: 03/13/24 09:04 Dose: 1 mg Documented By: FRANK Glucose (Glucose Gel 15 Gm Gel..Gram.) 15 gm PO Q15M PRN; Protocol PRN Reason: per Hypoglycemia Standing Ord. Last Admin: 03/10/24 16:15 Dose: 15 gm Documented By: KAYLIN Piperacillin Sod/Tazobactam (Sod 4.5 gm/ Sodium Chloride) 100 mls @ 200 mls/hr IV Q6H [facility] Last Admin: 03/13/24 11:57 Dose: 200 mls/hr Documented By: FRANK Dextrose (D10) 250 mls @ 750 mls/hr IV Q15M PRN; Protocol PRN Reason: per Hypoglycemia Standing Ord. Insulin Human Lispro (Insulin Lispro 100 Unit/Ml 3 Ml Vial) 0 unit SUBCUT Q6H [facility]; Protocol Last Admin: 03/13/24 10:19 Dose: Not Given Documented By: FRANK Non-Admin Reason: No Insulin Coverage Magnesium Hydroxide (Milk Of Magnesia 30 Ml Oral.Susp) 30 ml PO DAILY PRN PRN Reason: Constipation Melatonin (Melatonin 3 Mg Tablet) 6 mg PO BEDTIME PRN PRN Reason: Insomnia Metoprolol Succinate (Metoprolol Succinate Er 25 Mg Tab.Er.24h) 25 mg PO DAILY [facility]; Protocol Last Admin: 03/12/24 17:34 Dose: 25 mg Documented By: JAZMYNE Ondansetron HCl (Ondansetron Hcl 4 Mg/2 Ml Vial) 4 mg IVPUSH Q6H PRN PRN Reason: Nausea and Vomiting Last Admin: 03/13/24 09:04 Dose: 4 mg Documented By: FRANK Sodium Chloride (0.9 % Sodium Chloride Flush 3 Ml Syringe) 3 ml IVFLUSH QSHIFT [facility] Last Admin: 03/13/24 11:57 Dose: 3 ml Documented By: FRANK Labs 03/12/24 08:48 03/12/24 08:48 Labs: Laboratory Results - last 24 hr 03/12/24 03/12/24 03/13/24 15:44 20:42 04:21 POC Glucose 111 111 84 03/13/24 10:05 POC Glucose 97 Microbiology Microbiology Results: Microbiology 03/07/24 15:51 Blood Culture - Final Blood - Venous No growth after 5 days. 03/07/24 15:44 Blood Culture - Final Blood - Venous No growth after 5 days. Assessment and Plan (1) Enteritis: Status: Acute Plan 83-year-old male with a history of diabetes mellitus, hypertension, anemia, diabetic polyneuropathy, chronic venous stasis, htn admitted for further management of severe sepsis due to enteritis with symptomatic cholelithiasis and suspected evolving pneumonia Severe sepsis due to enteritis Sepsis resolved diet advance, but not tolerating, downgraded back to full liquids Continue IV Zosyn for now cultures negative to date appreciate GI input; treat enteritis outpatient follow-up surgery following - rec repeat CT scan with po contrast cholelithiasis No evidence of acute cholecystitis Seen by surgery, no plan for cholecystectomy repeat LFTs normal Acute hypotension resolved on admission, r/t severe sepsis normotensive as present hold metoprolol Suspected evolving pneumonia pneumonitis on cxr , ?aspiration in setting of recurrent vomiting Continue IV Zosyn cultures negative thus far no hypoxia, no respiratory symptoms at this time Acute UTI Urine culture greater than 100,000 mixed bacterial kamila Blood cultures negative Non insulin dependent type 2 diabetes ?diet controlled, no meds on med rec BS controlled lispro correctional scale Acute lactic acidosis Resolved Lovenox DNR DNI dispo - PT rec STR when medically ready for discharge Requires ongoing hospitalization for IV antibiotics, management of enteritis, further work up for abdominal pain and nausea, unable to tolerate PO intake Quality Stroke Does the patient have a stroke diagnosis?: No VTE Prior VTE?: No VTE Risk Level:: Medical - moderate - high VTE Device Contraindication: Treatment Not Indicated VTE Drug Contraindication: N/A - Med Ordered
[2024-03-13 16:17] LABS: Glucose, Whole Blood 78 mg/dL (60-115)
[2024-03-13] MEDS: Diatrizoate Meglumine, Sodium 30 ML SOLUTION PO (16:57)
[2024-03-13] MEDS: Enoxaparin Sodium 40 MG/0.4 ML SYRINGE SUBCUT (20:37)
[2024-03-13 22:09] LABS: Glucose, Whole Blood 76 mg/dL (60-115)
[2024-03-14] MEDS: 0.9 % Sodium Chloride Flush 3 ML SYRINGE IVFLUSH ×3 (00:28→18:10)
[2024-03-14 02:53] VITALS: BP 134/62; PULSE 58; RESP 22; TEMP 36.5; O2SAT 91
[2024-03-14 03:39] LABS: Glucose, Whole Blood 98 mg/dL (60-115)
[2024-03-14] MEDS: Piperacillin Sodium/Tazobactam 4.5 GM in 0.9 % Sodium Chloride 100 ML IV ×2 (05:39→11:14)
[2024-03-14 07:19] VITALS: BP 124/61; PULSE 56; RESP 18; TEMP 36.3; O2SAT 92
[2024-03-14 07:26] LABS: Anion Gap 12 (12-20); Blood Urea Nitrogen 6 mg/dL (9-16); Calcium 8.2 mg/dL (8.4-10.2); Carbon Dioxide 29 mmol/L (22-29); Chloride 106 mmol/L (96-108); Creatinine Clr Calc Pharmacy 110.7; Estimated Glomerular Filt Rate > 60; Glucose Random 92 mg/dL (60-115); Sodium 144 mmol/L (135-145)
[2024-03-14] MEDS: Escitalopram Oxalate 20 MG TABLET PO (07:46)
[2024-03-14] MEDS: Folic Acid 1 MG TABLET PO (07:46)
[2024-03-14 07:48] LABS: Hematocrit 35.4 % (42.0-52.0); Hemoglobin 12.4 g/dl (14.0-18.0); Mean Corpuscular Hemoglobin 32.7 pg (27.0-33.0); Mean Corpuscular Volume 93.4 fL (80.0-98.0); Mean Platelet Volume 8.6 fL (9.4-12.4); Platelet Count 170 X10*3/uL (160-400); Red Blood Count 3.79 X10*6/uL (4.60-5.80); Red Cell Distribution Width 13.9 % (11.0-16.0); White Blood Count 9.7 X10*3/uL (4.8-10.8)
[2024-03-14 10:20] LABS: Glucose, Whole Blood 94 mg/dL (60-115)
[2024-03-14 11:04] VITALS: BP 138/60; PULSE 56; RESP 20; TEMP 36.4; O2SAT 95
--- NOTE | 2024-03-14 11:11 | P.PNGI_ITS ---
Subjective Subjective Date of Service: 03/14/24 Interval History: no appetite Critical Care Time (minutes): 0 Physical Exam 2 Vital Signs: Vital Signs: Last Vital Signs Temp 97.5 F 03/14/24 11:04 Pulse 56 03/14/24 11:04 Resp 20 03/14/24 11:04 BP 138/60 03/14/24 11:04 Pulse Ox 95 03/14/24 11:04 O2 Del Method Room Air 03/14/24 11:04 BMI result Body Mass Index 32.1 Const: General: tired appearing GI: Other: abdomen is soft and nontender Objective Data Labs 03/14/24 06:16 03/14/24 06:16 Labs: Laboratory Results - last 24 hr 03/13/24 03/13/24 03/14/24 16:11 22:04 03:36 WBC RBC Hgb Hct MCV MCH MCHC RDW Plt Count MPV Absolute Nucleated RBC Nucleated RBC % (auto) Hold Purple Top Sodium Potassium Chloride Carbon Dioxide Anion Gap BUN Creatinine Estim Creat Clear Calc Estimated GFR POC Glucose 78 76 98 Random Glucose Calcium 03/14/24 03/14/24 06:16 10:16 WBC 9.7 RBC 3.79 L Hgb 12.4 L Hct 35.4 L MCV 93.4 MCH 32.7 MCHC 35.0 RDW 13.9 Plt Count 170 MPV 8.6 L Absolute Nucleated RBC 0.000 Nucleated RBC % (auto) 0.0 Hold Purple Top SEE NOTE Sodium 144 Potassium 3.0 L Chloride 106 Carbon Dioxide 29 Anion Gap 12 BUN 6 L Creatinine 0.64 Estim Creat Clear Calc 110.7 Estimated GFR > 60 POC Glucose 94 Random Glucose 92 Calcium 8.2 L Microbiology Microbiology Results: Microbiology 03/07/24 15:51 Blood - Venous Blood Culture - Final No growth after 5 days. 03/07/24 15:44 Blood - Venous Blood Culture - Final No growth after 5 days. 03/07/24 16:47 Urine clean catch - Clean Catch Midstream Urine Culture - Final Procedures Date of Service Date of Service: 03/14/24 Progress Note: A&P Assessment and plan (1) E coli bacteremia: Status: Acute Plan stable advance diet I called radiology and asked to get a CT reading. Time Spent With Patient Time: Total time managing care of this patient today ____ minutes. Quality Stroke Does the patient have a stroke diagnosis?: No VTE Prior VTE?: No VTE Risk Level:: Medical - moderate - high VTE Device Contraindication: Treatment Not Indicated VTE Drug Contraindication: N/A - Med Ordered
[2024-03-14] MEDS: Potassium Chloride Packet 20 MEQ PACKET 40 MEQ PO (11:15)
--- NOTE | 2024-03-14 13:25 | P.PNIM_ITS ---
Subjective Subjective Date of Service: 03/14/24 Interval History: seen and examined this morning follow up for enteritis failed po diet advancement yesterday still reporting nausea and decreased appetite Review of Systems Review of Systems: Yes all other systems are reviewed and are negative Constitutional Constitutional: Denies chills and Denies fever(s) Cardiovascular Cardiovascular: Denies chest pain and Denies dyspnea Respiratory Respiratory: Denies dyspnea Gastrointestinal Gastrointestinal: Reports nausea and Denies vomiting Physical Exam 2 Vital Signs: Vital Signs: Last Vital Signs Temp 97.5 F 03/14/24 11:04 Pulse 56 03/14/24 11:04 Resp 20 03/14/24 11:04 BP 138/60 03/14/24 11:04 Pulse Ox 95 03/14/24 11:04 O2 Del Method Room Air 03/14/24 11:04 BMI result Body Mass Index 32.1 Const: Other: frail General: cooperative, comfortable, alert and awake Nutritional Appearance: average body habitus Orientation/consciousness: patient oriented x3 Resp: Effort & Inspection: normal respiratory effort, able to speak in complete sentences, no respiratory distress and no use of accessory muscles Cardio: Rate: regular rate GI: Other: no guarding, no rebound Inspection: No distended Palpation (GI): Soft to palpation and nontender Neuro: General: patient oriented x3, moves all extremities and CN's II-XI intact bilaterally Objective Data Active Medications Acetaminophen (Acetaminophen 325 Mg Tablet) 650 mg PO Q6H PRN PRN Reason: Pain, Mild (Pain Scale 1-3), fever or headache Calcium Carbonate (Calcium Carbonate 750 Mg Tab.Chew) 750 mg PO Q4H PRN PRN Reason: Heartburn Enoxaparin Sodium (Enoxaparin Sodium 40 Mg/0.4 Ml Syringe) 40 mg SUBCUT Q24H [facility] Last Admin: 03/13/24 20:37 Dose: 40 mg Documented By: TI Escitalopram Oxalate (Escitalopram Oxalate 20 Mg Tablet) 20 mg PO DAILY [facility] Last Admin: 03/14/24 07:46 Dose: 20 mg Documented By: MARY Folic Acid (Folic Acid 1 Mg Tablet) 1 mg PO DAILY [facility] Last Admin: 03/14/24 07:46 Dose: 1 mg Documented By: MARY Glucose (Glucose Gel 15 Gm Gel..Gram.) 15 gm PO Q15M PRN; Protocol PRN Reason: per Hypoglycemia Standing Ord. Last Admin: 03/10/24 16:15 Dose: 15 gm Documented By: KAYLIN Dextrose (D10) 250 mls @ 750 mls/hr IV Q15M PRN; Protocol PRN Reason: per Hypoglycemia Standing Ord. Insulin Human Lispro (Insulin Lispro 100 Unit/Ml 3 Ml Vial) 0 unit SUBCUT Q6H [facility]; Protocol Last Admin: 03/14/24 11:12 Dose: Not Given Documented By: MARY Non-Admin Reason: No Insulin Coverage Magnesium Hydroxide (Milk Of Magnesia 30 Ml Oral.Susp) 30 ml PO DAILY PRN PRN Reason: Constipation Melatonin (Melatonin 3 Mg Tablet) 6 mg PO BEDTIME PRN PRN Reason: Insomnia Ondansetron HCl (Ondansetron Hcl 4 Mg/2 Ml Vial) 4 mg IVPUSH Q6H PRN PRN Reason: Nausea and Vomiting Last Admin: 03/13/24 09:04 Dose: 4 mg Documented By: FRANK Sodium Chloride (0.9 % Sodium Chloride Flush 3 Ml Syringe) 3 ml IVFLUSH QSHIFT [facility] Last Admin: 03/14/24 07:46 Dose: 3 ml Documented By: MARY Labs 03/14/24 06:16 03/14/24 06:16 Labs: Laboratory Results - last 24 hr 03/13/24 03/13/24 03/14/24 16:11 22:04 03:36 MCV MCH MCHC RDW Plt Count MPV Absolute Nucleated RBC Nucleated RBC % (auto) Hold Purple Top Anion Gap Estim Creat Clear Calc Estimated GFR POC Glucose 78 76 98 Random Glucose Calcium 03/14/24 03/14/24 06:16 10:16 MCV 93.4 MCH 32.7 MCHC 35.0 RDW 13.9 Plt Count 170 MPV 8.6 L Absolute Nucleated RBC 0.000 Nucleated RBC % (auto) 0.0 Hold Purple Top SEE NOTE Anion Gap 12 Estim Creat Clear Calc 110.7 Estimated GFR > 60 POC Glucose 94 Random Glucose 92 Calcium 8.2 L Assessment and Plan (1) E coli bacteremia: Status: Inactive (2) Enteritis: Status: Acute Plan 83-year-old male with a history of diabetes mellitus, hypertension, anemia, diabetic polyneuropathy, chronic venous stasis, htn admitted for further management of severe sepsis due to enteritis with symptomatic cholelithiasis and suspected evolving pneumonia Severe sepsis due to enteritis Sepsis resolved diet advance, but not tolerating, downgraded back to full liquids Completed course of Zosyn, will d/c cultures negative to date Gi following surgery following - rec repeat CT scan with po contrast - relatively unchanged +cologaurd outpatient follow up with GI H/H stable cholelithiasis No evidence of acute cholecystitis Seen by surgery, no plan for cholecystectomy repeat LFTs normal Acute hypotension resolved on admission, r/t severe sepsis normotensive as present hold metoprolol Suspected evolving pneumonia pneumonitis on cxr , ?aspiration in setting of recurrent vomiting Completed course of Zosyn cultures negative no hypoxia, no respiratory symptoms at this time incentive spirometry Acute UTI Urine culture greater than 100,000 mixed bacterial kamila Blood cultures negative Non insulin dependent type 2 diabetes ?diet controlled, no meds on med rec BS controlled lispro correctional scale Acute lactic acidosis Resolved Lovenox DNR DNI dispo - PT rec STR when medically ready for discharge Requires ongoing hospitalization for management of enteritis, further work up for abdominal pain and nausea, unable to tolerate PO intake Quality Stroke Does the patient have a stroke diagnosis?: No VTE Prior VTE?: No VTE Risk Level:: Medical - moderate - high VTE Device Contraindication: Treatment Not Indicated VTE Drug Contraindication: N/A - Med Ordered
[2024-03-14 16:36] LABS: Glucose, Whole Blood 105 mg/dL (60-115)
[2024-03-14 19:50] VITALS: BP 123/59; PULSE 57; RESP 18; TEMP 36.3; O2SAT 94
[2024-03-14] MEDS: Enoxaparin Sodium 40 MG/0.4 ML SYRINGE SUBCUT (21:00)
[2024-03-15] VITALS: BP 151/66; PULSE 62; RESP 18; TEMP 36.4; O2SAT 94
[2024-03-15] MEDS: 0.9 % Sodium Chloride Flush 3 ML SYRINGE IVFLUSH ×3 (00:12→17:07)
[2024-03-15 00:19] LABS: Glucose, Whole Blood 80 mg/dL (60-115)
[2024-03-15 03:22] VITALS: BP 103/61; PULSE 54; RESP 18; TEMP 36.4; O2SAT 95
[2024-03-15 06:08] LABS: Glucose, Whole Blood 93 mg/dL (60-115)
[2024-03-15 07:17] VITALS: BP 141/65; PULSE 63; RESP 20; TEMP 36.6; O2SAT 95
[2024-03-15 08:07] LABS: Hematocrit 35.6 % (42.0-52.0); Hemoglobin 12.5 g/dl (14.0-18.0); Mean Corpuscular HGB Conc 35.1 g/dl (31.0-36.0); Mean Corpuscular Hemoglobin 32.4 pg (27.0-33.0); Mean Corpuscular Volume 92.2 fL (80.0-98.0); Mean Platelet Volume 8.2 fL (9.4-12.4); Platelet Count 160 X10*3/uL (160-400); Red Blood Count 3.86 X10*6/uL (4.60-5.80); White Blood Count 9.9 X10*3/uL (4.8-10.8)
[2024-03-15 08:16] LABS: Anion Gap 10 (12-20); Blood Urea Nitrogen 5 mg/dL (9-16); Calcium 8.3 mg/dL (8.4-10.2); Carbon Dioxide 32 mmol/L (22-29); Chloride 106 mmol/L (96-108); Creatinine Clr Calc Pharmacy 118.1; Estimated Glomerular Filt Rate > 60; Glucose Random 106 mg/dL (60-115); Potassium 3.5 mmol/L (3.3-5.1); Sodium 144 mmol/L (135-145)
[2024-03-15] MEDS: Escitalopram Oxalate 20 MG TABLET PO (09:32)
[2024-03-15] MEDS: Folic Acid 1 MG TABLET PO (09:32)
[2024-03-15 09:57] LABS: Glucose, Whole Blood 122 mg/dL (60-115)
--- NOTE | 2024-03-15 10:56 | PC.NURSE ---
Patient alert and oriented , anxious, agitated abrahan hands tremors, reported some halucinations , CIWA 18 , medicated with Lorazepam 1 mg po PRN
[2024-03-15 11:05] VITALS: BP 135/62; PULSE 70; RESP 18; TEMP 36.3; O2SAT 96
--- NOTE | 2024-03-15 12:46 | P.PNIM_ITS ---
Subjective Subjective Date of Service: 03/15/24 Interval History: seen and examined this morning follow up for enteritis was able to eat a little breakfast this am no abdominal pain Review of Systems Review of Systems: Yes all other systems are reviewed and are negative Constitutional Constitutional: Denies chills and Denies fever(s) Cardiovascular Cardiovascular: Denies chest pain and Denies dyspnea Respiratory Respiratory: Denies dyspnea Gastrointestinal Gastrointestinal: Denies abdominal pain and Denies nausea Physical Exam 2 Vital Signs: Vital Signs: Last Vital Signs Temp 97.4 F 03/15/24 11:05 Pulse 70 03/15/24 11:05 Resp 18 03/15/24 11:05 BP 135/62 03/15/24 11:05 Pulse Ox 96 03/15/24 11:05 O2 Del Method Room Air 03/15/24 11:05 BMI result Body Mass Index 32.1 Const: Other: frail General: cooperative, comfortable, alert and awake Nutritional Appearance: average body habitus Orientation/consciousness: patient oriented x3 Resp: Effort & Inspection: normal respiratory effort, able to speak in complete sentences, no respiratory distress and no use of accessory muscles Cardio: Rate: regular rate GI: Other: no guarding, no rebound Inspection: No distended Palpation (GI): Soft to palpation and nontender Skin: Other: chronic venous stasis skin changes lower legs r>L Neuro: General: patient oriented x3, moves all extremities and CN's II-XI intact bilaterally Objective Data Active Medications Acetaminophen (Acetaminophen 325 Mg Tablet) 650 mg PO Q6H PRN PRN Reason: Pain, Mild (Pain Scale 1-3), fever or headache Calcium Carbonate (Calcium Carbonate 750 Mg Tab.Chew) 750 mg PO Q4H PRN PRN Reason: Heartburn Enoxaparin Sodium (Enoxaparin Sodium 40 Mg/0.4 Ml Syringe) 40 mg SUBCUT Q24H [facility] Last Admin: 03/14/24 21:00 Dose: 40 mg Documented By: TI Escitalopram Oxalate (Escitalopram Oxalate 20 Mg Tablet) 20 mg PO DAILY [facility] Last Admin: 03/15/24 09:32 Dose: 20 mg Documented By: MARY Folic Acid (Folic Acid 1 Mg Tablet) 1 mg PO DAILY [facility] Last Admin: 03/15/24 09:32 Dose: 1 mg Documented By: MARY Glucose (Glucose Gel 15 Gm Gel..Gram.) 15 gm PO Q15M PRN; Protocol PRN Reason: per Hypoglycemia Standing Ord. Last Admin: 03/10/24 16:15 Dose: 15 gm Documented By: KAYLIN Dextrose (D10) 250 mls @ 750 mls/hr IV Q15M PRN; Protocol PRN Reason: per Hypoglycemia Standing Ord. Insulin Human Lispro (Insulin Lispro 100 Unit/Ml 3 Ml Vial) 0 unit SUBCUT Q6H [facility]; Protocol Last Admin: 03/15/24 10:09 Dose: Not Given Documented By: MARY Non-Admin Reason: No Insulin Coverage Magnesium Hydroxide (Milk Of Magnesia 30 Ml Oral.Susp) 30 ml PO DAILY PRN PRN Reason: Constipation Melatonin (Melatonin 3 Mg Tablet) 6 mg PO BEDTIME PRN PRN Reason: Insomnia Ondansetron HCl (Ondansetron Hcl 4 Mg/2 Ml Vial) 4 mg IVPUSH Q6H PRN PRN Reason: Nausea and Vomiting Last Admin: 03/13/24 09:04 Dose: 4 mg Documented By: FRANK Sodium Chloride (0.9 % Sodium Chloride Flush 3 Ml Syringe) [facility] Last Admin: 03/15/24 09:32 Dose: 3 ml Documented By: MARY Labs 03/15/24 07:50 03/15/24 07:50 Labs: Laboratory Results - last 24 hr 03/14/24 03/15/24 03/15/24 16:32 00:16 06:02 MCV MCH MCHC RDW Plt Count MPV Absolute Nucleated RBC Nucleated RBC % (auto) Anion Gap Estim Creat Clear Calc Estimated GFR POC Glucose 105 80 93 Random Glucose Calcium 03/15/24 03/15/24 07:50 09:53 MCV 92.2 MCH 32.4 MCHC 35.1 RDW 14.0 Plt Count 160 MPV 8.2 L Absolute Nucleated RBC 0.000 Nucleated RBC % (auto) 0.0 Anion Gap 10 L Estim Creat Clear Calc 118.1 Estimated GFR > 60 POC Glucose 122 H Random Glucose 106 Calcium 8.3 L Assessment and Plan (1) Enteritis: Status: Acute Plan 83-year-old male with a history of diabetes mellitus, hypertension, anemia, diabetic polyneuropathy, chronic venous stasis, htn admitted for further management of severe sepsis due to enteritis with symptomatic cholelithiasis and suspected evolving pneumonia Severe sepsis due to enteritis Sepsis resolved diet advance, but not tolerating, downgraded back to full liquids. today was able to tolerate small amount of breakfast, will add ensure; advance to bland diet in am if no N/V Completed course of Zosyn, will d/c cultures negative to date GI following surgery following - rec repeat CT scan with po contrast - relatively unchanged +cologaurd outpatient follow up with GI H/H stable cholelithiasis No evidence of acute cholecystitis Seen by surgery, no plan for cholecystectomy repeat LFTs normal Acute hypotension resolved on admission, r/t severe sepsis normotensive as present hold metoprolol Suspected evolving pneumonia pneumonitis on cxr , ?aspiration in setting of recurrent vomiting Completed course of Zosyn cultures negative no hypoxia, no respiratory symptoms at this time incentive spirometry Acute UTI Urine culture greater than 100,000 mixed bacterial kamila Blood cultures negative Non insulin dependent type 2 diabetes ?diet controlled, no meds on med rec BS controlled lispro correctional scale Acute lactic acidosis Resolved Lovenox DNR DNI dispo - PT rec STR when medically ready for discharge Requires ongoing hospitalization for management of enteritis, management of nausea, diet advancement, safe disposition Quality Stroke Does the patient have a stroke diagnosis?: No VTE Prior VTE?: No VTE Risk Level:: Medical - moderate - high VTE Device Contraindication: Treatment Not Indicated VTE Drug Contraindication: N/A - Med Ordered
[2024-03-15 16:00] VITALS: BP 141/64; PULSE 67; RESP 18; TEMP 36.1; O2SAT 96
[2024-03-15 16:34] LABS: Glucose, Whole Blood 119 mg/dL (60-115)
[2024-03-15] MEDS: Enoxaparin Sodium 40 MG/0.4 ML SYRINGE SUBCUT (19:49)
[2024-03-15 20:00] VITALS: BP 132/59; PULSE 84; RESP 18; TEMP 36.2; O2SAT 97
[2024-03-15 21:06] LABS: Glucose, Whole Blood 151 mg/dL (60-115)
[2024-03-15] MEDS: Insulin Lispro 100 UNIT/ML 3 ML VIAL SUBCUT (21:27)
[2024-03-16] VITALS: BP 165/74; PULSE 89; RESP 16; TEMP 36.2; O2SAT 87
[2024-03-16 04:00] VITALS: BP 129/63; PULSE 72; RESP 16; TEMP 36.7; O2SAT 95
[2024-03-16 04:08] LABS: Glucose, Whole Blood 92 mg/dL (60-115)
[2024-03-16 07:23] VITALS: BP 136/78; PULSE 79; RESP 18; TEMP 36.1; O2SAT 97
[2024-03-16] MEDS: Escitalopram Oxalate 20 MG TABLET PO (07:59)
[2024-03-16] MEDS: Folic Acid 1 MG TABLET PO (07:59)
[2024-03-16] MEDS: 0.9 % Sodium Chloride Flush 3 ML SYRINGE IVFLUSH ×2 (08:03→16:42)
[2024-03-16 10:12] LABS: Glucose, Whole Blood 137 mg/dL (60-115)
--- NOTE | 2024-03-16 10:23 | HO.PM.IMPN ---
Subjective Subjective Date of Service: 03/16/24 Interval History: seen and examined this morning follow up for enteritis no abdominal pain Review of Systems Review of Systems: Yes all other systems are reviewed and are negative Constitutional Constitutional: Denies chills and Denies fever(s) Cardiovascular Cardiovascular: Denies chest pain and Denies dyspnea Respiratory Respiratory: Denies dyspnea Gastrointestinal Gastrointestinal: Denies abdominal pain and Denies nausea Physical Exam Vital Signs: Vital Signs: Last Vital Signs Temp 96.9 F 03/16/24 07:23 Pulse 79 03/16/24 07:23 Resp 18 03/16/24 07:23 BP 136/78 03/16/24 07:23 Pulse Ox 97 03/16/24 07:23 O2 Del Method Room Air 03/16/24 07:23 BMI result Body Mass Index 32.1 Appearing in no acute distress lung sounds are clear to auscultation heart regular rate rhythm, clear S1, S2 positive bowel sounds, abdomen is soft, nontender neuro patient is alert x3, no focal deficits Objective Data Active Medications Acetaminophen (Acetaminophen 325 Mg Tablet) 650 mg PO Q6H PRN PRN Reason: Pain, Mild (Pain Scale 1-3), fever or headache Calcium Carbonate (Calcium Carbonate 750 Mg Tab.Chew) 750 mg PO Q4H PRN PRN Reason: Heartburn Enoxaparin Sodium (Enoxaparin Sodium 40 Mg/0.4 Ml Syringe) 40 mg SUBCUT Q24H [facility] Last Admin: 03/15/24 19:49 Dose: 40 mg Documented By: AMBROCIO Escitalopram Oxalate (Escitalopram Oxalate 20 Mg Tablet) 20 mg PO DAILY [facility] Last Admin: 03/16/24 07:59 Dose: 20 mg Documented By: ALINE Folic Acid (Folic Acid 1 Mg Tablet) 1 mg PO DAILY [facility] Last Admin: 03/16/24 07:59 Dose: 1 mg Documented By: ALINE Glucose (Glucose Gel 15 Gm Gel..Gram.) 15 gm PO Q15M PRN; Protocol PRN Reason: per Hypoglycemia Standing Ord. Last Admin: 03/10/24 16:15 Dose: 15 gm Documented By: KAYLIN Dextrose (D10) 250 mls @ 750 mls/hr IV Q15M PRN; Protocol PRN Reason: per Hypoglycemia Standing Ord. Insulin Human Lispro (Insulin Lispro 100 Unit/Ml 3 Ml Vial) 0 unit SUBCUT Q6H [facility]; Protocol Last Admin: 03/16/24 10:15 Dose: Not Given Documented By: ALINE Non-Admin Reason: No Insulin Coverage Magnesium Hydroxide (Milk Of Magnesia 30 Ml Oral.Susp) 30 ml PO DAILY PRN PRN Reason: Constipation Melatonin (Melatonin 3 Mg Tablet) 6 mg PO BEDTIME PRN PRN Reason: Insomnia Ondansetron HCl (Ondansetron Hcl 4 Mg/2 Ml Vial) 4 mg IVPUSH Q6H PRN PRN Reason: Nausea and Vomiting Last Admin: 03/13/24 09:04 Dose: 4 mg Documented By: FRANK Sodium Chloride (0.9 % Sodium Chloride Flush 3 Ml Syringe) 3 ml IVFLUSH QSHIFT [facility] Last Admin: 03/16/24 08:03 Dose: 3 ml Documented By: ALINE Labs 03/15/24 07:50 03/15/24 07:50 Labs: Laboratory Results - last 24 hr 03/15/24 03/15/24 03/16/24 16:24 21:03 04:04 POC Glucose 119 H 151 H 92 03/16/24 10:08 POC Glucose 137 H Assessment and Plan (1) Enteritis: Status: Acute Plan 83-year-old male with a history of diabetes mellitus, hypertension, anemia, diabetic polyneuropathy, chronic venous stasis, htn admitted for further management of severe sepsis due to enteritis with symptomatic cholelithiasis and suspected evolving pneumonia Severe sepsis due to enteritis Sepsis resolved Completed course of Zosyn cultures negative to date GI following surgery following - rec repeat CT scan with po contrast - relatively unchanged advance to bland diet +cologaurd outpatient follow up with GI H/H stable cholelithiasis No evidence of acute cholecystitis Seen by surgery, no plan for cholecystectomy repeat LFTs normal Acute hypotension resolved on admission, r/t severe sepsis normotensive as present hold metoprolol Suspected evolving pneumonia pneumonitis on cxr , ?aspiration in setting of recurrent vomiting Completed course of Zosyn cultures negative no hypoxia, no respiratory symptoms at this time incentive spirometry Acute UTI Urine culture greater than 100,000 mixed bacterial kamila Blood cultures negative Non insulin dependent type 2 diabetes ?diet controlled, no meds on med rec BS controlled lispro correctional scale Acute lactic acidosis Resolved Lovenox Attending Dr. Barkley DNR DNI dispo - PT rec STR when medically ready for discharge Requires ongoing hospitalization for management of enteritis, management of nausea, diet advancement, safe disposition Quality Stroke Does the patient have a stroke diagnosis?: No VTE Prior VTE?: No VTE Risk Level:: Medical - moderate - high VTE Device Contraindication: Treatment Not Indicated VTE Drug Contraindication: N/A - Med Ordered
[2024-03-16 11:32] VITALS: BP 133/66; PULSE 68; RESP 16; TEMP 36; O2SAT 97
--- NOTE | 2024-03-16 14:41 | MHC.CM.PN ---
Cristal tamayo continues to be pending for pt for STR at [facility].
[2024-03-16 16:00] VITALS: BP 143/67; PULSE 91; RESP 16; TEMP 36.1; O2SAT 96
[2024-03-16 16:45] LABS: Glucose, Whole Blood 119 mg/dL (60-115)
[2024-03-16 20:00] VITALS: BP 157/72; PULSE 97; RESP 20; TEMP 36.7; O2SAT 93
[2024-03-16] MEDS: Enoxaparin Sodium 40 MG/0.4 ML SYRINGE SUBCUT (20:20)
[2024-03-16 21:37] LABS: Glucose, Whole Blood 128 mg/dL (60-115)
[2024-03-17] VITALS: BP 147/73; PULSE 97; RESP 20; TEMP 36.6; O2SAT 94
[2024-03-17] MEDS: 0.9 % Sodium Chloride Flush 3 ML SYRINGE IVFLUSH ×2 (00:51→08:04)
[2024-03-17 04:00] VITALS: BP 153/69; PULSE 89; RESP 20; TEMP 36.7; O2SAT 95
[2024-03-17 04:45] LABS: Glucose, Whole Blood 105 mg/dL (60-115)
[2024-03-17 08:00] VITALS: BP 122/66; PULSE 96; RESP 18; TEMP 36.4; O2SAT 98
[2024-03-17] MEDS: Folic Acid 1 MG TABLET PO (08:03)
[2024-03-17] MEDS: Escitalopram Oxalate 20 MG TABLET PO (08:03)
[2024-03-17] MEDS: Acetaminophen 325 MG TABLET 650 MG PO (08:03)
[2024-03-17 09:57] LABS: Glucose, Whole Blood 129 mg/dL (60-115)
[2024-03-17 12:00] VITALS: BP 137/66; PULSE 95; RESP 18; TEMP 36.6; O2SAT 94
--- NOTE | 2024-03-17 12:01 | P.PNIM_ITS ---
Subjective Subjective Date of Service: 03/17/24 Interval History: seen and examined this morning follow up for enteritis no abdominal pain Review of Systems Review of Systems: Yes all other systems are reviewed and are negative Constitutional Constitutional: Denies chills and Denies fever(s) Cardiovascular Cardiovascular: Denies chest pain and Denies dyspnea Respiratory Respiratory: Denies dyspnea Gastrointestinal Gastrointestinal: Denies abdominal pain and Denies nausea Physical Exam 2 Vital Signs: Vital Signs: Last Vital Signs Temp 97.5 F 03/17/24 08:00 Pulse 96 03/17/24 08:00 Resp 18 03/17/24 08:00 BP 122/66 03/17/24 08:00 Pulse Ox 98 03/17/24 08:00 O2 Del Method Room Air 03/17/24 08:00 BMI result Body Mass Index 32.1 Appearing in no acute distress head is normocephalic atraumatic eyes pupils are PERRLA sclera is anicteric mouth throat mucous membranes are intact and moist neck is supple no lymphadenopathy, no JVD noted lung sounds are clear to auscultation heart regular rate rhythm, clear S1, S2 positive bowel sounds, abdomen is soft, nontender neuro patient is alert x3, no focal deficits Objective Data Active Medications Acetaminophen (Acetaminophen 325 Mg Tablet) 650 mg PO Q6H PRN PRN Reason: Pain, Mild (Pain Scale 1-3), fever or headache Last Admin: 03/17/24 08:03 Dose: 650 mg Documented By: ABISAI Calcium Carbonate (Calcium Carbonate 750 Mg Tab.Chew) 750 mg PO Q4H PRN PRN Reason: Heartburn Enoxaparin Sodium (Enoxaparin Sodium 40 Mg/0.4 Ml Syringe) 40 mg SUBCUT Q24H [facility] Last Admin: 03/16/24 20:20 Dose: 40 mg Documented By: AMBROCIO Escitalopram Oxalate (Escitalopram Oxalate 20 Mg Tablet) 20 mg PO DAILY [facility] Last Admin: 03/17/24 08:03 Dose: 20 mg Documented By: ABISAI Folic Acid (Folic Acid 1 Mg Tablet) 1 mg PO DAILY [facility] Last Admin: 03/17/24 08:03 Dose: 1 mg Documented By: ABISAI Glucose (Glucose Gel 15 Gm Gel..Gram.) 15 gm PO Q15M PRN; Protocol PRN Reason: per Hypoglycemia Standing Ord. Last Admin: 03/10/24 16:15 Dose: 15 gm Documented By: KAYLIN Dextrose (D10) 250 mls @ 750 mls/hr IV Q15M PRN; Protocol PRN Reason: per Hypoglycemia Standing Ord. Insulin Human Lispro (Insulin Lispro 100 Unit/Ml 3 Ml Vial) 0 unit SUBCUT Q6H [facility]; Protocol Last Admin: 03/17/24 10:32 Dose: Not Given Documented By: ABISAI Non-Admin Reason: No Insulin Coverage Magnesium Hydroxide (Milk Of Magnesia 30 Ml Oral.Susp) 30 ml PO DAILY PRN PRN Reason: Constipation Melatonin (Melatonin 3 Mg Tablet) 6 mg PO BEDTIME PRN PRN Reason: Insomnia Ondansetron HCl (Ondansetron Hcl 4 Mg/2 Ml Vial) 4 mg IVPUSH Q6H PRN PRN Reason: Nausea and Vomiting Last Admin: 03/13/24 09:04 Dose: 4 mg Documented By: FRANK Sodium Chloride (0.9 % Sodium Chloride Flush 3 Ml Syringe) [facility] Last Admin: 03/17/24 08:04 Dose: 3 ml Documented By: ABISAI Labs 03/15/24 07:50 03/15/24 07:50 Labs: Laboratory Results - last 24 hr 03/16/24 03/16/24 03/17/24 16:30 21:20 04:41 POC Glucose 119 H 128 H 105 03/17/24 09:53 POC Glucose 129 H Assessment and Plan (1) Enteritis: Status: Acute Plan 83-year-old male with a history of diabetes mellitus, hypertension, anemia, diabetic polyneuropathy, chronic venous stasis, htn admitted for further management of severe sepsis due to enteritis with symptomatic cholelithiasis and suspected evolving pneumonia Severe sepsis due to enteritis Sepsis resolved Completed course of Zosyn cultures negative to date GI following surgery following - rec repeat CT scan with po contrast - relatively unchanged advance to bland diet +cologaurd outpatient follow up with GI H/H stable cholelithiasis No evidence of acute cholecystitis Seen by surgery, no plan for cholecystectomy repeat LFTs normal Acute hypotension resolved on admission, r/t severe sepsis normotensive as present hold metoprolol Suspected evolving pneumonia pneumonitis on cxr , ?aspiration in setting of recurrent vomiting Completed course of Zosyn cultures negative no hypoxia, no respiratory symptoms at this time incentive spirometry Acute UTI Urine culture greater than 100,000 mixed bacterial kamila Blood cultures negative Non insulin dependent type 2 diabetes ?diet controlled, no meds on med rec BS controlled lispro correctional scale Acute lactic acidosis Resolved Lovenox Attending Dr. Barkley DNR DNI dispo - PT rec STR when medically ready for discharge Requires ongoing hospitalization for management of enteritis, management of nausea, diet advancement, safe disposition Quality Stroke Does the patient have a stroke diagnosis?: No VTE Prior VTE?: No VTE Risk Level:: Medical - moderate - high VTE Device Contraindication: Treatment Not Indicated VTE Drug Contraindication: N/A - Med Ordered
--- NOTE | 2024-03-17 12:06 | P.DS_ITS ---
DS: Providers Provider Date of Service: 03/17/24 Date of admission: 03/07/24 19:54 Primary care physician: Krystin Balbuena MD Consults: 03/08/24 16:29 Consult to General Surgery Routine Consulting Provider[place] [facility] [place] Reason for consultation: impacted gallstone 03/09/24 14:02 Consult to Wound Care Routine Reason for consultation: Diffuse bruising to buttock/ scrotum/ post. thighs, ? DTI Has provider been notified: Yes 03/10/24 07:26 Consult to Gastroenterology Routine Consulting Provider: Adan Martínez Reason for consultation: Enteritis Has provider been notified: Yes DS: Diagnosis Discharge Diagnosis (1) Enteritis: Status: Acute DS: Summary Hospital Course Hospital Course: History and physical as per admitting provider. 83-year-old male with a history of diabetes mellitus, hypertension, anemia, diabetic polyneuropathy, chronic venous stasis, htn presented to the ED earlier today for evaluation of multiple symptoms. Reports for the last two days has had constant nausea with recurrent vomiting. Initially vomitus was yellow, but now green. He has had RUQ and occassional RLQ pain. Has not tolerated much PO and has little appetite. reports chronic nighttime productive cough, but last night cough worsened with increase in yellow sputum production. He is incontinent of urine and feces at baseline and reports decreased urine output with dysuria and has not had a BM in 2 days. No reported fevers, chills, st, congestion, diarrhea, hematemesis, melena, hematachezia, lightheadedness, palpitations, wheezing or chest pain. On arrival was hypotensive with improvement in BP to 109/59 on admission followign 3L IVF. Initially febrile to 100, but vitals otherwise wnl. There is a leukocytosis of 21.3 with 23% bandemia. Renal function baseline, lytes wnl. Initial lactic acid 3.7, repeat 4.6. Total bili 1.4, hepatic function otherwise wnl. Trops wnls, BNP 122. Lipase 6. UA with elevated SG and +nitrities with 1+ bacteria. No leuks or wbcs. Negative for covid, flu, rsv. CXR shows prominent bialteral parahilar interstitial markings with question of pneumonitis and edema. CT abd/pelvis shows multiple dilated small bowel loops mid abd with distal small bowel wall thickening suspicious for enteritis. There are also impacted gallstones, small bilateral pelural effusions with underlying atelectasis, prostate enlargement. In the ED, given tylenol, 3L IV LR, 4.5g z osyn. He will be admitted for further management of severe sepsis secondary to enteritis with symptomatic cholelithiasis. 83-year-old man treated for severe sepsis secondary to enteritis, completed course of IV Zosyn. He was seen evaluated by Gastroenterology with no recommendation for any surgical intervention. His diet was advanced and at this point he is eating solid bland diet. He did have a positive Cologuard and therefore will need to follow up with GI outpatient. He was noted to have cholelithiasis with no evidence of acute cholecystitis, seen evaluated by General surgery with no plan for cholecystectomy. Due to the severe sepsis he was also noted to have hypotension, his metoprolol was on hold but blood pressure has normalized and he can continue his metoprolol. He was also noted to have suspected pneumonia possible aspiration and treated with the Zosyn, cultures have remained negative, he had no hypoxia or other respiratory symptoms. Also treated for UTI and urine culture was mixed. Plan is to transfer to short-term rehab for further care. Diabetes mellitus type 2. Continue home medications Mental health continue home medications Iron-deficiency anemia. Continue iron supplementation Time Attestation Discharge Coordination Time (in mins): 35 Quality: Safe Use of Opioids Does Pt have an Active Cancer Diagnosis on the Problem List?: No Quality: Stroke Does the patient have a stroke diagnosis?: No Physical Exam Vital Signs: Vital Signs: Last Vital Signs Temp 97.8 F 03/17/24 12:00 Pulse 95 03/17/24 12:00 Resp 18 03/17/24 12:00 BP 137/66 03/17/24 12:00 Pulse Ox 94 03/17/24 12:00 O2 Del Method Room Air 03/17/24 12:00 BMI result Body Mass Index 32.1 Appearing in no acute distress head is normocephalic atraumatic eyes pupils are PERRLA sclera is anicteric mouth throat mucous membranes are intact and moist neck is supple no lymphadenopathy, no JVD noted lung sounds are clear to auscultation heart regular rate rhythm, clear S1, S2 positive bowel sounds, abdomen is soft, nontender neuro patient is alert x3, no focal deficits DS: Data Data Completed and Pending Labs on day of discharge: Laboratory Results - last 24 hr 03/16/24 03/16/24 03/17/24 16:30 21:20 04:41 POC Glucose 119 H 128 H 105 03/17/24 09:53 POC Glucose 129 H Discharge Plan Discharge Anticipated Discharge Date/Time: 03/17/24 12:04 Patient Disposition: Xfer SNF Discharge Diagnosis: Severe sepsis Enteritis Hypotension Pneumonia UTI Referrals: [facility] [Outside] - 1 Week Krystin Balbuena MD [Primary Care Provider] - 1 Week Discharge Medications: Continued cyanocobalamin (vitamin B-12) 1,000 mcg Lozenge 1,000 mcg SUBLINGUAL DAILY Qty: 90 4RF metoprolol succinate 25 mg tablet extended release 24 hr 25 mg PO QAM folic acid 1 mg tablet 1 mg PO QAM cholecalciferol (vitamin D3) 25 mcg (1,000 unit) capsule 25 mcg PO QAM escitalopram oxalate 20 mg tablet 20 mg PO QAM ferrous sulfate 325 mg (65 mg iron) tablet 325 mg PO DAILY ascorbic acid (vitamin C) [Vitamin C] 500 mg capsule, extended release 500 mg PO DAILY Discharge Orders: Discharge Order (Routine); Ordered 03/17/24 Ordered By: Kari Colón Diet: Advance to usual diet Activity on Discharge: As tolerated Stand Alone Forms: Patient Portal Discharge page Print Language: Indian Care Plan Goals: Transfer to short-term rehab Health Concerns: Severe sepsis Enteritis Hypotension Pneumonia UTI Plan of Treatment: Follow-up with primary care provider as needed Take all medications as prescribed Assessment: See discharge summary
--- NOTE | 2024-03-17 12:36 | MHC.CM.PN ---
Second IMM given 03/17. Insurance auth received today for pt to go to [facility], pt will transport there via BLS/[place] at 5pm. Pt updated and in agreement with discharge plan, and per pts request this CM called pts Filomena to update her as well.
[2024-03-17 16:00] VITALS: BP 147/68; PULSE 79; RESP 16; TEMP 36.8; O2SAT 94
[2024-03-17 16:14] LABS: Glucose, Whole Blood 96 mg/dL (60-115)
== END 2024-03-17 18:26 | disposition skilled nursing facility (03) | DRG 871 ==
LOC: HO.ED 19:26 → HO.EDOVER 20:05 → HO.IMC 23:28
PROVIDERS: Hospitalist; Physician Assistant Medical; Admitting Provider Physician Assistant; Emergency Provider Emergency Medicine Emergency Medical Services; PCP Internal Medicine; Visit Provider Nurse Practitioner Acute Care
DX: A41.9 Sepsis, unspecified organism (principal); J69.0 Pneumonitis due to inhalation of food and vomit; N39.0 Urinary tract infection, site not specified; E87.21 Acute metabolic acidosis; J98.11 Atelectasis; J91.8 Pleural effusion in other conditions classified elsewhere; R65.20 Severe sepsis without septic shock; K52.9 Noninfective gastroenteritis and colitis, unspecified; D50.9 Iron deficiency anemia, unspecified; Z66 Do not resuscitate; E66.01 Morbid (severe) obesity due to excess calories; R19.5 Other fecal abnormalities; I87.8 Other specified disorders of veins; Z68.32 Body mass index [BMI] 32.0-32.9, adult; I10 Essential (primary) hypertension; E87.6 Hypokalemia; E11.42 Type 2 diabetes mellitus with diabetic polyneuropathy; K80.20 Calculus of gallbladder without cholecystitis without obstruction; Z87.891 Personal history of nicotine dependence; Z79.899 Other long term (current) drug therapy
CPT/HCPCS: 0241U; 36415; 71045; 74176; 74177; 76705; 78226; 80048; 80053; 80076; 81001; 82947; 83605; 83690; 83880; 84484; 85007; 85025; 85027; 87040; 87086; 93005; 97161; 97530; 99285; A9537; J1650; J2405; J2543; J7120; P9047; Q9967

== ENCOUNTER → 2024-03-07 19:54 | Outpatient (BNV) | payer MEDICARE, SELFPAY | PROVIDERS: Admitting Provider Physician Assistant; Emergency Provider Emergency Medicine Emergency Medical Services; PCP Internal Medicine; Visit Provider Surgery | DX: K80.20 Calculus of gallbladder without cholecystitis without obstruction (principal) | CPT/HCPCS: 99223; 99232 ==

== ENCOUNTER → 2024-03-07 19:54 | Outpatient (BNV) | payer MEDICARE, SELFPAY | PROVIDERS: Admitting Provider Physician Assistant; Emergency Provider Emergency Medicine Emergency Medical Services; PCP Internal Medicine; Visit Provider Physician Assistant | DX: K52.9 Noninfective gastroenteritis and colitis, unspecified (principal) | CPT/HCPCS: 99223; 99232; 99239 ==

== ENCOUNTER 2024-03-26 07:20 | Outpatient (REF) | payer MEDICARE, SELFPAY | END 2024-03-26 07:21 | disposition home or self-care (01) | LOC: HO.LHD 07:20 | PROVIDERS: Visit Provider Internal Medicine Medical Oncology | DX: Z13.89 Encounter for screening for other disorder (principal) ==

== ENCOUNTER 2024-04-23 07:33 | Outpatient (REF) | payer MEDICARE, SELFPAY ==
[2024-04-23 11:04] LABS: MANUAL DIFF FLAG NO
[2024-04-23 11:13] LABS: Basophils Absolute Auto 0.1 X10*3/uL (0.0-0.2); Basophils Percent Auto 0.6 % (0-2); Eosinophils Absolute Auto 0.2 X10*3/uL (0.0-0.4); Eosinophils Percent Auto 2.3 % (0-4); Hematocrit 34.3 % (42.0-52.0); Hemoglobin 11.7 g/dl (14.0-18.0); Imm Gran Abs Auto 0.02 X10*3/uL (0.00-0.03); Imm Gran Pct Auto 0.3 % (0.0-0.4); Lymphocytes Absolute Auto 1.4 X10*3/uL (1.2-4.9); Lymphocytes Percent Auto 17.8 % (20-40); Mean Corpuscular HGB Conc 34.1 g/dl (31.0-36.0); Mean Corpuscular Hemoglobin 33.5 pg (27.0-33.0); Mean Corpuscular Volume 98.3 fL (80.0-98.0); Mean Platelet Volume 8.6 fL (9.4-12.4); Monocytes Absolute Auto 0.8 X10*3/uL (0.1-1.2); Monocytes Percent Auto 9.7 % (2-11); Neutrophils Absolute Auto 5.3 x10*3/uL (2.0-8.3); Neutrophils Percent Auto 69.3 % (45-73); Platelet Count 207 X10*3/uL (160-400); Red Blood Count 3.49 X10*6/uL (4.60-5.80); Red Cell Distribution Width 14.6 % (11.0-16.0); White Blood Count 7.7 X10*3/uL (4.8-10.8)
[2024-04-23 11:29] LABS: Alanine Aminotransferase 6 U/L (0-40); Albumin Level 2.5 g/dL (3.5-5.0); Alkaline Phosphatase 85 U/L (39-117); Anion Gap 7 (12-20); Aspartate Amino Transferase 19 U/L (5-37); Bilirubin Total 0.6 mg/dL (0.0-1.0); Blood Urea Nitrogen 12 mg/dL (9-16); Calcium 8.4 mg/dL (8.4-10.2); Carbon Dioxide 34 mmol/L (22-29); Chloride 102 mmol/L (96-108); Estimated Glomerular Filt Rate > 60; Glucose Random 133 mg/dL (60-115); Potassium 4.6 mmol/L (3.3-5.1); Sodium 138 mmol/L (135-145); Total Protein 6.1 g/dL (6.5-8.0)
== END 2024-04-23 07:34 | disposition home or self-care (01) ==
LOC: HO.LHD 07:33
PROVIDERS: Visit Provider Internal Medicine Medical Oncology
DX: D64.9 Anemia, unspecified (principal)
CPT/HCPCS: 36415; 80053; 85025

== ENCOUNTER 2024-04-23 08:27 | Outpatient (AMB) | payer MEDICARE, SELFPAY ==
--- NOTE | 2024-04-23 08:33 | MHC.PC.OV ---
Intake Visit Reasons: 2WeekFollowUp -- [facility] [phone] Allergies No Known Allergies [No Known Allergies*] Allergy (Verified 04/23/24 08:33) Medication List - Last Reconciled 04/23/24 by Krystin Balbuena MD ascorbic acid (vitamin C) ER (Vitamin C) 500 mg PO DAILY cholecalciferol (vitamin D3) 25 mcg PO QAM cyanocobalamin (vitamin B-12) 1,000 mcg sublingual DAILY escitalopram oxalate 20 mg PO QAM ferrous sulfate 325 mg PO DAILY folic acid 1 mg PO QAM metoprolol succinate ER 25 mg PO QAM Tobacco use date assessed: 04/23/24 Last assessed Fall Risk: 04/23/24 Dental Screening Dental Screen Date: 04/23/24 Did you have a dental visit in the last 12 months?: Yes Did you have a dental problem in the last 6 months where you did not have access to dental care?: No Was dental information given to patient?: Patient has dentist HPI 2WeekFollowUp -- [facility] [phone] HPI Details UA showed elevated specific gravity and positive nitrite but no leukocytes Patient was negative for COVID flu and RSV Chest x-ray showed bilateral perihilar interstitial markings questionable pneumonitis CT abdomen showed multiple dilated small bowel loops, mid abdomen with distal small-bowel wall thickening suspicious of enteritis They were also impacted gallstones Small bilateral pleural effusions with underlying atelectasis and prostate enlargement. Patient was treated for severe sepsis with IV antibiotic secondary to enteritis and symptomatic cholelithiasis Gastroenterology Dr. Martínez/Dr. Batres team evaluated patient with no recommendation for any surgical intervention. His diet was advanced gradually and he was eating solid food before sending to rehab. Patient does have positive Cologuard and therefore we will be following up with GI as an outpatient. However patient's says that they are aware of it and they have not recommended any further workup. Surgical team evaluated patient but no cholecystectomy was recommended. He is now home and have VNA service coming up We are getting multiple messages from VNA stating that patient is having pain in his feet that is why he is not ambulating However since I know the patient for a while, I know that he is not mobile because of anxiety and also because of risk of fall. This has been happening for a while, patient's has been taking care of him entirely. She tells me that every time he stands up to ambulate by physical therapist he become extremely anxious Due to Care team I have started gabapentin 100 mg b.i.d. to see if his neuropathy symptom improves has been exploring options for patient to be in skilled nursing as it is getting difficult for her to take care of him. 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 Brother No problems noted. Brother No problems noted. Sister No problems noted. Son No problems noted. Son No problems noted. Son No problems noted. Son No problems noted. Daughter No problems noted. Daughter No problems noted. Daughter No problems noted. Social History Household Members: Spouse and Other Household Members Other:: and grandson Housing: House Are you a primary caregiver assisted living to a significant other at home: No Do you presently have visiting nurse or other home services: No Patient Tobacco Use Status: Former Tobacco user Tobacco use type: Cigarette Years Smoked: 15 e-Cigarette/Vaping Use: Never Used Second Hand Smoke Exposure: No Advance Directives Date on File: 03/05/22 service: Yes Current occupational status: retired Current occupational exposures/hazards: No Cognitive needs: No Hearing needs: No Vision needs: No Questionnaire Thrive Questionnaire Date Thrive assessed: 03/08/24 AUDIT C Alcohol Use Questionnaire (AUDIT-C) 1. How often do you have a drink containing alcohol?: Never 2. How many drinks containing alcohol do you have on a typical day when you are drinking?: 1 or 2 3. How often do you have six or more drinks on one occasion?: Never Total Score: 0 Score Reviewed/Action Taken: Yes ELI-7 AMB Questionnaire ELI-7 Date ELI - 7 assessed: 11/19/23 Source: Developed by Drs. Adan Black, Hannah Powell, Marcell Levine and colleagues, with an educational marta from [employer]. Review of Systems Const Denies chills and Denies fever(s) ENT Denies epistaxis and Denies nasal discharge Card Denies chest pain Resp Denies chest congestion, Denies cough and Denies hemoptysis GI Denies nausea Skin/Breast Denies rash Neuro Reports no additional complaints Psych Reports no additional complaints Endo Reports no additional complaints Physical exam (Primary Care) Tobacco/Smoking Status: Tobacco use Status Tobacco use date assessed 04/23/24 04/23/24 08:34 Patient Tobacco Use Status Former Tobacco user 04/23/24 08:34 Tobacco use type Cigarette 04/23/24 08:34 e-Cigarette/Vaping Use Never Used 04/23/24 08:34 Thrive Assessment: Date of Thrive Assessment Date Thrive assessed 03/08/24 04/23/24 08:34 Telehealth Telehealth Telehealth Platform: [facility] Location of provider rendering services: practice address Location of patient: address on file Patient Identification confirmed using: Name, : Yes Telehealth method: video (attempted) Patient verbally consented to treatment: Yes Patient verbally consented to billing insurance company: Yes Patient informed of any privacy concerns related to visit: Yes Coding Level of Care Code Tele Est Pt Level 5 (34267) Diagnoses Hospital discharge follow-up Z09 Gait instability R26.81 Risk for falls Z91.81 Walker as ambulation aid Z99.89 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 type: 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, 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 R26.89 Anxiety, generalized F41.1 Assessment & Plan Assessment & Plan (1) Hospital discharge follow-up: Code(s): Z09 - Encounter for follow-up examination after completed treatment for conditions other than malignant neoplasm Category: Medical (2) Gait instability: Code(s): R26.81 - Unsteadiness on feet Category: Medical (3) Risk for falls: Code(s): Z91.81 - History of falling Category: Medical (4) Walker as ambulation aid: Code(s): Z99.89 - Dependence on other enabling machines and devices Category: Medical (5) Peripheral neuropathy: Comment: resultant gait instability-in wheelchair-can stand and pivot-uses walker at home-chair to bathroom Code(s): G62.9 - Polyneuropathy, unspecified Category: Medical Qualifiers: Peripheral neuropathy type: idiopathic progressive neuropathy Qualified Code(s): G60.3 - Idiopathic progressive neuropathy (6) Diabetes 1.5, managed as type 2: Comment: no Rx at present-PCP monitors-does not check glucose at home Code(s): E13.9 - Other specified diabetes mellitus without complications Category: Medical (7) Multifactorial gait disorder: Comment: can stand and pivot, uses walker occasionally Code(s): R26.89 - Other abnormalities of gait and mobility Category: Medical (8) Anxiety, generalized: Code(s): F41.1 - Generalized anxiety disorder Category: Medical Plan UA showed elevated specific gravity and positive nitrite but no leukocytes Patient was negative for COVID flu and RSV Chest x-ray showed bilateral perihilar interstitial markings questionable pneumonitis CT abdomen showed multiple dilated small bowel loops, mid abdomen with distal small-bowel wall thickening suspicious of enteritis They were also impacted gallstones Small bilateral pleural effusions with underlying atelectasis and prostate enlargement. Patient was treated for severe sepsis with IV antibiotic secondary to enteritis and symptomatic cholelithiasis Gastroenterology Dr. Martínez/Dr. Batres team evaluated patient with no recommendation for any surgical intervention. His diet was advanced gradually and he was eating solid food before sending to rehab. Patient does have positive Cologuard and therefore we will be following up with GI as an outpatient. However patient's says that they are aware of it and they have not recommended any further workup. Surgical team evaluated patient but no cholecystectomy was recommended. He is now home and have VNA service coming up We are getting multiple messages from VNA stating that patient is having pain in his feet that is why he is not ambulating However since I know the patient for a while, I know that he is not mobile because of anxiety and also because of risk of fall. This has been happening for a while, patient's has been taking care of him entirely. She tells me that every time he stands up to ambulate by physical therapist he become extremely anxious Due to Care team I have started gabapentin 100 mg b.i.d. to see if his neuropathy symptom improves has been exploring options for patient to be in skilled nursing as it is getting difficult for her to take care of him. His appetite is at the baseline His last hemoglobin was 12.5, he is on iron, B12 and folic acid supplement through Hematology We will book another visit in 2 weeks to see if gabapentin is helping patient 45 minutes spent in care of this patient including reviewing hospital notes, talking to and patient And coordination care Medications: New gabapentin 100 mg PO BID 30 days 60 caps 0RF
== END 2024-04-23 09:53 | disposition home or self-care (01) ==
LOC: HO.HMCC 08:27
PROVIDERS: PCP Internal Medicine; Visit Provider Internal Medicine
DX: Z09 Encounter for follow-up examination after completed treatment for conditions other than malignant neoplasm (principal); R26.81 Unsteadiness on feet; Z91.81 History of falling; Z99.89 Dependence on other enabling machines and devices; G60.3 Idiopathic progressive neuropathy; E13.9 Other specified diabetes mellitus without complications; R26.89 Other abnormalities of gait and mobility; F41.1 Generalized anxiety disorder

== ENCOUNTER 2024-05-14 08:32 | Outpatient (AMB) | payer MEDICARE, SELFPAY ==
--- NOTE | 2024-05-14 08:46 | A.OFFPC_ITS ---
Intake Visit Reasons: 3 Wk F/U Allergies No Known Allergies [No Known Allergies*] Allergy (Verified 04/23/24 08:33) Medication List - Last Reconciled 05/14/24 by Krystin Balbuena MD ascorbic acid (vitamin C) ER (Vitamin C) 500 mg PO DAILY cholecalciferol (vitamin D3) 25 mcg PO QAM cyanocobalamin (vitamin B-12) 1,000 mcg sublingual DAILY escitalopram oxalate 20 mg PO QAM ferrous sulfate 325 mg PO DAILY folic acid 1 mg PO QAM gabapentin 100 mg PO BID 30 days metoprolol succinate ER 25 mg PO QAM Tobacco use date assessed: 04/23/24 Dental Screening Dental Screen Date: 04/23/24 HPI 3 Wk F/U HPI Details Patient is 83-year-old gentleman this is a telemedicine visit He was started on gabapentin 200 mg last visit for peripheral neuropathy When patient was reluctant to do physical therapy due to pain He is doing much better as per his I am increasing the dose to 300 mg b.i.d. 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 Brother No problems noted. Brother No problems noted. Sister No problems noted. Son No problems noted. Son No problems noted. Son No problems noted. Son No problems noted. Daughter No problems noted. Daughter No problems noted. Daughter No problems noted. Social History Household Members: Spouse and Other Household Members Other:: and grandson Housing: House Are you a primary customer care manager to a significant other at home: No Do you presently have visiting nurse or other home services: No Patient Tobacco Use Status: Former Tobacco user Tobacco use type: Cigarette Years Smoked: 15 e-Cigarette/Vaping Use: Never Used Second Hand Smoke Exposure: No Advance Directives Date on File: 03/05/22 service: Yes Current occupational status: retired Current occupational exposures/hazards: No Cognitive needs: No Hearing needs: No Vision needs: No Questionnaire Thrive Questionnaire Date Thrive assessed: 03/08/24 ELI-7 AMB Questionnaire ELI-7 Date ELI - 7 assessed: 11/19/23 Source: Developed by Drs. Adan Black, Hannah Powell, Marcell Levine and colleagues, with an educational marta from [employer]. Review of Systems Const Denies chills and Denies fever(s) ENT Denies epistaxis and Denies nasal discharge Card Denies chest pain Resp Denies chest congestion, Denies cough and Denies hemoptysis GI Denies diarrhea and Denies nausea Skin/Breast Denies rash Neuro Reports no additional complaints Psych Reports no additional complaints Endo Reports no additional complaints Physical exam (Primary Care) Tobacco/Smoking Status: Tobacco use Status Tobacco use date assessed 04/23/24 05/14/24 08:46 Patient Tobacco Use Status Former Tobacco user 05/14/24 08:46 Tobacco use type Cigarette 05/14/24 08:46 e-Cigarette/Vaping Use Never Used 05/14/24 08:46 Thrive Assessment: Date of Thrive Assessment Date Thrive assessed 03/08/24 05/14/24 08:46 Telehealth Telehealth Telehealth Platform: [facility] Location of provider rendering services: practice address Location of patient: address on file Patient Identification confirmed using: Name, : Yes Telehealth method: voice only Patient verbally consented to treatment: Yes Patient verbally consented to billing insurance company: Yes Patient informed of any privacy concerns related to visit: Yes Minutes spent on Phone/Video with Pt.: 13 Coding Level of Care Code Tele Est Pt Level 3 (94621) Diagnoses 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 type: idiopathic progressive neuropathy Assessment & Plan Assessment & Plan (1) Peripheral neuropathy: Comment: resultant gait instability-in wheelchair-can stand and pivot-uses walker at home-chair to bathroom Code(s): G62.9 - Polyneuropathy, unspecified Category: Medical Qualifiers: Peripheral neuropathy type: idiopathic progressive neuropathy Qualified Code(s): G60.3 - Idiopathic progressive neuropathy Plan Patient is 83-year-old gentleman this is a telemedicine visit He was started on gabapentin 200 mg last visit for peripheral neuropathy When patient was reluctant to do physical therapy due to pain He is doing much better as per his I am increasing the dose to 300 mg b.i.d. He has VNA coming over until the end of this month for physical therapy Medications: Changed From gabapentin 100 mg PO BID 30 days 60 caps 0RF To gabapentin 300 mg PO BID 60 caps 0RF 30 days
== END 2024-05-14 12:05 | disposition home or self-care (01) ==
LOC: HO.HMCC 08:32
PROVIDERS: PCP Internal Medicine; Visit Provider Internal Medicine
DX: G60.3 Idiopathic progressive neuropathy (principal)

== ENCOUNTER → 2024-05-14 08:32 | Outpatient (BNVA) | payer MEDICARE, SELFPAY | PROVIDERS: PCP Internal Medicine; Visit Provider Internal Medicine ==

== ENCOUNTER 2024-05-21 07:52 | Outpatient (REF) | payer MEDICARE, SELFPAY ==
[2024-05-21 10:09] LABS: MANUAL DIFF FLAG NO
[2024-05-21 10:16] LABS: Basophils Absolute Auto 0.1 X10*3/uL (0.0-0.2); Basophils Percent Auto 0.8 % (0-2); Eosinophils Absolute Auto 0.2 X10*3/uL (0.0-0.4); Hematocrit 33.9 % (42.0-52.0); Hemoglobin 11.7 g/dl (14.0-18.0); Imm Gran Abs Auto 0.02 X10*3/uL (0.00-0.03); Imm Gran Pct Auto 0.3 % (0.0-0.4); Lymphocytes Absolute Auto 1.3 X10*3/uL (1.2-4.9); Mean Corpuscular HGB Conc 34.5 g/dl (31.0-36.0); Mean Corpuscular Volume 98.5 fL (80.0-98.0); Mean Platelet Volume 8.6 fL (9.4-12.4); Monocytes Absolute Auto 0.7 X10*3/uL (0.1-1.2); Monocytes Percent Auto 11.3 % (2-11); Neutrophils Absolute Auto 4.1 x10*3/uL (2.0-8.3); Neutrophils Percent Auto 64.6 % (45-73); Platelet Count 165 X10*3/uL (160-400); Red Blood Count 3.44 X10*6/uL (4.60-5.80); Red Cell Distribution Width 13.2 % (11.0-16.0); White Blood Count 6.4 X10*3/uL (4.8-10.8)
[2024-05-21 10:37] LABS: Alanine Aminotransferase 6 U/L (0-40); Albumin Level 2.6 g/dL (3.5-5.0); Alkaline Phosphatase 93 U/L (39-117); Aspartate Amino Transferase 25 U/L (5-37); Bilirubin Total 0.6 mg/dL (0.0-1.0); Blood Urea Nitrogen 13 mg/dL (9-16); Calcium 8.3 mg/dL (8.4-10.2); Carbon Dioxide 31 mmol/L (22-29); Chloride 103 mmol/L (96-108); Estimated Glomerular Filt Rate > 60; Glucose Random 117 mg/dL (60-115); Potassium 4.1 mmol/L (3.3-5.1); Sodium 137 mmol/L (135-145); Total Protein 5.9 g/dL (6.5-8.0)
[2024-05-21 12:42] LABS: Anion Gap 7 (12-20)
== END 2024-05-21 07:53 | disposition home or self-care (01) ==
LOC: HO.LHD 07:52
PROVIDERS: Visit Provider Internal Medicine Medical Oncology
DX: I10 Essential (primary) hypertension (principal); D64.9 Anemia, unspecified; F41.1 Generalized anxiety disorder; R26.89 Other abnormalities of gait and mobility; E13.9 Other specified diabetes mellitus without complications
CPT/HCPCS: 36415; 80053; 85025

== ENCOUNTER 2024-06-18 06:57 | Outpatient (REF) | payer MEDICARE, SELFPAY ==
--- OUTSIDE RECORDS SUMMARY | 2024-06-18 07:06 | XMS_ITS | Clinical Summary ---
Author Organization Unknown Care Team Providers Care Physician Scribe Name Role Phone LO BLAKE, CATA Unavailable Unavailable GEORGE SIENE MAKER, CHRISTIAN Unavailable Unavailable BELEN PT, DWIGHT Unavailable Unavailable SPAFFORD OT, ABDULLAHI Unavailable Unavailable CONDINO SEAMER OPERATOR/PINEDA, INDIGO Unavailable Unav ailable DU TODD ST, NEVIN Unavailable Unavailable PER RN, HARJIT Unavailable Unavailab eladio GALAN WOOD CALKER, KINGSLEY Unavailable Unavailable VIJAY BRAGAN, JAYLAN Unavailable Unavail able Payers Payer Name Policy Type Policy Number Effective Date Expira tion Date [facility] [id number] Problems Condition Name Condition Details Condition Category Status Onset Date Resolution Date Last Treatment Date Treating Clinician Comments 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 S W/O OBSTRUCTION Active 2023-07 00:00: 00 NONINFECTIVE GASTROENTERI TIS AND COLITIS, UNSPECIFIED Active 2023-07 00:00: 00 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,UNSP Active 2023-07 00:00: 00 ESSENTIAL (PRIMARY) HYPERTENSION Active 2023-07- 00:00: 00 TYPE 2 DIABETES 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 2023-07- 00:00: 00 CHRONIC OBSTRUCTIVE PULMONARY DISEASE, UNSPECIFIED Active 03-08 00:00: 00 DYSPHAGIA, UNSPECIFIED Active 2023-07- 00:00: 00 ANEMIA, UNSPECIFIED Active 03-08 00:00: 00 VENOUS INSUFFICIENC Y (CHRONIC) (PERIPHERAL) Active 2023-07- 00:00: 00 MUSCLE WEAKNESS (GENERALIZED ) Active 2023-07 00:00: 00 TYPE 2 DIABETES MELLITUS WITH DIABETIC NEUROPATHY, UNSP Active 2023-07 0 00:00: 00 VITAMIN B12 DEFICIENCY ANEMIA, UNSPECIFIED Active 07-08 00:00: 00 UNSPECIFIED MOOD [AFFECTIVE] DISORDER Active 07-08 00:00: 00 BODY MASS INDEX [BMI] 36.0-36.9, ADULT Active 2023-07 00:00: 00 ENCOUNTER FOR CHANGE OR REMOVAL OF NONSURG WOUND DRESSING Active 2023-07 00:00: 00 Allergies, Adverse Reactions, Alerts Allergy Name Allergy Type Status Severity Reaction(s) Onset Date Inactive Date Treating Clinician Comments NO KNOWN ALLERGIES Propensity to adverse reactions Active 2023-07 10:06: 46 Medications Ordered Medication Name Filled Medication Name Start Date Stop Date Current Medication? Ordering Clinician Indication Dosage Frequency Signature (SIG) Comments Components escitalopra m 20 mg tablet 13 00:00: 00 Yes [id number] ANXIETY/FEA R 1 tablet DAILY 1 tablet DAILY (route: oral) Med Classific ation: Central Nervous System Agents ascorbic acid (vitamin C) 500 mg tablet 2023-07 00:00: 00 Yes [id number] SUPPLEMENT 1 tablet DAILY 1 tablet DAILY (route: oral) Med Classific ation: Electroly te Balance-N utritiona l Products cholecalcif madi (vitamin D3) 25 mcg (1,000 unit) tablet 2023-07 00:00: 00 Yes [id number] SUPPLEMENT 1 tablet DAILY 1 tablet DAILY (route: oral) Med Classific ation: Electroly te Balance-N utritiona l Products cyanocobala min (vit B-12) 1,000 mcg sublingual tablet 2023-07 00:00: 00 Yes [id number] SUPPLEMENT/ ANEMIA 1 tablet DAILY 1 tablet DAILY (route: sublingual ) Med Classific ation: Electroly te Balance-N utritiona l Products ferrous sulfate 325 mg (65 mg iron) tablet 2023-07 00:00: 00 Yes [id number] ANEMIA 1 tablet DAILY 1 tablet DAILY (route: oral) Med Classific ation: Electroly te Balance-N utritiona l Products folic acid 1 mg tablet 2023-07 00:00: 00 Yes [id number] SUPPLEMENT 1 tablet DAILY 1 tablet DAILY (route: oral) Med Classific ation: Electroly te Balance-N utritiona l Products metoprolol tartrate 25 mg tablet 2023-07 0 00:00: 00 Yes [id number] IRREGULAR HEARTBEAT 1 tablet DAILY 1 tablet DAILY (route: oral) Med Classific ation: Cardiovas cular Therapy Agents gabapentin 100 mg capsule 2023-07 0 00:00: 00 06-05 23:59 :00 No [id number] PAIN 1 capsule 2 TIMES DAILY 1 capsule 2 TIMES DAILY (route: oral) Med Classific ation: Central Nervous System Agents Colace 100 mg capsule 2023-07 00:00: 00 06-05 23:59 :00 No [id number] CONSTIPATIO N 100 mg 2 TIMES DAILY 100 mg 2 TIMES DAILY (route: oral) Med Classific ation: Gastroint estinal Therapy Agents gabapentin 300 mg capsule 2023-07 00:00: 00 Yes [id number] PAIN 300 mg 2 TIMES DAILY 300 mg 2 TIMES DAILY (route: oral) Med Classific ation: Central Nervous System Agents acetaminoph en ER 650 mg tablet,exte nded release 2023-07 00:00: 00 Yes [id number] PAIN 2 tablet 2 TIMES DAILY 2 tablet 2 TIMES DAILY (route: oral) Med Classific ation: Analgesic , Anti-infl ammatory or Antipyret ic Vital Signs Vital Name Observation Time Observation Value Commen ts Temperature 2024-06-16 10:34:00.000 98.3 [degF] Temperature 2024-06-10 11:57:00.000 97.8 [degF] Temperature 2024-06-09 12:41:00.000 97.2 [degF] Pulse 2024-06-16 10:34:00.000 52 /min Pulse 2024-06-10 11:57:00.000 50 /min Pulse 2024-06-09 12:41:00.000 80 /min O2 Saturation (%) 2024-06-16 10:35:00.000 99 % O2 Saturation (%) 2024-06-09 12:42:00.000 98 % Respirations 2024-06-16 10:34:00.000 18 /min Respirations 2024-06-10 11:57:00.000 18 /min Respirations 2024-06-09 12:41:00.000 18 /min Systolic Blood Pressure 2024-06-16 10:34:00.000 102 mm [Hg] Systolic Blood Pressure 2024-06-10 11:57:00.000 110 mm [Hg] Systolic Blood Pressure 2024-06-09 12:41:00.000 100 mm [Hg] Diastolic Blood Pressure 2024-06-16 10:34:00.000 52 mm [Hg] Diastolic Blood Pressure 2024-06-10 11:57:00.000 60 mm [Hg] Diastolic Blood Pressure 2024-06-09 12:41:00.000 60 mm [Hg] Plan of Treatment Planned Activity Planned Date Details Comments Future Scheduled Test RN TO OBSE RVE, ASSESS, EVALUATE, AND DEVELOP AN INDIVIDUALIZED PLAN OF CARE. AGENCY MAY ACCEPT ORDERS FROM CONSULTING PHYSICIANS . RN TO OBSERVE AND ASSESS, GEOTECHNICAL DEPARTMENT MANAGER/REPORTING MANAGER TO OBSERVE FOR RISK FOR FALLS AND INSTRUCT IN FALL PREVENTION, HOME SAFETY, MEDICATION MANAGEMENT, INFECTION PREVENTION, AND NUTRITION MANAGEMENT. RN/GEOTECHNICAL DEPARTMENT MANAGER/REPORTING MANAGER NURSE MAY PERFORM O2 SATURATION LEVEL ON ADMISSION AND PRN FOR RN TO ASSESS/GEOTECHNICAL DEPARTMENT MANAGER TO OBSERVE PATIENT, WITH NOTIFICATION TO THE PHYSICIAN IF SATURATION IS 90% IN THE ABSENCE OF MORE SPECIFIC PARAMETERS FROM THE PHYSICIAN. AGENCY MAY PERFORM A RESUMPTION OF CARE VISIT FOLLOWING ANY HOSPITAL ADMISSION. RN/GEOTECHNICAL DEPARTMENT MANAGER/REPORTING MANAGER TO MONITOR CO-MORBID CONDITIONS LISTED ON THE PLAN OF CARE AND ANY NEW CONDITIONS THAT PRESENT THEMSELVES DURING THIS EPISODE TO IDENTIFY CHANGES AND INTERVENE TO MINIMIZE COMPLICATIONS. [code = RN TO OBSERVE, ASSESS, EVALUATE, AND DEVELOP AN INDIVIDUALIZED PLAN OF CARE. AGENCY MAY ACCEPT ORDERS FROM CONSULTING PHYSICIANS . RN TO OBSERVE AND ASSESS, GEOTECHNICAL DEPARTMENT MANAGER/REPORTING MANAGER TO OBSERVE FOR RISK FOR FALLS AND INSTRUCT IN FALL PREVENTION, HOME SAFETY, MEDICATION MANAGEMENT, INFECTION PREVENTION, AND NUTRITION MANAGEMENT. RN/GEOTECHNICAL DEPARTMENT MANAGER/REPORTING MANAGER NURSE MAY PERFORM O2 SATURATION LEVEL ON ADMISSION AND PRN FOR RN TO ASSESS/GEOTECHNICAL DEPARTMENT MANAGER TO OBSERVE PATIENT, WITH NOTIFICATION TO THE PHYSICIAN IF SATURATION IS 90% IN THE ABSENCE OF MORE SPECIFIC PARAMETERS FROM THE PHYSICIAN. AGENCY MAY PERFORM A RESUMPTION OF CARE VISIT FOLLOWING ANY HOSPITAL ADMISSION. RN/GEOTECHNICAL DEPARTMENT MANAGER/REPORTING MANAGER TO MONITOR CO-MORBID CONDITIONS LISTED ON THE PLAN OF CARE AND ANY NEW CONDITIONS THAT PRESENT THEMSELVES DURING THIS EPISODE TO IDENTIFY CHANGES AND INTERVENE TO MINIMIZE COMPLICATIONS.] Future Scheduled Test MEDICATION MANAGEMENT; RN/GEOTECHNICAL DEPARTMENT MANAGER/REPORTING MANAGER TO REVIEW MEDICATIONS FOR INTERACTIONS, EFFECTIVENESS OF DRUG THERAPY, AND SIGNS/SYMPTOMS OF ADVERSE REACTIONS. MAY INSTRUCT AND REINFORCE MEDICATION TEACHING RELATED TO THE USE OF MEDICATIONS, DOSAGE, FREQUENCY, PURPOSE, SIDE EFFECTS, AND TO REPORT COMPLICATIONS. [code = MEDICATION MANAGEMENT; RN/GEOTECHNICAL DEPARTMENT MANAGER/REPORTING MANAGER TO REVIEW MEDICATIONS FOR INTERACTIONS, EFFECTIVENESS OF DRUG THERAPY, AND SIGNS/SYMPTOMS OF ADVERSE REACTIONS. MAY INSTRUCT AND REINFORCE MEDICATION TEACHING RELATED TO THE USE OF MEDICATIONS, DOSAGE, FREQUENCY, PURPOSE, SIDE EFFECTS, AND TO REPORT COMPLICATIONS.] Future Scheduled Test RISK FOR H OSPITALIZATION; RN TO ASSESS/TEACH, REPORTING MANAGER/GEOTECHNICAL DEPARTMENT MANAGER TO OBSERVE/TEACH PATIENT/CAREGIVER ON RISK FOR HOSPITALIZATION/EMERGENCY ROOM VISITS, TEACH SIGNS AND SYMPTOMS THAT PUT PATIENT AT RISK, WHEN TO NOTIFY NURSE/PHYSICIAN OF COMPLICATIONS/DECLINE, AND WHEN TO CALL 911. [code = RISK FOR HOSPITALIZATION; RN TO ASSESS/TEACH, REPORTING MANAGER/GEOTECHNICAL DEPARTMENT MANAGER TO OBSERVE/TEACH PATIENT/CAREGIVER ON RISK FOR HOSPITALIZATION/EMERGENCY ROOM VISITS, TEACH SIGNS AND SYMPTOMS THAT PUT PATIENT AT RISK, WHEN TO NOTIFY NURSE/PHYSICIAN OF COMPLICATIONS/DECLINE, AND WHEN TO CALL 911.] Future Scheduled Test CARDIOVASC ULAR SYSTEM; RN TO ASSESS/TEACH, GEOTECHNICAL DEPARTMENT MANAGER/REPORTING MANAGER TO OBSERVE/TEACH RELATED TO ALTERED CARDIOVASCULAR STATUS TO MINIMIZE COMPLICATIONS AND REDUCE HOSPITALIZATION. [code = CARDIOVASCULAR SYSTEM; RN TO ASSESS/TEACH, GEOTECHNICAL DEPARTMENT MANAGER/REPORTING MANAGER TO OBSERVE/TEACH RELATED TO ALTERED CARDIOVASCULAR STATUS TO MINIMIZE COMPLICATIONS AND REDUCE HOSPITALIZATION.] Future Scheduled Test HYPERTENSI ON MANAGEMENT; RN TO ASSESS AND TEACH, GEOTECHNICAL DEPARTMENT MANAGER/REPORTING MANAGER TO OBSERVE AND TEACH WARNING SIGNS AND SYMPTOMS TO AVOID HOSPITALIZATION. [code = HYPERTENSION MANAGEMENT; RN TO ASSESS AND TEACH, GEOTECHNICAL DEPARTMENT MANAGER/REPORTING MANAGER TO OBSERVE AND TEACH WARNING SIGNS AND SYMPTOMS TO AVOID HOSPITALIZATION.] Future Scheduled Test ARRHYTHMIA MANAGEMENT; RN TO ASSESS AND TEACH, GEOTECHNICAL DEPARTMENT MANAGER/REPORTING MANAGER TO OBSERVE AND TEACH WARNING SIGNS AND SYMPTOMS TO AVOID HOSPITALIZATION. [code = ARRHYTHMIA MANAGEMENT; RN TO ASSESS AND TEACH, GEOTECHNICAL DEPARTMENT MANAGER/REPORTING MANAGER TO OBSERVE AND TEACH WARNING SIGNS AND SYMPTOMS TO AVOID HOSPITALIZATION.] Future Scheduled Test SKIN INTEG RITY RN TO ASSESS AND TEACH, GEOTECHNICAL DEPARTMENT MANAGER/REPORTING MANAGER TO OBSERVE AND TEACH INTEGUMENTARY STATUS TO IDENTIFY CHANGES AND INTERVENE TO MINIMIZE COMPLICATIONS. PROVIDE SKILLED TEACHING OF GENERAL WOUND AND SKIN CARE AND PREVENTION RELATED TO ACTUAL ALTERED SKIN INTEGRITY [code = SKIN INTEGRITY RN TO ASSESS AND TEACH, GEOTECHNICAL DEPARTMENT MANAGER/REPORTING MANAGER TO OBSERVE AND TEACH INTEGUMENTARY STATUS TO IDENTIFY CHANGES AND INTERVENE TO MINIMIZE COMPLICATIONS. PROVIDE SKILLED TEACHING OF GENERAL WOUND AND SKIN CARE AND PREVENTION RELATED TO ACTUAL ALTERED SKIN INTEGRITY ] Future Scheduled Test RN/GEOTECHNICAL DEPARTMENT MANAGER/REPORTING MANAGER TO PERFORM/TEACH PATIENT/CAREGIVER WOUND CARE TO MASD TO BILATERAL BUTTOCKS: IRRIGATE/CLEANSE WITH NORMALSALINE, APPLY ZINC REMEDY CREAM DO WITH ALL INCONTINENT CARE AND GRANDSON ABLE TO DO TREATMENT IN NURSING ABSENCE [code = RN/GEOTECHNICAL DEPARTMENT MANAGER/REPORTING MANAGER TO PERFORM/TEACH PATIENT/CAREGIVER WOUND CARE TO MASD TO BILATERAL BUTTOCKS: IRRIGATE/CLEANSE WITH NORMALSALINE, APPLY ZINC REMEDY CREAM DO WITH ALL INCONTINENT CARE AND GRANDSON ABLE TO DO TREATMENT IN NURSING ABSENCE ] Future Scheduled Test PAIN MANAG EMENT; RN TO ASSESS AND TEACH, REPORTING MANAGER/GEOTECHNICAL DEPARTMENT MANAGER TO OBSERVE AND TEACH AND PROVIDE EDUCATION ON PAIN MANAGEMENT TECHNIQUES. [code = PAIN MANAGEMENT; RN TO ASSESS AND TEACH, REPORTING MANAGER/GEOTECHNICAL DEPARTMENT MANAGER TO OBSERVE AND TEACH AND PROVIDE EDUCATION ON PAIN MANAGEMENT TECHNIQUES.] Future Scheduled Test DIABETES M ANAGEMENT; RN TO ASSESS AND TEACH, REPORTING MANAGER/GEOTECHNICAL DEPARTMENT MANAGER TO OBSERVE AND TEACH INSTRUCTIONS OF DIABETIC CARE TO INCLUDE: DIET CCHO, HEART HEALTHY SKIN CARE, SIGNS AND SYMPTOMS OF HYPO/HYPERGLYCEMIA, PROPER ADMINISTRATION OF DIABETIC MEDICATION. RN/REPORTING MANAGER/GEOTECHNICAL DEPARTMENT MANAGER TO INSTRUCT ON DIABETIC FOOT CARE AND MONITOR FOR SKIN LESIONS ON LOWER EXTREMITIES. RN TO ASSESS AND TEACH, REPORTING MANAGER/GEOTECHNICAL DEPARTMENT MANAGER TO OBSERVE AND TEACH PATIENT/CAREGIVER ABILITY TO PERFORM AND RECORD BLOOD GLUCOSE TESTING ORDERED AND TO REPORT ABNORMAL FINDINGS TO PHYSICIAN. RN/REPORTING MANAGER/GEOTECHNICAL DEPARTMENT MANAGER MAY PERFORM BLOOD GLUCOSE TEST NEEDED. RN/REPORTING MANAGER/GEOTECHNICAL DEPARTMENT MANAGER TO REPORT TO PHYSICIAN BLOOD GLUCOSE READINGS GREATER THAN 200 OR LESS THAN 80 RN/REPORTING MANAGER/GEOTECHNICAL DEPARTMENT MANAGER TO INSTRUCT PATIENT ON IMPORTANCE OF HGBA1C MONITORING, KIDNEY FUNCTION TEST, EYE AND FOOT EXAMS. [code = DIABETES MANAGEMENT; RN TO ASSESS AND TEACH, REPORTING MANAGER/GEOTECHNICAL DEPARTMENT MANAGER TO OBSERVE AND TEACH INSTRUCTIONS OF DIABETIC CARE TO INCLUDE: DIET CCHO, HEART HEALTHY SKIN CARE, SIGNS AND SYMPTOMS OF HYPO/HYPERGLYCEMIA, PROPER ADMINISTRATION OF DIABETIC MEDICATION. RN/REPORTING MANAGER/GEOTECHNICAL DEPARTMENT MANAGER TO INSTRUCT ON DIABETIC FOOT CARE AND MONITOR FOR SKIN LESIONS ON LOWER EXTREMITIES. RN TO ASSESS AND TEACH, REPORTING MANAGER/GEOTECHNICAL DEPARTMENT MANAGER TO OBSERVE AND TEACH PATIENT/CAREGIVER ABILITY TO PERFORM AND RECORD BLOOD GLUCOSE TESTING ORDERED AND TO REPORT ABNORMAL FINDINGS TO PHYSICIAN. RN/REPORTING MANAGER/GEOTECHNICAL DEPARTMENT MANAGER MAY PERFORM BLOOD GLUCOSE TEST NEEDED. RN/REPORTING MANAGER/GEOTECHNICAL DEPARTMENT MANAGER TO REPORT TO PHYSICIAN BLOOD GLUCOSE READINGS GREATER THAN 200 OR LESS THAN 80 RN/REPORTING MANAGER/GEOTECHNICAL DEPARTMENT MANAGER TO INSTRUCT PATIENT ON IMPORTANCE OF HGBA1C MONITORING, KIDNEY FUNCTION TEST, EYE AND FOOT EXAMS.] Future Scheduled Test FALL REDUC TION MANAGEMENT; RN TO ASSESS AND TEACH, GEOTECHNICAL DEPARTMENT MANAGER/REPORTING MANAGER TO OBSERVE AND TEACH ON EDUCATION AND INTERVENTION TO IDENTIFY FALL RISK FACTORS SUCH MEDICATIONS THAT MAY CAUSE DIZZINESS, CHRONIC DISEASES, PSYCHOLOGICAL FACTORS, AND EMPOWER/EDUCATE PATIENT/CAREGIVER TO MINIMIZE FALL RISK. [code = FALL REDUCTION MANAGEMENT; RN TO ASSESS AND TEACH, GEOTECHNICAL DEPARTMENT MANAGER/REPORTING MANAGER TO OBSERVE AND TEACH ON EDUCATION AND INTERVENTION TO IDENTIFY FALL RISK FACTORS SUCH MEDICATIONS THAT MAY CAUSE DIZZINESS, CHRONIC DISEASES, PSYCHOLOGICAL FACTORS, AND EMPOWER/EDUCATE PATIENT/CAREGIVER TO MINIMIZE FALL RISK.] Future Scheduled Test AGENCY MAY PERFORM A RESUMPTION OF CARE VISIT FOLLOWING ANY HOSPITAL ADMISSION. OT TO EVALUATE, OBSERVE / ASSESS, AND MONITOR, YAEL TO OBSERVE AND MONITOR, PROVIDE SKILLED THERAPEUTIC INTERVENTION, ACTIVITY, EDUCATION, AND TRAINING TO ADDRESS; WEAKNESS, IMPAIRED BALANCE, FALL PREVENTION, DECLINE IN ADLS AND FUNCTIONAL MOBILITY. PERSONAL HYGIENE/GROOMING (OT/YAEL) DRESSING (OT/YAEL) TOILET TRANSFER (OT/YAEL) OT/SEAMER OPERATOR TO MONITOR AND EDUCATE ON OXYGEN SATURATION DURING ADLS/IADLS, NOTIFY PHYSICIAN AND/OR THE RN CLINICAL FAGOT HEATER FOR PHYSICIAN NOTIFICATION AND IF O2 SATS BELOW 90% AFTER 10 MIN OF REST. OT / SEAMER OPERATOR TO IDENTIFY FALL RISK FACTORS; EDUCATE THE PATIENT/CAREGIVER ON WAYS TO REDUCE FALL RISK FACTORS AND ESTABLISH HOME EXERCISE PROGRAM TO MINIMIZE FALL RISK. MAY TEACH THE PATIENT FLOOR RECOVERY WHEN CLINICALLY APPROPRIATE. [code = AGENCY MAY PERFORM A RESUMPTION OF CARE VISIT FOLLOWING ANY HOSPITAL ADMISSION. OT TO EVALUATE, OBSERVE / ASSESS, AND MONITOR, SEAMER OPERATOR TO OBSERVE AND MONITOR, PROVIDE SKILLED THERAPEUTIC INTERVENTION, ACTIVITY, EDUCATION, AND TRAINING TO ADDRESS; WEAKNESS, IMPAIRED BALANCE, FALL PREVENTION, DECLINE IN ADLS AND FUNCTIONAL MOBILITY. PERSONAL HYGIENE/GROOMING (OT/YAEL) DRESSING (OT/SEAMER OPERATOR) TOILET TRANSFER (OT/SEAMER OPERATOR) OT/YAEL TO MONITOR AND EDUCATE ON OXYGEN SATURATION DURING ADLS/IADLS, NOTIFY PHYSICIAN AND/OR THE RN CLINICAL FAGOT HEATER FOR PHYSICIAN NOTIFICATION AND IF O2 SATS BELOW 90% AFTER 10 MIN OF REST. OT / YAEL TO IDENTIFY FALL RISK FACTORS; EDUCATE THE PATIENT/CAREGIVER ON WAYS TO REDUCE FALL RISK FACTORS AND ESTABLISH HOME EXERCISE PROGRAM TO MINIMIZE FALL RISK. MAY TEACH THE PATIENT FLOOR RECOVERY WHEN CLINICALLY APPROPRIATE.] Future Scheduled Test AGENCY MAY PERFORM A RESUMPTION OF CARE VISIT FOLLOWING ANY HOSPITAL ADMISSION. PT TO EVALUATE, OBSERVE / ASSESS, AND MONITOR, SIENE MAKER TO OBSERVE AND MONITOR, PROVIDE SKILLED THERAPEUTIC INTERVENTION, ACTIVITY, EDUCATION, AND TRAINING TO ADDRESS; PT/SIENE MAKER TO PROVIDE GAIT TRAINING FOR IMPROVED MOBILITY AND /OR TO NORMALIZE GAIT PATTERN NEUROMUSCULAR RE-EDUCATION / BALANCE / POSTURAL CONTROL (PT) THERAPEUTIC EXERCISES AND ESTABLISHING A HOME EXERCISE PROGRAM (PT/SIENE MAKER) SIT TO/FROM STAND TRANSFERS (PT/SIENE MAKER) PT / SIENE MAKER TO MONITOR AND EDUCATE ON OXYGEN SATURATION DURING ADLS/IADLS, NOTIFY PHYSICIAN AND/OR THE RN CLINICAL FAGOT HEATER FOR PHYSICIAN NOTIFICATION AND IF O2 SATS BELOW PHYSICIAN ORDERED PARAMETERS AFTER 10 MIN OF REST PT/SIENE MAKER TO IDENTIFY FALL RISK FACTORS; EDUCATE THE PATIENT/CAREGIVER ON WAYS TO REDUCE FALL RISK FACTORS AND ESTABLISH HOME EXERCISE PROGRAM TO MINIMIZE FALL RISK. MAY TEACH THE PATIENT FLOOR RECOVERY WHEN CLINICALLY APPROPRIATE PT / SIENE MAKER MAY EDUCATE ON PAIN MANAGEMENT CLINICALLY INDICATED, INCLUDING NON-PHARMACOLOGICAL PAIN REDUCTION TECHNIQUES [code = AGENCY MAY PERFORM A RESUMPTION OF CARE VISIT FOLLOWING ANY HOSPITAL ADMISSION. PT TO EVALUATE, OBSERVE / ASSESS, AND MONITOR, SIENE MAKER TO OBSERVE AND MONITOR, PROVIDE SKILLED THERAPEUTIC INTERVENTION, ACTIVITY, EDUCATION, AND TRAINING TO ADDRESS; PT/SIENE MAKER TO PROVIDE GAIT TRAINING FOR IMPROVED MOBILITY AND /OR TO NORMALIZE GAIT PATTERN NEUROMUSCULAR RE-EDUCATION / BALANCE / POSTURAL CONTROL (PT) THERAPEUTIC EXERCISES AND ESTABLISHING A HOME EXERCISE PROGRAM (PT/SIENE MAKER) SIT TO/FROM STAND TRANSFERS (PT/SIENE MAKER) PT / SIENE MAKER TO MONITOR AND EDUCATE ON OXYGEN SATURATION DURING ADLS/IADLS, NOTIFY PHYSICIAN AND/OR THE RN CLINICAL FAGOT HEATER FOR PHYSICIAN NOTIFICATION AND IF O2 SATS BELOW PHYSICIAN ORDERED PARAMETERS AFTER 10 MIN OF REST PT/SIENE MAKER TO IDENTIFY FALL RISK FACTORS; EDUCATE THE PATIENT/CAREGIVER ON WAYS TO REDUCE FALL RISK FACTORS AND ESTABLISH HOME EXERCISE PROGRAM TO MINIMIZE FALL RISK. MAY TEACH THE PATIENT FLOOR RECOVERY WHEN CLINICALLY APPROPRIATE PT / SIENE MAKER MAY EDUCATE ON PAIN MANAGEMENT CLINICALLY INDICATED, INCLUDING NON-PHARMACOLOGICAL PAIN REDUCTION TECHNIQUES ] Goal 2024-06-05 Patient Goal - S TRONGER WITH WALKER, HEALTHY, NO HOSPITAL Goal Patient Goal - S TRONGER WITH WALKER, HEALTHY, NO HOSPITAL Goal Provider Goal - A PLAN OF CARE WILL BE ESTABLISHED THAT MEETS THE PATIENTS NEEDS. PATIENT WILL DEMONSTRATE OXYGEN SATURATION WITHIN NORMAL LIMITS OR PATIENTS OPTIMAL LEVEL ESTABLISHED BY THE PHYSICIAN THROUGHOUT CARE. CHANGES TO CO-MORBID CONDITIONS AND ANY NEW CONDITIONS WILL BE IDENTIFIED AND REPORTED TO THE PHYSICIAN. Goal Provider Goal - PATIENT/CAREGIVER TO VERBALIZE, AND CONSISTENTLY DEMONSTRATE EFFECTIVE, SAFE MANAGEMENT OF MEDICATION INCLUDING KNOWLEDGE OF EFFECTIVENESS, POTENTIAL SIDE EFFECTS AND DRUG REACTIONS AND WHEN TO CONTACT THE APPROPRIATE CARE PROVIDER. PATIENT/CAREGIVER WILL BE ABLE TO VERBALIZE UNDERSTANDING OF MEDICATION REGIMEN AND ACCURATELY TAKE MEDICATIONS PRESCRIBED WITHOUT ADVERSE EFFECTS BY EOE Goal Provider Goal - PATIENT/CAREGIVER WILL VERBALIZE UNDERSTANDING OF SIGNS AND SYMPTOMS THAT PUT THE PATIENT AT RISK FOR HOSPITALIZATION /EMERGENCY ROOM VISITS, WHEN TO NOTIFY NURSE/PHYSICIAN OF COMPLICATIONS/DECLINE AND WHEN TO CALL 911. Goal Provider Goal - PATIENT / CAREGIVER WILL VERBALIZE/DEMONSTRATE UNDERSTANDING OF MEASURES TO MANAGE ALTERED CARDIOVASCULAR STATUS BY EOE. Goal Provider Goal - PATIENT / CAREGIVER WILL VERBALIZE/DEMONSTRATE AN ABILITY TO ADHERE TO SELF-MANAGEMENT OF HTN TO MINIMIZE COMPLICATIONS AND AVOID HOSPITALIZATION BY END OF EPISODE. Goal Provider Goal - PATIENT / CAREGIVER WILL VERBALIZE/DEMONSTRATE AN ABILITY TO ADHERE TO SELF-MANAGEMENT OF HEART ARRHYTHMIA TO MINIMIZE COMPLICATIONS AND AVOID HOSPITALIZATION BY END OF EPISODE. Goal Provider Goal - CHANGES IN SKIN INTEGRITY STATUS WILL BE IDENTIFIED AND REPORTED TO THE PHYSICIAN FOR PROMPT INTERVENTION. PATIENT / CAREGIVER WILL VERBALIZE/DEMONSTRATE ADEQUATE KNOWLEDGE OF INTEGUMENTARY STATUS AND APPROPRIATE MEASURES TO PROMOTE SKIN INTEGRITY AND PREVENT INJURY BY EOE Goal Provider Goal - PATIENT / CAREGIVER WILL VERBALIZE/DEMONSTRATE ABILITY TO PERFORM WOUND CARE. WOUND STATUS WILL IMPROVE EVIDENCED BY A DECREASE IN SIZE, DRAINAGE, ABSENCE OF INFECTION, AND DECREASED PAIN BY EOE. Goal Provider Goal - PATIENT / CAREGIVER WILL VERBALIZE / DEMONSTRATE UNDERSTANDING OF PAIN CONTROL MEASURES BY EOE Goal Provider Goal - PATIENT / CAREGIVER WILL VERBALIZE / DEMONSTRATE AN ABILITY TO ADHERE TO SELF-MANAGEMENT OF DIABETES MANAGEMENT BY EOE Goal Provider Goal - PATIENT/CAREGIVER ABLE TO IDENTIFY FALL RISK FACTORS AND IMPLEMENT STRATEGIES TO MINIMIZE FALL RISK. PATIENT/CAREGIVER WILL VERBALIZE/DEMONSTRATE AN ABILITY TO ADHERE TO FALL REDUCTION SELF-MANAGEMENT AND LIFE-STYLE CHANGES AT DISCHARGE. PERSONAL GOAL(S) STATED BY PATIENT/CAREGIVER WILL BE MET BY EOE. Goal Provider Goal - OT STG: PATIENT WILL DEMONSTRATE IMPROVED GROOMING WITH MIN ASSIST WITHIN 2 WEEKS. OT LTG: PATIENT WILL DEMONSTRATE IMPROVED ABILITY TO PERFORM GROOMING FROM MOD ASSIST TO SUPERVISION WITHIN 8 WEEKS. OT STG: PATIENT WILL DEMONSTRATE IMPROVED DRESSING WITH MOD ASSIST WITHIN 2 WEEKS. OT LTG: PATIENT WILL DEMONSTRATE IMPROVED ABILITY TO PERFORM LOWER BODY DRESSING TO REDUCE CAREGIVER BURDEN FROM MAX ASSIST TO MIN ASSIST WITHIN 8 WEEKS. OT LTG: PATIENT WILL DEMONSTRATE IMPROVED ABILITY TO PERFORM TOILET TRANSFERS TO REDUCE FALL RISK AND RISK OF INCONTINENCE AND UTI DEVELOPMENT FROM MIN ASSIST TO SUPERVISION WITHIN 8 WEEKS. OT LTG: PATIENT WILL MAINTAIN OXYGEN SATURATION WITHIN PHYSICIAN ORDERED PARAMETERS THROUGHOUT THE EPISODE OF CARE. OT LTG: PATIENT/CAREGIVER WILL BE ABLE TO IMPLEMENT RECOMMENDATIONS SPECIFIC TO FALL REDUCTION FOR IMPROVED ADL/IADL COMPLETION AND HOME SAFETY BY END OF EPISODE. OT LTG: PATIENT WILL BE INDEPENDENT WITH IMPLEMENTATION OF HEP WITHIN 8 WEEKS. Goal Provider Goal - PT LTG: PATIENT WILL DEMONSTRATE REDUCED GAIT DEVIATIONS TO REDUCE THE RISK FOR FALLING AND MINIMIZE STRAIN ON KNEES/HIPS AND BACK EVIDENCED BY IMPROVED HEEL STRIKE, ADEQUATE STEP LENGTH AND CONSISTENT FOOT CLEARANCE BILATERALLY USING WALKER TO WALK WITH SBA IN ORDER TO ACCESS SAFELY ACCESS BATHROOM WITHIN 9 WEEKS PT LTG: PATIENT WILL DEMONSTRATE ABILITY TO STAND WITH SINGLE UE SUPPORT AND PERFORM REACHING ACTIVITIES ACROSS MIDLINE WITH FREE HAND WITHOUT LOB WITHIN 9 WEEKS PT LTG: PATIENT WILL DEMONSTRATE INCREASED STRENGTH OF BILATERAL LES FROM 3/5 TO 4/5 WITHIN 9 WEEKS IN ORDER TO IMPROVE SAFETY AND STABILITY WITH GAIT AND STANDING ACTIVITIES PT STG: PATIENT WILL DEMONSTRATE IMPROVED ABILITY TO PERFORM SIT TO/FROM STAND TRANSFERS TO REDUCE THE RISK OF SKIN BREAKDOWN AND REDUCE FALL RISK FROM CGA TO INDEPENDENT WITHIN 9 WEEKS PT LTG: PATIENT WILL MAINTAIN OXYGEN SATURATION WITHIN PHYSICIAN ORDERED PARAMETERS THROUGHOUT EPISODE OF CARE. PT LTG: PATIENT/CAREGIVER WILL DEMONSTRATE ADHERENCE TO FALL REDUCTION SELF-MANAGEMENT AND REDUCING FALL RISK FACTORS TO MINIMIZE FALL RISK BY END OF EPISODE. PT LTG: CAREGIVER WILL BE INDEPENDENT ASSISTING PATIENT TO COMPLETE HEP WITHIN 4 WEEKS PT GOAL: PATIENT WILL DEMONSTRATE UNDERSTANDING OF PAIN MANAGEMENT TECHNIQUES EVIDENCED BY REDUCED PAIN Encounters Start Date/Time End Date/Time Encounter Type Admission Type Attending [facility] Care Facility Care Department Encounter ID Discharge Date Discharge Status Discharge Condition Discharge Reason Percent Goals Met 2024-04-09 00:00:00 2024 00:00:00 Outpatient [facility] HARJIT HAGEN [facility] [id number]
[2024-06-18 11:06] LABS: MANUAL DIFF FLAG NO
[2024-06-18 11:12] LABS: Basophils Absolute Auto 0.1 X10*3/uL (0.0-0.2); Basophils Percent Auto 0.7 % (0-2); Eosinophils Absolute Auto 0.2 X10*3/uL (0.0-0.4); Eosinophils Percent Auto 2.6 % (0-4); Hematocrit 33.3 % (42.0-52.0); Hemoglobin 11.8 g/dl (14.0-18.0); Imm Gran Abs Auto 0.01 X10*3/uL (0.00-0.03); Imm Gran Pct Auto 0.1 % (0.0-0.4); Lymphocytes Absolute Auto 1.2 X10*3/uL (1.2-4.9); Lymphocytes Percent Auto 16.5 % (20-40); Mean Corpuscular HGB Conc 35.4 g/dl (31.0-36.0); Mean Corpuscular Hemoglobin 34.4 pg (27.0-33.0); Mean Corpuscular Volume 97.1 fL (80.0-98.0); Mean Platelet Volume 8.3 fL (9.4-12.4); Monocytes Absolute Auto 0.9 X10*3/uL (0.1-1.2); Monocytes Percent Auto 12.3 % (2-11); Neutrophils Percent Auto 67.8 % (45-73); Platelet Count 144 X10*3/uL (160-400); Red Blood Count 3.43 X10*6/uL (4.60-5.80); Red Cell Distribution Width 13.2 % (11.0-16.0); White Blood Count 7.3 X10*3/uL (4.8-10.8)
[2024-06-18 11:35] LABS: Alanine Aminotransferase < 6 U/L (0-40); Albumin Level 2.7 g/dL (3.5-5.0); Alkaline Phosphatase 103 U/L (39-117); Anion Gap 8 (12-20); Aspartate Amino Transferase 33 U/L (5-37); Bilirubin Total 0.5 mg/dL (0.0-1.0); Blood Urea Nitrogen 15 mg/dL (9-16); Carbon Dioxide 30 mmol/L (22-29); Chloride 104 mmol/L (96-108); Estimated Glomerular Filt Rate > 60; Glucose Random 153 mg/dL (60-115); Potassium 3.7 mmol/L (3.3-5.1); Sodium 138 mmol/L (135-145)
== END 2024-06-18 06:58 | disposition home or self-care (01) ==
LOC: HO.LHD 06:57
PROVIDERS: Visit Provider Internal Medicine Medical Oncology
DX: D64.9 Anemia, unspecified (principal)
CPT/HCPCS: 36415; 80053; 85025

== ENCOUNTER 2024-07-16 08:50 | Outpatient (REF) | payer MEDICARE, SELFPAY ==
--- OUTSIDE RECORDS SUMMARY | 2024-07-16 09:08 | XMS_ITS | Clinical Summary ---
Author Organization Unknown Care Team Providers Care Community Relations Assistant Name Role Phone LO BLAKE, CATA Unavailable Unavailable GEORGE METALLURGICAL INSPECTOR, CHRISTIAN Unavailable Unavailable BELEN PT, DWIGHT Unavailable Unavailable SPAFFORD OT, ABDULLAHI Unavailable Unavailable CONDINO YAEL/PINEDA, INDIGO Unavailable Unav ailable DU TODD ST, NEVIN Unavailable Unavailable PER RN, HARJIT Unavailable Unavailab eladio GALAN CANDY CUTTER HAND, KINGSLEY Unavailable Unavailable VIJAY BRAGAN, JAYLAN Unavailable Unavail able Payers Payer Name Policy Type Policy Number Effective Date Expira tion Date [facility] [id number] Problems Condition Name Condition Details Condition Category [...] 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 2023-07 00:00: 00 CHRONIC OBSTRUCTIVE PULMONARY DISEASE, UNSPECIFIED Active 03-08 00:00: 00 DYSPHAGIA, UNSPECIFIED Active 2023-07- 00:00: 00 ANEMIA, UNSPECIFIED Active 03-08 00:00: 00 VENOUS INSUFFICIENC Y (CHRONIC) (PERIPHERAL) Active 2023-07 00:00: 00 MUSCLE WEAKNESS (GENERALIZED ) Active [...] 20 mg tablet 13 00:00: 00 Yes [id number] ANXIETY/FEA R 1 tablet DAILY 1 tablet DAILY (route: oral) Med Classific ation: Central Nervous System Agents ascorbic acid (vitamin C) 500 mg tablet 2023-07 00:00: 00 Yes [id number] SUPPLEMENT 1 tablet DAILY 1 tablet DAILY (route: oral) Med Classific ation: Electroly te Balance-N utritiona l Products cholecalcif madi (vitamin D3) 25 mcg (1,000 unit) tablet 2023-07 00:00: 00 Yes [id number] SUPPLEMENT 1 tablet DAILY 1 tablet DAILY (route: oral) Med Classific ation: Electroly te Balance-N utritiona l Products cyanocobala min (vit B-12) 1,000 mcg sublingual tablet 2023-07 00:00: 00 Yes [id number] SUPPLEMENT/ ANEMIA 1 tablet DAILY 1 tablet DAILY (route: sublingual ) Med Classific ation: Electroly te Balance-N utritiona l Products ferrous sulfate 325 mg (65 mg iron) tablet 2023-07 00:00: 00 Yes [id number] ANEMIA 1 tablet DAILY 1 tablet DAILY (route: oral) Med Classific ation: Electroly te Balance-N utritiona l Products folic acid 1 mg tablet 2023-07 00:00: 00 Yes [id number] SUPPLEMENT 1 tablet DAILY 1 tablet DAILY (route: oral) Med Classific ation: Electroly te Balance-N utritiona l Products metoprolol tartrate 25 mg tablet 2023-07 0 00:00: 00 Yes [id number] IRREGULAR HEARTBEAT 1 tablet DAILY 1 tablet DAILY (route: oral) Med Classific ation: Cardiovas cular Therapy Agents gabapentin 100 mg capsule 2023-07 00:00: 00 06-05 23:59 :00 No [id number] PAIN 1 capsule 2 TIMES DAILY 1 capsule 2 TIMES DAILY (route: oral) Med Classific ation: Central Nervous System Agents Colace 100 mg capsule 2023-07 00:00: 00 06-05 23:59 :00 No [id number] CONSTIPATIO N 100 mg 2 TIMES DAILY 100 mg 2 TIMES DAILY (route: oral) Med Classific ation: Gastroint estinal Therapy Agents gabapentin 300 mg capsule 2023-07 00:00: 00 Yes [id number] PAIN 300 mg 2 TIMES DAILY 300 mg 2 TIMES DAILY (route: oral) Med Classific ation: Central Nervous System Agents acetaminoph en ER 650 mg tablet,exte nded release 2023-07 00:00: 00 Yes [id number] PAIN 2 tablet 2 TIMES DAILY 2 tablet 2 TIMES DAILY (route: oral) Med Classific ation: Analgesic , Anti-infl ammatory or Antipyret ic Vital Signs Vital Name Observation Time Observation Value Commen ts Temperature 2024-07-15 10:33:00.000 97.3 [degF] Temperature 2024-07-14 09:33:00.000 97.2 [degF] Temperature 2024-07-07 09:48:00.000 98.2 [degF] Temperature 2024-06-30 10:53:00.000 98.6 [degF] Temperature 2024-06-29 10:46:00.000 97.7 [degF] Temperature 2024-06-26 12:18:00.000 97.2 [degF] Temperature 2024-06-23 13:43:00.000 97.2 [degF] Temperature 2024-06-21 20:07:00.000 97.2 [degF] Temperature 2024-06-18 10:04:00.000 97.8 [degF] Temperature 2024-06-16 10:34:00.000 98.3 [degF] Temperature 2024-06-10 11:57:00.000 97.8 [degF] Temperature 2024-06-09 12:41:00.000 97.2 [degF] Pulse 2024-07-15 10:33:00.000 50 /min Pulse 2024-07-14 09:33:00.000 52 /min Pulse 2024-07-07 09:48:00.000 60 /min Pulse 2024-06-30 10:53:00.000 50 /min Pulse 2024-06-29 10:46:00.000 65 /min Pulse 2024-06-26 12:18:00.000 61 /min Pulse 2024-06-23 13:43:00.000 80 /min Pulse 2024-06-21 20:07:00.000 80 /min Pulse 2024-06-18 10:04:00.000 61 /min Pulse 2024-06-16 10:34:00.000 52 /min Pulse 2024-06-10 11:57:00.000 50 /min Pulse 2024-06-09 12:41:00.000 80 /min O2 Saturation (%) 2024-07-15 10:33:00.000 95 % O2 Saturation (%) 2024-07-14 09:34:00.000 98 % O2 Saturation (%) 2024-07-07 09:48:00.000 93 % O2 Saturation (%) 2024-06-30 10:54:00.000 98 % O2 Saturation (%) 2024-06-29 10:46:00.000 99 % O2 Saturation (%) 2024-06-26 12:19:00.000 94 % O2 Saturation (%) 2024-06-23 13:43:00.000 98 % O2 Saturation (%) 2024-06-18 10:04:00.000 97 % O2 Saturation (%) 2024-06-16 10:35:00.000 99 % O2 Saturation (%) 2024-06-09 12:42:00.000 98 % Respirations 2024-07-15 10:33:00.000 18 /min Respirations 2024-07-14 09:33:00.000 18 /min Respirations 2024-07-07 09:48:00.000 18 /min Respirations 2024-06-30 10:53:00.000 18 /min Respirations 2024-06-29 10:46:00.000 17 /min Respirations 2024-06-26 12:18:00.000 18 /min Respirations 2024-06-23 13:43:00.000 18 /min Respirations 2024-06-21 20:07:00.000 18 /min Respirations 2024-06-18 10:04:00.000 18 /min Respirations 2024-06-16 10:34:00.000 18 /min Respirations 2024-06-10 11:57:00.000 18 /min Respirations 2024-06-09 12:41:00.000 18 /min Systolic Blood Pressure 2024-07-15 10:33:00.000 118 mm [Hg] Systolic Blood Pressure 2024-07-14 09:33:00.000 102 mm [Hg] Systolic Blood Pressure 2024-07-07 09:48:00.000 98 mm[ Hg] Systolic Blood Pressure 2024-06-30 10:53:00.000 102 mm [Hg] Systolic Blood Pressure 2024-06-29 10:46:00.000 108 mm [Hg] Systolic Blood Pressure 2024-06-26 12:18:00.000 116 mm [Hg] Systolic Blood Pressure 2024-06-23 13:43:00.000 120 mm [Hg] Systolic Blood Pressure 2024-06-21 20:07:00.000 110 mm [Hg] Systolic Blood Pressure 2024-06-18 10:04:00.000 120 mm [Hg] Systolic Blood Pressure 2024-06-16 10:34:00.000 102 mm [Hg] Systolic Blood Pressure 2024-06-10 11:57:00.000 110 mm [Hg] Systolic Blood Pressure 2024-06-09 12:41:00.000 100 mm [Hg] Diastolic Blood Pressure 2024-07-15 10:33:00.000 62 mm [Hg] Diastolic Blood Pressure 2024-07-14 09:33:00.000 60 mm [Hg] Diastolic Blood Pressure 2024-07-07 09:48:00.000 52 mm [Hg] Diastolic Blood Pressure 2024-06-30 10:53:00.000 52 mm [Hg] Diastolic Blood Pressure 2024-06-29 10:46:00.000 64 mm [Hg] Diastolic Blood Pressure 2024-06-26 12:18:00.000 64 mm [Hg] Diastolic Blood Pressure 2024-06-23 13:43:00.000 68 mm [Hg] Diastolic Blood Pressure 2024-06-21 20:07:00.000 62 mm [Hg] Diastolic Blood Pressure 2024-06-18 10:04:00.000 68 mm [Hg] Diastolic Blood Pressure 2024-06-16 10:34:00.000 [...] PHYSICIANS . RN TO OBSERVE AND ASSESS, INTENSIVE CARE NURSE/CASINO GAMING WORKER TO OBSERVE FOR RISK FOR FALLS AND INSTRUCT IN FALL PREVENTION, HOME SAFETY, MEDICATION MANAGEMENT, INFECTION PREVENTION, AND NUTRITION MANAGEMENT. RN/INTENSIVE CARE NURSE/CASINO GAMING WORKER NURSE MAY PERFORM O2 SATURATION LEVEL ON ADMISSION AND PRN FOR RN TO ASSESS/INTENSIVE CARE NURSE TO OBSERVE PATIENT, WITH NOTIFICATION TO THE PHYSICIAN IF SATURATION IS 90% IN THE ABSENCE OF MORE SPECIFIC PARAMETERS FROM THE PHYSICIAN. AGENCY MAY PERFORM A RESUMPTION OF CARE VISIT FOLLOWING ANY HOSPITAL ADMISSION. RN/INTENSIVE CARE NURSE/CASINO GAMING WORKER TO MONITOR CO-MORBID CONDITIONS LISTED ON THE PLAN OF CARE AND ANY NEW CONDITIONS THAT PRESENT THEMSELVES DURING THIS EPISODE TO IDENTIFY CHANGES AND INTERVENE TO MINIMIZE COMPLICATIONS. [code = RN TO OBSERVE, ASSESS, EVALUATE, AND DEVELOP AN INDIVIDUALIZED PLAN OF CARE. AGENCY MAY ACCEPT ORDERS FROM CONSULTING PHYSICIANS . RN TO OBSERVE AND ASSESS, INTENSIVE CARE NURSE/CASINO GAMING WORKER TO OBSERVE FOR RISK FOR FALLS AND INSTRUCT IN FALL PREVENTION, HOME SAFETY, MEDICATION MANAGEMENT, INFECTION PREVENTION, AND NUTRITION MANAGEMENT. RN/INTENSIVE CARE NURSE/CASINO GAMING WORKER NURSE MAY PERFORM O2 SATURATION LEVEL ON ADMISSION AND PRN FOR RN TO ASSESS/INTENSIVE CARE NURSE TO OBSERVE PATIENT, WITH NOTIFICATION TO THE PHYSICIAN IF SATURATION IS 90% IN THE ABSENCE OF MORE SPECIFIC PARAMETERS FROM THE PHYSICIAN. AGENCY MAY PERFORM A RESUMPTION OF CARE VISIT FOLLOWING ANY HOSPITAL ADMISSION. RN/INTENSIVE CARE NURSE/CASINO GAMING WORKER TO MONITOR CO-MORBID CONDITIONS LISTED ON THE PLAN OF CARE AND ANY NEW CONDITIONS THAT PRESENT THEMSELVES DURING THIS EPISODE TO IDENTIFY CHANGES AND INTERVENE TO MINIMIZE COMPLICATIONS.] Future Scheduled Test MEDICATION MANAGEMENT; RN/INTENSIVE CARE NURSE/CASINO GAMING WORKER TO REVIEW MEDICATIONS FOR INTERACTIONS, EFFECTIVENESS OF DRUG THERAPY, AND SIGNS/SYMPTOMS OF ADVERSE REACTIONS. MAY INSTRUCT AND REINFORCE MEDICATION TEACHING RELATED TO THE USE OF MEDICATIONS, DOSAGE, FREQUENCY, PURPOSE, SIDE EFFECTS, AND TO REPORT COMPLICATIONS. [code = MEDICATION MANAGEMENT; RN/INTENSIVE CARE NURSE/CASINO GAMING WORKER TO REVIEW MEDICATIONS FOR INTERACTIONS, EFFECTIVENESS OF DRUG THERAPY, AND SIGNS/SYMPTOMS OF ADVERSE REACTIONS. MAY INSTRUCT AND REINFORCE MEDICATION TEACHING RELATED TO THE USE OF MEDICATIONS, DOSAGE, FREQUENCY, PURPOSE, SIDE EFFECTS, AND TO REPORT COMPLICATIONS.] Future Scheduled Test RISK FOR H OSPITALIZATION; RN TO ASSESS/TEACH, CASINO GAMING WORKER/INTENSIVE CARE NURSE TO OBSERVE/TEACH PATIENT/CAREGIVER ON RISK FOR HOSPITALIZATION/EMERGENCY ROOM VISITS, TEACH SIGNS AND SYMPTOMS THAT PUT PATIENT AT RISK, WHEN TO NOTIFY NURSE/PHYSICIAN OF COMPLICATIONS/DECLINE, AND WHEN TO CALL 911. [code = RISK FOR HOSPITALIZATION; RN TO ASSESS/TEACH, CASINO GAMING WORKER/INTENSIVE CARE NURSE TO OBSERVE/TEACH PATIENT/CAREGIVER ON RISK FOR HOSPITALIZATION/EMERGENCY ROOM VISITS, TEACH SIGNS AND SYMPTOMS THAT PUT PATIENT AT RISK, WHEN TO NOTIFY NURSE/PHYSICIAN OF COMPLICATIONS/DECLINE, AND WHEN TO CALL 911.] Future Scheduled Test CARDIOVASC ULAR SYSTEM; RN TO ASSESS/TEACH, INTENSIVE CARE NURSE/CASINO GAMING WORKER TO OBSERVE/TEACH RELATED TO ALTERED CARDIOVASCULAR STATUS TO MINIMIZE COMPLICATIONS AND REDUCE HOSPITALIZATION. [code = CARDIOVASCULAR SYSTEM; RN TO ASSESS/TEACH, INTENSIVE CARE NURSE/CASINO GAMING WORKER TO OBSERVE/TEACH RELATED TO ALTERED CARDIOVASCULAR STATUS TO MINIMIZE COMPLICATIONS AND REDUCE HOSPITALIZATION.] Future Scheduled Test HYPERTENSI ON MANAGEMENT; RN TO ASSESS AND TEACH, INTENSIVE CARE NURSE/CASINO GAMING WORKER TO OBSERVE AND TEACH WARNING SIGNS AND SYMPTOMS TO AVOID HOSPITALIZATION. [code = HYPERTENSION MANAGEMENT; RN TO ASSESS AND TEACH, INTENSIVE CARE NURSE/CASINO GAMING WORKER TO OBSERVE AND TEACH WARNING SIGNS AND SYMPTOMS TO AVOID HOSPITALIZATION.] Future Scheduled Test ARRHYTHMIA MANAGEMENT; RN TO ASSESS AND TEACH, INTENSIVE CARE NURSE/CASINO GAMING WORKER TO OBSERVE AND TEACH WARNING SIGNS AND SYMPTOMS TO AVOID HOSPITALIZATION. [code = ARRHYTHMIA MANAGEMENT; RN TO ASSESS AND TEACH, INTENSIVE CARE NURSE/CASINO GAMING WORKER TO OBSERVE AND TEACH WARNING SIGNS AND SYMPTOMS TO AVOID HOSPITALIZATION.] Future Scheduled Test SKIN INTEG RITY RN TO ASSESS AND TEACH, INTENSIVE CARE NURSE/CASINO GAMING WORKER TO OBSERVE AND TEACH INTEGUMENTARY STATUS TO IDENTIFY CHANGES AND INTERVENE TO MINIMIZE COMPLICATIONS. PROVIDE SKILLED TEACHING OF GENERAL WOUND AND SKIN CARE AND PREVENTION RELATED TO ACTUAL ALTERED SKIN INTEGRITY [code = SKIN INTEGRITY RN TO ASSESS AND TEACH, INTENSIVE CARE NURSE/CASINO GAMING WORKER TO OBSERVE AND TEACH INTEGUMENTARY STATUS TO IDENTIFY CHANGES AND INTERVENE TO MINIMIZE COMPLICATIONS. PROVIDE SKILLED TEACHING OF GENERAL WOUND AND SKIN CARE AND PREVENTION RELATED TO ACTUAL ALTERED SKIN INTEGRITY ] Future Scheduled Test RN/INTENSIVE CARE NURSE/CASINO GAMING WORKER TO PERFORM/TEACH PATIENT/CAREGIVER WOUND CARE TO MASD TO BILATERAL BUTTOCKS: IRRIGATE/CLEANSE WITH NORMALSALINE, APPLY ZINC REMEDY CREAM DO WITH ALL INCONTINENT CARE AND GRANDSON ABLE TO DO TREATMENT IN NURSING ABSENCE [code = RN/INTENSIVE CARE NURSE/CASINO GAMING WORKER TO PERFORM/TEACH PATIENT/CAREGIVER WOUND CARE TO MASD TO BILATERAL BUTTOCKS: IRRIGATE/CLEANSE WITH NORMALSALINE, APPLY ZINC REMEDY CREAM DO WITH ALL INCONTINENT CARE AND GRANDSON ABLE TO DO TREATMENT IN NURSING ABSENCE ] Future Scheduled Test PAIN MANAG EMENT; RN TO ASSESS AND TEACH, CASINO GAMING WORKER/INTENSIVE CARE NURSE TO OBSERVE AND TEACH AND PROVIDE EDUCATION ON PAIN MANAGEMENT TECHNIQUES. [code = PAIN MANAGEMENT; RN TO ASSESS AND TEACH, CASINO GAMING WORKER/INTENSIVE CARE NURSE TO OBSERVE AND TEACH AND PROVIDE EDUCATION ON PAIN MANAGEMENT TECHNIQUES.] Future Scheduled Test DIABETES M ANAGEMENT; RN TO ASSESS AND TEACH, CASINO GAMING WORKER/INTENSIVE CARE NURSE TO OBSERVE AND TEACH INSTRUCTIONS OF DIABETIC CARE TO INCLUDE: DIET CCHO, HEART HEALTHY SKIN CARE, SIGNS AND SYMPTOMS OF HYPO/HYPERGLYCEMIA, PROPER ADMINISTRATION OF DIABETIC MEDICATION. RN/CASINO GAMING WORKER/INTENSIVE CARE NURSE TO INSTRUCT ON DIABETIC FOOT CARE AND MONITOR FOR SKIN LESIONS ON LOWER EXTREMITIES. RN TO ASSESS AND TEACH, CASINO GAMING WORKER/INTENSIVE CARE NURSE TO OBSERVE AND TEACH PATIENT/CAREGIVER ABILITY TO PERFORM AND RECORD BLOOD GLUCOSE TESTING ORDERED AND TO REPORT ABNORMAL FINDINGS TO PHYSICIAN. RN/CASINO GAMING WORKER/INTENSIVE CARE NURSE MAY PERFORM BLOOD GLUCOSE TEST NEEDED. RN/CASINO GAMING WORKER/INTENSIVE CARE NURSE TO REPORT TO PHYSICIAN BLOOD GLUCOSE READINGS GREATER THAN 200 OR LESS THAN 80 RN/CASINO GAMING WORKER/INTENSIVE CARE NURSE TO INSTRUCT PATIENT ON IMPORTANCE OF HGBA1C MONITORING, KIDNEY FUNCTION TEST, EYE AND FOOT EXAMS. [code = DIABETES MANAGEMENT; RN TO ASSESS AND TEACH, CASINO GAMING WORKER/INTENSIVE CARE NURSE TO OBSERVE AND TEACH INSTRUCTIONS OF DIABETIC CARE TO INCLUDE: DIET CCHO, HEART HEALTHY SKIN CARE, SIGNS AND SYMPTOMS OF HYPO/HYPERGLYCEMIA, PROPER ADMINISTRATION OF DIABETIC MEDICATION. RN/CASINO GAMING WORKER/INTENSIVE CARE NURSE TO INSTRUCT ON DIABETIC FOOT CARE AND MONITOR FOR SKIN LESIONS ON LOWER EXTREMITIES. RN TO ASSESS AND TEACH, CASINO GAMING WORKER/INTENSIVE CARE NURSE TO OBSERVE AND TEACH PATIENT/CAREGIVER ABILITY TO PERFORM AND RECORD BLOOD GLUCOSE TESTING ORDERED AND TO REPORT ABNORMAL FINDINGS TO PHYSICIAN. RN/CASINO GAMING WORKER/INTENSIVE CARE NURSE MAY PERFORM BLOOD GLUCOSE TEST NEEDED. RN/CASINO GAMING WORKER/INTENSIVE CARE NURSE TO REPORT TO PHYSICIAN BLOOD GLUCOSE READINGS GREATER THAN 200 OR LESS THAN 80 RN/CASINO GAMING WORKER/INTENSIVE CARE NURSE TO INSTRUCT PATIENT ON IMPORTANCE OF HGBA1C MONITORING, KIDNEY FUNCTION TEST, EYE AND FOOT EXAMS.] Future Scheduled Test FALL REDUC TION MANAGEMENT; RN TO ASSESS AND TEACH, INTENSIVE CARE NURSE/CASINO GAMING WORKER TO OBSERVE AND TEACH ON EDUCATION AND INTERVENTION TO IDENTIFY FALL RISK FACTORS SUCH MEDICATIONS THAT MAY CAUSE DIZZINESS, CHRONIC DISEASES, PSYCHOLOGICAL FACTORS, AND EMPOWER/EDUCATE PATIENT/CAREGIVER TO MINIMIZE FALL RISK. [code = FALL REDUCTION MANAGEMENT; RN TO ASSESS AND TEACH, INTENSIVE CARE NURSE/CASINO GAMING WORKER TO OBSERVE AND TEACH ON EDUCATION AND INTERVENTION TO IDENTIFY FALL RISK FACTORS SUCH MEDICATIONS THAT MAY CAUSE DIZZINESS, CHRONIC DISEASES, PSYCHOLOGICAL FACTORS, AND EMPOWER/EDUCATE PATIENT/CAREGIVER TO MINIMIZE FALL RISK.] Future Scheduled Test AGENCY MAY PERFORM A RESUMPTION OF CARE VISIT FOLLOWING ANY HOSPITAL ADMISSION. OT TO EVALUATE, OBSERVE / ASSESS, AND MONITOR, MELTER LOADER TO OBSERVE AND MONITOR, PROVIDE SKILLED THERAPEUTIC INTERVENTION, ACTIVITY, EDUCATION, AND TRAINING TO ADDRESS; WEAKNESS, IMPAIRED BALANCE, FALL PREVENTION, DECLINE IN ADLS AND FUNCTIONAL MOBILITY. PERSONAL HYGIENE/GROOMING (OT/MELTER LOADER) DRESSING (OT/MELTER LOADER) TOILET TRANSFER (OT/MELTER LOADER) OT/MELTER LOADER TO MONITOR AND EDUCATE ON OXYGEN SATURATION DURING ADLS/IADLS, NOTIFY PHYSICIAN AND/OR THE RN CLINICAL JIG BORING MACHINE SET UP OPERATOR FOR PHYSICIAN NOTIFICATION AND IF O2 SATS [...] TO EVALUATE, OBSERVE / ASSESS, AND MONITOR, MELTER LOADER TO OBSERVE AND MONITOR, PROVIDE SKILLED THERAPEUTIC INTERVENTION, ACTIVITY, EDUCATION, AND TRAINING TO ADDRESS; WEAKNESS, IMPAIRED BALANCE, FALL PREVENTION, DECLINE IN ADLS AND FUNCTIONAL MOBILITY. PERSONAL HYGIENE/GROOMING (OT/YAEL) DRESSING (OT/MELTER LOADER) TOILET TRANSFER (OT/YAEL) OT/YAEL TO MONITOR AND EDUCATE ON OXYGEN SATURATION DURING ADLS/IADLS, NOTIFY PHYSICIAN AND/OR THE RN CLINICAL JIG BORING MACHINE SET UP OPERATOR FOR PHYSICIAN NOTIFICATION AND IF O2 SATS BELOW 90% AFTER 10 MIN OF REST. OT / MELTER LOADER TO IDENTIFY FALL RISK FACTORS; EDUCATE THE PATIENT/CAREGIVER ON WAYS TO REDUCE FALL RISK FACTORS AND ESTABLISH HOME EXERCISE PROGRAM TO MINIMIZE FALL RISK. MAY TEACH THE PATIENT FLOOR RECOVERY WHEN CLINICALLY APPROPRIATE.] Future Scheduled Test AGENCY MAY PERFORM A RESUMPTION OF CARE VISIT FOLLOWING ANY HOSPITAL ADMISSION. PT TO EVALUATE, OBSERVE / ASSESS, AND MONITOR, METALLURGICAL INSPECTOR TO OBSERVE AND MONITOR, PROVIDE SKILLED THERAPEUTIC INTERVENTION, ACTIVITY, EDUCATION, AND TRAINING TO ADDRESS; PT/METALLURGICAL INSPECTOR TO PROVIDE GAIT TRAINING FOR IMPROVED MOBILITY AND /OR TO NORMALIZE GAIT PATTERN NEUROMUSCULAR RE-EDUCATION / BALANCE / POSTURAL CONTROL (PT) THERAPEUTIC EXERCISES AND ESTABLISHING A HOME EXERCISE PROGRAM (PT/METALLURGICAL INSPECTOR) SIT TO/FROM STAND TRANSFERS (PT/METALLURGICAL INSPECTOR) PT / METALLURGICAL INSPECTOR TO MONITOR AND EDUCATE ON OXYGEN SATURATION DURING ADLS/IADLS, NOTIFY PHYSICIAN AND/OR THE RN CLINICAL JIG BORING MACHINE SET UP OPERATOR FOR PHYSICIAN NOTIFICATION AND IF O2 SATS BELOW PHYSICIAN ORDERED PARAMETERS AFTER 10 MIN OF REST PT/METALLURGICAL INSPECTOR TO IDENTIFY FALL RISK FACTORS; EDUCATE THE PATIENT/CAREGIVER ON WAYS TO REDUCE FALL RISK FACTORS AND ESTABLISH HOME EXERCISE PROGRAM TO MINIMIZE FALL RISK. MAY TEACH THE PATIENT FLOOR RECOVERY WHEN CLINICALLY APPROPRIATE PT / METALLURGICAL INSPECTOR MAY EDUCATE ON PAIN MANAGEMENT CLINICALLY INDICATED, INCLUDING NON-PHARMACOLOGICAL PAIN REDUCTION TECHNIQUES [code = AGENCY MAY PERFORM A RESUMPTION OF CARE VISIT FOLLOWING ANY HOSPITAL ADMISSION. PT TO EVALUATE, OBSERVE / ASSESS, AND MONITOR, METALLURGICAL INSPECTOR TO OBSERVE AND MONITOR, PROVIDE SKILLED THERAPEUTIC INTERVENTION, ACTIVITY, EDUCATION, AND TRAINING TO ADDRESS; PT/METALLURGICAL INSPECTOR TO PROVIDE GAIT TRAINING FOR IMPROVED MOBILITY AND /OR TO NORMALIZE GAIT PATTERN NEUROMUSCULAR RE-EDUCATION / BALANCE / POSTURAL CONTROL (PT) THERAPEUTIC EXERCISES AND ESTABLISHING A HOME EXERCISE PROGRAM (PT/METALLURGICAL INSPECTOR) SIT TO/FROM STAND TRANSFERS (PT/METALLURGICAL INSPECTOR) PT / METALLURGICAL INSPECTOR TO MONITOR AND EDUCATE ON OXYGEN SATURATION DURING ADLS/IADLS, NOTIFY PHYSICIAN AND/OR THE RN CLINICAL JIG BORING MACHINE SET UP OPERATOR FOR PHYSICIAN NOTIFICATION AND IF O2 SATS BELOW PHYSICIAN ORDERED PARAMETERS AFTER 10 MIN OF REST PT/METALLURGICAL INSPECTOR TO IDENTIFY FALL RISK FACTORS; EDUCATE THE PATIENT/CAREGIVER ON WAYS TO REDUCE FALL RISK FACTORS AND ESTABLISH HOME EXERCISE PROGRAM TO MINIMIZE FALL RISK. MAY TEACH THE PATIENT FLOOR RECOVERY WHEN CLINICALLY APPROPRIATE PT / METALLURGICAL INSPECTOR MAY EDUCATE ON PAIN MANAGEMENT CLINICALLY INDICATED, [...] End Date/Time Encounter Type Admission Type Attending [facility] Care Department Encounter ID Discharge Date Discharge Status Discharge Condition Discharge Reason Percent Goals Met 2024-04-09 00:00:00 2024 00:00:00 Outpatient RECERTIFIC ATION HARJIT ALBARADO [facility] [id number]
[2024-07-16 10:07] LABS: MANUAL DIFF FLAG NO
[2024-07-16 10:11] LABS: Basophils Absolute Auto 0.1 X10*3/uL (0.0-0.2); Basophils Percent Auto 0.8 % (0-2); Eosinophils Absolute Auto 0.2 X10*3/uL (0.0-0.4); Eosinophils Percent Auto 3.2 % (0-4); Hematocrit 34.4 % (42.0-52.0); Hemoglobin 11.6 g/dl (14.0-18.0); Imm Gran Abs Auto 0.02 X10*3/uL (0.00-0.03); Imm Gran Pct Auto 0.3 % (0.0-0.4); Lymphocytes Absolute Auto 1.2 X10*3/uL (1.2-4.9); Lymphocytes Percent Auto 19.3 % (20-40); Mean Corpuscular HGB Conc 33.7 g/dl (31.0-36.0); Mean Corpuscular Hemoglobin 33.3 pg (27.0-33.0); Mean Corpuscular Volume 98.9 fL (80.0-98.0); Mean Platelet Volume 8.8 fL (9.4-12.4); Monocytes Absolute Auto 0.8 X10*3/uL (0.1-1.2); Neutrophils Percent Auto 64.4 % (45-73); Platelet Count 147 X10*3/uL (160-400); Red Blood Count 3.48 X10*6/uL (4.60-5.80); Red Cell Distribution Width 13.4 % (11.0-16.0); White Blood Count 6.3 X10*3/uL (4.8-10.8)
[2024-07-16 10:42] LABS: Alanine Aminotransferase < 6 U/L (0-40); Albumin Level 2.8 g/dL (3.5-5.0); Anion Gap 11 (12-20); Aspartate Amino Transferase 25 U/L (5-37); Bilirubin Total 0.5 mg/dL (0.0-1.0); Blood Urea Nitrogen 21 mg/dL (9-16); Calcium 8.6 mg/dL (8.4-10.2); Carbon Dioxide 28 mmol/L (22-29); Chloride 104 mmol/L (96-108); Estimated Glomerular Filt Rate > 60; Glucose Random 141 mg/dL (60-115); Potassium 4.3 mmol/L (3.3-5.1); Sodium 139 mmol/L (135-145); Total Protein 6.1 g/dL (6.5-8.0)
[2024-07-16 12:17] LABS: Alkaline Phosphatase 103 U/L (39-117)
== END 2024-07-16 08:51 | disposition home or self-care (01) ==
LOC: HO.LHD 08:50
PROVIDERS: Visit Provider Internal Medicine Medical Oncology
DX: D64.9 Anemia, unspecified (principal)
CPT/HCPCS: 36415; 80053; 85025

== ENCOUNTER 2024-08-13 05:49 | Outpatient (REF) | payer MEDICARE, SELFPAY ==
[2024-08-13 11:07] LABS: MANUAL DIFF FLAG NO
[2024-08-13 11:12] LABS: Basophils Percent Auto 0.4 % (0-2); Eosinophils Absolute Auto 0.2 X10*3/uL (0.0-0.4); Eosinophils Percent Auto 2.2 % (0-4); Hemoglobin 12.3 g/dl (14.0-18.0); Imm Gran Abs Auto 0.02 X10*3/uL (0.00-0.03); Imm Gran Pct Auto 0.3 % (0.0-0.4); Lymphocytes Absolute Auto 1.1 X10*3/uL (1.2-4.9); Lymphocytes Percent Auto 15.4 % (20-40); Mean Corpuscular HGB Conc 34.2 g/dl (31.0-36.0); Mean Corpuscular Hemoglobin 33.9 pg (27.0-33.0); Mean Corpuscular Volume 99.2 fL (80.0-98.0); Mean Platelet Volume 8.4 fL (9.4-12.4); Monocytes Absolute Auto 0.7 X10*3/uL (0.1-1.2); Neutrophils Absolute Auto 5.2 x10*3/uL (2.0-8.3); Neutrophils Percent Auto 71.7 % (45-73); Platelet Count 143 X10*3/uL (160-400); Red Blood Count 3.63 X10*6/uL (4.60-5.80); Red Cell Distribution Width 12.4 % (11.0-16.0); White Blood Count 7.3 X10*3/uL (4.8-10.8)
== END 2024-08-13 05:50 | disposition home or self-care (01) ==
LOC: HO.LHD 05:49
PROVIDERS: Visit Provider Internal Medicine Medical Oncology
DX: D64.9 Anemia, unspecified (principal)
CPT/HCPCS: 36415; 85025

== ENCOUNTER 2024-09-10 08:28 | Outpatient (REF) | payer MEDICARE, SELFPAY ==
--- OUTSIDE RECORDS SUMMARY | 2024-09-10 08:51 | XMS_ITS ---
Author Organization [facility] Address [address] [place] [id number] Care Team Providers Care Cobbler Mckay Name Role Phone Sree [facility] Provider Adan Garcia [phone] REASON FOR VISIT fe def anemia Problems Problem Type SNOMED Code ICD Code Onset Dates Problem Status W/U Status Risk Notes Problem Duodenitis (27196168) Duodenitis (K29.80) Active confirmed Problem Chronic gastritis (9541629) Chronic gastritis (K29.50) Active confirmed Encounters Encounter Location Date Provider Diagnosis [facility] [address] [place] [id number] 01/30/2024 Adan Martínez Duodenitis K29.80 ; Chronic gastritis K29.50 ; Hiatal hernia K44.9 and Iron deficiency anemia D50.9 Assessments Encounter Date Diagnosis (ICD Code) Assessment Notes Treatment Notes Treatment Clinical Notes Section Notes 01/30/2024 Duodenitis (ICD-10 - K29.80) 01/30/2024 Chronic gastritis (ICD-10 - K29.50) 01/30/2024 Hiatal hernia (ICD-10 - K44.9) 01/30/2024 Iron deficiency anemia (ICD-10 - D50.9) Plan Of Treatment No Information Progress Notes * HELENA ZAFARDOB:[birth year] (84 yo M)Acc No.[id number]:01/30/2024 EGD/MAC Patient:?HELENA ZAFAR Provider:?Adan Martínez MD :1940???Age:83 Y???Sex:Male Pascual e:01/30/2024 Address:[id number] Pcp:Krystin Balbuena MD Subjective: * Chief Complaints: * ???1. Fe def anemia. * Medical History:? Objective: * Vitals:? Assessment: * Assessment: 1.?Duodenitis - K29.80 (Prim robert)???2.?Chronic gastritis - K29.50???3.?Hiatal hernia - K44.9???4.?Iron deficiency anemia - D50.9??? Plan: * Treatment: * Procedure Codes:?91535 UPPER GI ENDOSCOPY, BIOPSY * * The named appointment provid er may or may not be the originator of this progress note, and it is not deemed complete until electronically signed by the appointment provider. Sign off status: Pending * Provider:?Adan Martínez MD Date:? 024 Generated for Billy yoo/Trish/eTransmitting on:?09/10/2024 08:51 AM EST
--- OUTSIDE RECORDS SUMMARY | 2024-09-10 08:51 | XMS_ITS ---
Author Organization [facility] Address [address] [place] [phone] Care Team Providers Care Brand Sales Manager Name Role Phone Sree BLAKE, Krystin Primary Care Provider Adan Garcia [facility] [phone] REASON FOR VISIT COLON RECALL Encounters Encounter Location Date Provider Diagnosis [facility] [address] [place] [phone] 04/08/2024 Adan Martínez Plan Of Treatment No Information Progress Notes * HELENA ZAFARDOB:[birth year] (84 yo M)Acc No.[id number]:04/08/2024 Progress Notes Patient:?HELENA ZAFAR Provider:?Adan Martínez MD :1940???Age:83 Y???Sex:Male Pascual e:04/08/2024 [id number] Pcp:Krystin Balbuena MD Subjective: * Chief Complaints: * ???1. COLON RECALL. * Medical History:? Objective: * Vitals:? Assessment: Plan: * Treatment: * * The named appointment provid er may or may not be the originator of this progress note, and it is not deemed complete until electronically signed by the appointment provider. Sign off status: Pending * Provider:?Adan Martínez MD Date:? 024 Generated for Billy yoo/Trish/eTransmitting on:?09/10/2024 08:51 AM EST
--- OUTSIDE RECORDS SUMMARY | 2024-09-10 08:51 | XMS_ITS ---
Author Organization [facility] Address [address] [place] [phone] Care Team Providers Care Head Custodian Name Role Phone Sree BLAKE, [facility] Primary [facility] Provider Adan Garcia [phone] Problems Problem Type SNOMED Code ICD Code Onset Dates Problem Status W/U Status Risk Notes Problem Anemia (100505878) Anemia (D64.9) Active confirmed Encounters Encounter Location Date Provider Diagnosis [facility] [address] [place] [phone] 01/12/2024 Adan Martínez Anemia D64.9 Assessments Encounter Date Diagnosis (ICD Code) Assessment Notes Treatment Notes Treatment Clinical Notes Section Notes 01/12/2024 Anemia (ICD-10 - D64.9) Plan Of Treatment Pending Test Test Name Order Date IRON + IBC (FE) 01/12/2024 VITAMIN B12 AND FOLATE 01/12/2024 CBC w DIFF 01/12/2024 CELIAC PANEL #10 01/12/2024 Ferritin 01/12/2024 Progress Notes * HELENA ZAFARDOB:[birth year] (83 yo M)Acc No.[id number]:01/12/2024 Patient:?HELENA ZAFAR :1940???Age:83 Y???Sex:Male Address:[place] [address] Subjective: * Chief Complaints: * ??? * Medical History:? * Surgical History:? * Hospitalization/Major Diagno stic Procedure:? * Medications:? Objective: Assessment: * Assessment: 1.?Anemia - D64.9 (Primary)? Plan: * Treatment: * Procedure Codes:? * true * Date:? Generated for Billy yoo/Trish/Christin on:?09/10/2024 08:51 AM EST
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
[2024-09-10 10:32] LABS: MANUAL DIFF FLAG NO
[2024-09-10 10:34] LABS: Basophils Percent Auto 0.4 % (0-2); Eosinophils Absolute Auto 0.1 X10*3/uL (0.0-0.4); Eosinophils Percent Auto 1.6 % (0-4); Hematocrit 35.6 % (42.0-52.0); Hemoglobin 12.2 g/dl (14.0-18.0); Imm Gran Abs Auto 0.02 X10*3/uL (0.00-0.03); Imm Gran Pct Auto 0.3 % (0.0-0.4); Lymphocytes Absolute Auto 1.1 X10*3/uL (1.2-4.9); Lymphocytes Percent Auto 14.8 % (20-40); Mean Corpuscular HGB Conc 34.3 g/dl (31.0-36.0); Mean Corpuscular Hemoglobin 33.5 pg (27.0-33.0); Mean Corpuscular Volume 97.8 fL (80.0-98.0); Mean Platelet Volume 8.5 fL (9.4-12.4); Monocytes Absolute Auto 0.7 X10*3/uL (0.1-1.2); Monocytes Percent Auto 9.8 % (2-11); Neutrophils Absolute Auto 5.5 x10*3/uL (2.0-8.3); Neutrophils Percent Auto 73.1 % (45-73); Platelet Count 188 X10*3/uL (160-400); Red Blood Count 3.64 X10*6/uL (4.60-5.80); Red Cell Distribution Width 11.9 % (11.0-16.0); White Blood Count 7.5 X10*3/uL (4.8-10.8)
[2024-09-10 10:54] LABS: Alanine Aminotransferase 11 U/L (0-40); Alkaline Phosphatase 117 U/L (39-117); Anion Gap 11 (12-20); Aspartate Amino Transferase 28 U/L (5-37); Bilirubin Total 0.5 mg/dL (0.0-1.0); Blood Urea Nitrogen 20 mg/dL (9-16); Calcium 8.7 mg/dL (8.4-10.2); Carbon Dioxide 28 mmol/L (22-29); Chloride 103 mmol/L (96-108); Estimated Glomerular Filt Rate > 60; Glucose Random 152 mg/dL (60-115); Potassium 4.1 mmol/L (3.3-5.1); Sodium 138 mmol/L (135-145); Total Protein 6.8 g/dL (6.5-8.0)
== END 2024-09-10 08:29 | disposition home or self-care (01) ==
LOC: HO.LHD 08:28
PROVIDERS: Visit Provider Internal Medicine Medical Oncology
DX: D64.9 Anemia, unspecified (principal)
CPT/HCPCS: 36415; 80053; 85025

== ENCOUNTER 2024-10-01 08:15 | Outpatient (AMB) | payer MEDICARE, SELFPAY ==
--- NOTE | 2024-10-01 08:32 | MHC.PC.OV ---
Intake Visit Reasons: Follow Up Labs Allergies No Known Allergies [No Known Allergies*] Allergy (Verified 10/01/24 08:32) Medication List - Last Reconciled 10/01/24 by Krystin Balbuena MD ascorbic acid (vitamin C) ER (Vitamin C) 500 mg PO DAILY blood pressure monitor Check blood pressure daily and as needed NS cholecalciferol (vitamin D3) 25 mcg PO QAM cyanocobalamin (vitamin B-12) 1,000 mcg sublingual DAILY docusate sodium 100 mg PO BID escitalopram oxalate 20 mg PO QAM ferrous sulfate 325 mg PO DAILY folic acid 1 mg PO QAM gabapentin 300 mg PO BID 30 days Tobacco use date assessed: 10/01/24 Fall risk assessment: No Falls in past year Dental Screening Dental Screen Date: 04/23/24 HPI Follow Up Labs HPI Details History - The patient is an 84-year-old male presenting for medication management related to peripheral neuropathy. - The patient experiences difficulty with gait, citing lack of proprioception due to sensory deficits in his feet. - Ongoing treatment includes gabapentin 300 mg, with noted improvement in the ability to stand. - Medication supply concerns prompted request for larger quantities, choosing mail-order service for resolution. - Reports low blood pressure recently noted; no current antihypertensives are prescribed following metoprolol discontinuation. - Comprehensive Diagnostics history includes stable anemia indicated by a hemoglobin level of 12.2 g/dL. - Recent laboratory assessments resulted in normal panels for renal, liver, and electrolyte function. Problem List - Peripheral neuropathy - Anemia - Hypotension Patient Instructions - Continue taking gabapentin 300 mg as prescribed. BID, 3 M sent - Expect medication to be supplied through mail order. - Monitor blood pressure if hypotension symptoms persist. - Report any changes in mobility or new symptoms promptly. - continue Vit D - contine lexapro to stablize mood Review of Systems - General: No fever no chills - Neurological: No headaches no dizziness - Ear nose throat: No sore throat no hearing difficulty no ear pain - Cardiovascular: No syncope, no chest pain, no palpitations - Gastrointestinal: No nausea vomiting or diarrhea - Endocrine: No polyuria polydipsia no heat intolerance - Genitourinary: No dysuria , no blood in urine [facility] Medical History Gallstones Incontinence COPD (chronic obstructive pulmonary disease) Normocytic normochromic anemia Peripheral neuropathy Diabetes 1.5, 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 Brother No problems noted. Brother No problems noted. Sister No problems noted. Son No problems noted. Son No problems noted. Son No problems noted. Son No problems noted. Daughter No problems noted. Daughter No problems noted. Daughter No problems noted. Social History Household Members: Spouse and Other Household Members Other:: and grandson Housing: House Are you a primary child care center administrator to a significant other at home: No Do you presently have visiting nurse or other home services: No Patient Tobacco Use Status: Former Tobacco user Tobacco use type: Cigarette Years Smoked: 15 e-Cigarette/Vaping Use: Never Used Second Hand Smoke Exposure: No Advance Directives Date on File: 03/05/22 service: Yes Current occupational status: retired Current occupational exposures/hazards: No Cognitive needs: No Hearing needs: No Vision needs: No Questionnaire Thrive Questionnaire Date Thrive assessed: 03/08/24 AUDIT C Alcohol Use Questionnaire (AUDIT-C) 2. How many drinks containing alcohol do you have on a typical day when you are drinking?: 1 or 2 3. How often do you have six or more drinks on one occasion?: Never Total Score: 0 ELI-7 AMB Questionnaire ELI-7 Date ELI - 7 assessed: 11/19/23 Source: Developed by Drs. Adan Black, Hannah Powell, Marcell Levine and colleagues, with an educational marta from [employer]. Physical exam (Primary Care) Tobacco/Smoking Status: Tobacco use Status Tobacco use date assessed 10/01/24 10/01/24 08:34 Patient Tobacco Use Status Former Tobacco user 10/01/24 08:34 Tobacco use type Cigarette 10/01/24 08:34 e-Cigarette/Vaping Use Never Used 10/01/24 08:34 Thrive Assessment: Date of Thrive Assessment Date Thrive assessed 03/08/24 10/01/24 08:34 Telehealth Telehealth Telehealth Platform: [facility] Location of provider rendering services: practice address Location of patient: address on file Patient Identification confirmed using: Name, : Yes Telehealth method: voice only Patient verbally consented to treatment: Yes Patient verbally consented to billing insurance company: Yes Patient informed of any privacy concerns related to visit: Yes Minutes spent on Phone/Video with Pt.: 13 Coding Level of Care Code Tele Est Pt Level 4 (73719) Diagnoses Microcytic anemia D50.9 Gait instability R26.81 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 type: 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, 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 R26.89 Anxiety, generalized F41.1 Primary osteoarthritis of both knees M17.0 Osteoarthritis type: primary Assessment & Plan Assessment & Plan (1) Microcytic anemia: Code(s): D50.9 - Iron deficiency anemia, unspecified Category: Medical (2) Gait instability: Code(s): R26.81 - Unsteadiness on feet Category: Medical (3) Peripheral neuropathy: Comment: resultant gait instability-in wheelchair-can stand and pivot-uses walker at home-chair to bathroom Code(s): G62.9 - Polyneuropathy, unspecified Category: Medical Qualifiers: Peripheral neuropathy type: idiopathic progressive neuropathy Qualified Code(s): G60.3 - Idiopathic progressive neuropathy (4) Diabetes 1.5, managed as type 2: Comment: no Rx at present-PCP monitors-does not check glucose at home Code(s): E13.9 - Other specified diabetes mellitus without complications Category: Medical (5) Multifactorial gait disorder: Comment: can stand and pivot, uses walker occasionally Code(s): R26.89 - Other abnormalities of gait and mobility Category: Medical (6) Anxiety, generalized: Code(s): F41.1 - Generalized anxiety disorder Category: Medical (7) Degenerative arthritis of knee, bilateral: Code(s): M17.0 - Bilateral primary osteoarthritis of knee Category: Medical Qualifiers: Osteoarthritis type: primary Qualified Code(s): M17.0 - Bilateral primary osteoarthritis of knee Plan History - The patient is an 84-year-old male presenting for medication management related to peripheral neuropathy. - The patient experiences difficulty with gait, citing lack of proprioception due to sensory deficits in his feet. - Ongoing treatment includes gabapentin 300 mg, with noted improvement in the ability to stand. - Medication supply concerns prompted request for larger quantities, choosing mail-order service for resolution. - Reports low blood pressure recently noted; no current antihypertensives are prescribed following metoprolol discontinuation. - Comprehensive Diagnostics history includes stable anemia indicated by a hemoglobin level of 12.2 g/dL. - Recent laboratory assessments resulted in normal panels for renal, liver, and electrolyte function. Problem List - Peripheral neuropathy - Anemia - Hypotension - anxiety - diet control diabetes - risk for fall OA knees Patient Instructions - Continue taking gabapentin 300 mg as prescribed. BID, 3 M sent - Expect medication to be supplied through mail order. - Monitor blood pressure if hypotension symptoms persist. - Report any changes in mobility or new symptoms promptly. - continue Vit D - contine lexapro to stablize mood
== END 2024-10-01 09:10 | disposition home or self-care (01) ==
LOC: HO.HMCC 08:16
PROVIDERS: PCP Internal Medicine; Visit Provider Internal Medicine
DX: D50.9 Iron deficiency anemia, unspecified (principal); E13.9 Other specified diabetes mellitus without complications; R26.81 Unsteadiness on feet; G60.3 Idiopathic progressive neuropathy; R26.89 Other abnormalities of gait and mobility; F41.1 Generalized anxiety disorder; M17.0 Bilateral primary osteoarthritis of knee

== ENCOUNTER → 2024-10-01 08:15 | Outpatient (BNVA) | payer MEDICARE, SELFPAY | PROVIDERS: PCP Internal Medicine; Visit Provider Internal Medicine ==

== ENCOUNTER 2024-10-08 06:15 | Outpatient (REF) | payer MEDICARE, SELFPAY ==
--- OUTSIDE RECORDS SUMMARY | 2024-10-08 06:18 | XMS_ITS ---
Author Organization [facility] Address [address] [place] [id number] Care Team Providers Care Tuckpointer Name Role Phone Sree BLAKE, [facility] Primary Care Provider Adan Garcia [phone] REASON FOR VISIT fe def anemia Problems Problem Type SNOMED Code ICD Code Onset Dates Problem Status W/U Status Risk Notes Problem Duodenitis (93009785) Duodenitis (K29.80) Active confirmed Problem Chronic gastritis (9996658) Chronic gastritis (K29.50) Active confirmed Encounters Encounter Location Date Provider Diagnosis [facility] Out[facility] [address] [place] [id number] 01/30/2024 Adan Martínez Duodenitis K29.80 ; Chronic [...] Notes * HELENA ZAFARDOB:[birth year] (84 yo M)Acc No.[id number]:01/30/2024 EGD/MAC Patient:?HELENA ZAFAR Provider:?Adan Martínez MD :1940???Age:83 Y???Sex:Male Pascual e:01/30/2024 Address:[address] [facility] Pcp:Krystin Balbuena MD Subjective: * Chief Complaints: * ???1. Fe def anemia. * Medical History:? Objective: * Vitals:? Assessment: * Assessment: 1.?Duodenitis - K29.80 (Prim robert)???2.?Chronic gastritis - K29.50???3.?Hiatal hernia - K44.9???4.?Iron deficiency anemia - D50.9??? Plan: * Treatment: * Procedure Codes:?31555 UPPER GI ENDOSCOPY, BIOPSY * * The named appointment provid er may or may not be the originator of this progress note, and it is not deemed complete until electronically signed by the appointment provider. Sign off status: Pending * Provider:?Adan Martínez MD Date:? 024 Generated for Billy yoo/Trish/eTransmitting on:?10/08/2024 06:18 AM EDT
--- OUTSIDE RECORDS SUMMARY | 2024-10-08 06:18 | XMS_ITS ---
Author Organization [facility] Address [address] [place] [phone] Care Team Providers Care Supervisor Assembly Room Name Role Phone Sree BLAKE, Krystin Primary Care Provider Adan Garcia [facility] [phone] REASON FOR VISIT COLON RECALL Encounters Encounter Location Date Provider Diagnosis [facility] [address] [place] [phone] 04/08/2024 Adan Martínez Plan Of Treatment No Information Progress Notes * HELENA ZAFARDOB:[birth year] (84 yo M)Acc No.[id number]:04/08/2024 Progress Notes Patient:?HELENA ZAFAR Provider:?Adan Martínez MD :1940???Age:83 Y???Sex:Male Pascual e:04/08/2024 Address:[facility] Pcp:Krystin Balbuena MD Subjective: * Chief Complaints: * ???1. COLON RECALL. * Medical History:? Objective: * Vitals:? Assessment: Plan: * Treatment: * * The named appointment provid er may or may not be the originator of this progress note, and it is not deemed complete until electronically signed by the appointment provider. Sign off status: Pending * Provider:?dAan Martínez MD Date:? 024 Generated for Billy yoo/Trish/eTransmitting on:?10/08/2024 06:17 AM EDT
[2024-10-08 10:05] LABS: MANUAL DIFF FLAG NO
[2024-10-08 10:08] LABS: Basophils Percent Auto 0.5 % (0-2); Eosinophils Absolute Auto 0.2 X10*3/uL (0.0-0.4); Eosinophils Percent Auto 2.3 % (0-4); Hematocrit 37.9 % (42.0-52.0); Hemoglobin 12.7 g/dl (14.0-18.0); Imm Gran Abs Auto 0.02 X10*3/uL (0.00-0.03); Imm Gran Pct Auto 0.3 % (0.0-0.4); Lymphocytes Absolute Auto 1.2 X10*3/uL (1.2-4.9); Lymphocytes Percent Auto 15.4 % (20-40); Mean Corpuscular HGB Conc 33.5 g/dl (31.0-36.0); Mean Corpuscular Volume 98.4 fL (80.0-98.0); Mean Platelet Volume 8.5 fL (9.4-12.4); Monocytes Absolute Auto 0.8 X10*3/uL (0.1-1.2); Monocytes Percent Auto 9.8 % (2-11); Neutrophils Absolute Auto 5.6 x10*3/uL (2.0-8.3); Neutrophils Percent Auto 71.7 % (45-73); Platelet Count 167 X10*3/uL (160-400); Red Blood Count 3.85 X10*6/uL (4.60-5.80); Red Cell Distribution Width 11.9 % (11.0-16.0); White Blood Count 7.8 X10*3/uL (4.8-10.8)
[2024-10-08 10:30] LABS: Alanine Aminotransferase < 6 U/L (0-40); Albumin Level 2.9 g/dL (3.5-5.0); Alkaline Phosphatase 111 U/L (39-117); Anion Gap 9 (12-20); Aspartate Amino Transferase 22 U/L (5-37); Bilirubin Total 0.4 mg/dL (0.0-1.0); Blood Urea Nitrogen 18 mg/dL (9-16); Calcium 8.7 mg/dL (8.4-10.2); Carbon Dioxide 30 mmol/L (22-29); Chloride 104 mmol/L (96-108); Estimated Glomerular Filt Rate > 60; Glucose Random 153 mg/dL (60-115); Potassium 4.4 mmol/L (3.3-5.1); Sodium 139 mmol/L (135-145); Total Protein 6.3 g/dL (6.5-8.0)
== END 2024-10-08 06:16 | disposition home or self-care (01) ==
LOC: HO.LHD 06:15
PROVIDERS: Visit Provider Internal Medicine Medical Oncology
DX: D64.9 Anemia, unspecified (principal)
CPT/HCPCS: 36415; 80053; 85025

== ENCOUNTER 2024-11-05 | Outpatient (REF) | payer MEDICARE, SELFPAY ==
[2024-11-05 09:55] LABS: MANUAL DIFF FLAG NO
[2024-11-05 09:59] LABS: Basophils Absolute Auto 0.1 X10*3/uL (0.0-0.2); Basophils Percent Auto 0.6 % (0-2); Eosinophils Absolute Auto 0.2 X10*3/uL (0.0-0.4); Eosinophils Percent Auto 2.3 % (0-4); Hematocrit 38.6 % (42.0-52.0); Hemoglobin 13.1 g/dl (14.0-18.0); Imm Gran Abs Auto 0.04 X10*3/uL (0.00-0.03); Imm Gran Pct Auto 0.4 % (0.0-0.4); Lymphocytes Absolute Auto 1.5 X10*3/uL (1.2-4.9); Lymphocytes Percent Auto 15.4 % (20-40); Mean Corpuscular HGB Conc 33.9 g/dl (31.0-36.0); Mean Corpuscular Hemoglobin 33.5 pg (27.0-33.0); Mean Corpuscular Volume 98.7 fL (80.0-98.0); Mean Platelet Volume 8.3 fL (9.4-12.4); Monocytes Absolute Auto 0.9 X10*3/uL (0.1-1.2); Monocytes Percent Auto 9.1 % (2-11); Neutrophils Absolute Auto 7.2 x10*3/uL (2.0-8.3); Neutrophils Percent Auto 72.2 % (45-73); Platelet Count 235 X10*3/uL (160-400); Red Blood Count 3.91 X10*6/uL (4.60-5.80); Red Cell Distribution Width 11.9 % (11.0-16.0)
[2024-11-05 10:14] LABS: Alanine Aminotransferase 6 U/L (0-40); Alkaline Phosphatase 126 U/L (39-117); Anion Gap 13 (12-20); Aspartate Amino Transferase 29 U/L (5-37); Bilirubin Total 0.6 mg/dL (0.0-1.0); Blood Urea Nitrogen 19 mg/dL (9-16); Calcium 8.9 mg/dL (8.4-10.2); Carbon Dioxide 28 mmol/L (22-29); Chloride 102 mmol/L (96-108); Estimated Glomerular Filt Rate > 60; Glucose Random 137 mg/dL (60-115); Potassium 3.9 mmol/L (3.3-5.1); Sodium 139 mmol/L (135-145); Total Protein 6.8 g/dL (6.5-8.0)
== END 2024-11-05 00:01 | disposition home or self-care (01) ==
LOC: HO.LHD
PROVIDERS: Visit Provider Internal Medicine Medical Oncology
DX: D64.9 Anemia, unspecified (principal)
CPT/HCPCS: 36415; 80053; 85025

== ENCOUNTER 2025-01-07 07:50 | Outpatient (REF) | payer MEDICARE, SELFPAY ==
[2025-01-07 11:02] LABS: MANUAL DIFF FLAG NO
[2025-01-07 11:13] LABS: Hematocrit 35.9 % (42.0-52.0); Hemoglobin 12.2 g/dl (14.0-18.0); Imm Gran Abs Auto 0.03 X10*3/uL (0.00-0.03); Imm Gran Pct Auto 0.3 % (0.0-0.4); Lymphocytes Absolute Auto 1.4 X10*3/uL (1.2-4.9); Mean Corpuscular HGB Conc 34.0 g/dl (31.0-36.0); Mean Corpuscular Hemoglobin 33.3 pg (27.0-33.0); Mean Corpuscular Volume 98.1 fL (80.0-98.0); NRBC Abs Auto 0.000 X10*3/uL (0.0-0.012); NRBC Pct Auto 0.0 /100WBC (0.0-0.2); Platelet Count 187 X10*3/uL (160-400); Red Blood Count 3.66 X10*6/uL (4.60-5.80); White Blood Count 10.1 X10*3/uL (4.8-10.8)
[2025-01-07 11:21] LABS: Alanine Aminotransferase 7 U/L (0-40); Albumin Level 2.9 g/dL (3.5-5.0); Alkaline Phosphatase 107 U/L (39-117); Anion Gap 8 (12-20); Aspartate Amino Transferase 32 U/L (5-37); Blood Urea Nitrogen 15 mg/dL (9-16); Calcium 8.5 mg/dL (8.4-10.2); Carbon Dioxide 31 mmol/L (22-29); Chloride 101 mmol/L (96-108); Estimated Glomerular Filt Rate > 60; Potassium 4.0 mmol/L (3.3-5.1); Sodium 136 mmol/L (135-145); Total Protein 6.1 g/dL (6.5-8.0)
== END 2025-01-07 07:51 | disposition home or self-care (01) ==
LOC: HO.LHD 07:50
PROVIDERS: Visit Provider Internal Medicine Medical Oncology
DX: D64.9 Anemia, unspecified (principal)
CPT/HCPCS: 36415; 80053; 85025

== ENCOUNTER 2025-01-28 08:09 | Outpatient (AMB) | payer MEDICARE, SELFPAY ==
--- NOTE | 2025-01-28 08:55 | A.OFFPC_ITS ---
Intake Visit Reasons: 4 M F/U Allergies No Known Allergies (No Known Allergies*) Allergy (Verified 10/01/24 08:32) Medication List - Last Reconciled 01/28/25 by Krystin Balbuena MD ascorbic acid (vitamin C) ER (Vitamin C) 500 mg PO DAILY blood pressure monitor Check blood pressure daily and as needed NS cholecalciferol (vitamin D3) 25 mcg PO QAM cyanocobalamin (vitamin B-12) 1,000 mcg sublingual DAILY docusate sodium 100 mg PO BID escitalopram oxalate 20 mg PO QAM ferrous sulfate 325 mg PO DAILY folic acid 1 mg PO QAM gabapentin 300 mg PO BID 90 days Tobacco use date assessed: 10/01/24 Dental Screening Dental Screen Date: 04/23/24 HPI 4 M F/U HPI Details - The patient is an 84-year-old male pre senting for medication management related to peripheral neuropathy. - The patient experiences difficulty wit h gait, citing lack of proprioception due to sensory deficits in his feet. - Reports stable condition, with no spec [facility] complaints or recent changes in symptoms. - No report of pain or discomfort at the time of the visit. - Notes of slight anemia have been consi stent in recent lab findings; levels fluctuate between 12 and 13. - History of minor reduction in serum pr otein level, slightly low at 6.1 compared to a normal range of 6.5. - No new symptoms or concerns noted in t he recent lab evaluations. - Past observations indicate that the pa tient shows no signs of deterioration and has been stable for the past couple of years. - Currently maintains a stable lifestyle with no reported acute medical events or exacerbations. Medications: - Vitamin D, for supplementation. - Vitamin B12, for supplementation. - Lexapro 20 mg, for management of depre ssion/anxiety. - Iron supplements: Folic acid and Polina us sulfate, for management of anemia. - Gabapentin 300 two times a day (adjust ed to once daily in the morning), for n europathic pain. - Tylenol, for general pain management a s needed. Social History: - Reports limited mobility, contributing to slight protein deficiencies; possibly due to reduced muscle activity. - Engages in passive activities with cog nitive engagement, watching television programs and sports games in the evening. Diagnostic Results: - Labs: Electrolytes normal, kidney func tions normal, liver enzymes normal. - Labs: Slight anemia with hemoglobin fl uctuating between 12 and 13, consistent with patient's history. - Labs: Serum protein level slightly low at 6.1. Patient Instructions - Continue taking your vitamins and iron supplements as directed. - Make sure you eat well and stay as act divya as possible. - Keep watching your favorite shows and games; mental activity is good for you. - If you experience any pain or discomfo rt, take Tylenol as you have been. 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 Brother No problems noted. Brother No problems noted. Sister No problems noted. Son No problems noted. Son No problems noted. Son No problems noted. Son No problems noted. Daughter No problems noted. Daughter No problems noted. Daughter No problems noted. Social History Household Members: Spouse and Other Household Members Other:: and grandson Housing: House Are you a primary customer care team coach to a significant other at home: No Do you presently have visiting nurse or other home services: No Patient Tobacco Use Status: Former Tobacco user Tobacco use type: Cigarette Years Smoked: 15 e-Cigarette/Vaping Use: Never Used Second Hand Smoke Exposure: No Advance Directives Date on File: 03/05/22 service: Yes Current occupational status: retired Current occupational exposures/hazards: No Cognitive needs: No Hearing needs: No Vision needs: No Questionnaire Thrive Questionnaire Date Thrive assessed: 03/08/24 ELI-7 AMB Questionnaire ELI-7 Date ELI - 7 assessed: 11/19/23 Source: Developed by Drs. Adan Black, Hannah Powell, Marcell Levine and colleagues, with an educational marta from [employer]. Physical exam (Primary Care) Tobacco/Smoking Status: Tobacco use Status Tobacco use date assessed 10/01/24 01/28/25 08:55 Patient Tobacco Use Status Former Tobacco user 01/28/25 08:55 Tobacco use type Cigarette 01/28/25 08:55 e-Cigarette/Vaping Use Never Used 01/28/25 08:55 Thrive Assessment: Date of Thrive Assessment Date Thrive assessed 03/08/24 01/28/25 08:55 Telehealth Telehealth Telehealth Platform: [employer] Location of provider rendering services: practice address Location of patient: address on file Patient Identification confirmed using: Name, : Yes Telehealth method: voice only Patient verbally consented to treatment: Yes Patient verbally consented to billing insurance company: Yes Patient informed of any privacy concerns related to visit: Yes Minutes spent on Phone/Video with Pt.: 13 Coding Level of Care Code Tele Est Pt Level 3 (64021) Diagnoses Microcytic anemia D50.9 Gait instability R26.81 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 type: 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, 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 Anxiety, generalized F41.1 Primary osteoarthritis of both knees M17.0 Osteoarthritis type: primary Assessment & Plan Assessment & Plan (1) Microcytic anemia: Code(s): D50.9 - Iron deficiency anemia, unspecified Category: Medical (2) Gait instability: Code(s): R26.81 - Unsteadiness on feet Category: Medical (3) Peripheral neuropathy: Comment: resultant gait instability-in wheelchair-can stand and pivot-uses walker at home-chair to bathroom Code(s): G62.9 - Polyneuropathy, unspecified Category: Medical Qualifiers: Peripheral neuropathy type: idiopathic progressive neuropathy Qualified Code(s): G60.3 - Idiopathic progressive neuropathy (4) Diabetes 1.5, managed as type 2: Comment: no Rx at present-PCP monitors-does not check glucose at home Code(s): E13.9 - Other specified diabetes mellitus without complications Category: Medical (5) Multifactorial gait disorder: Comment: can stand and pivot, uses walker occasionally Code(s): R26.89 - Other abnormalities of gait and mobility Category: Medical (6) Anxiety, generalized: Code(s): F41.1 - Generalized anxiety disorder Category: Medical (7) Degenerative arthritis of knee, bilateral: Code(s): M17.0 - Bilateral primary osteoarthritis of knee Category: Medical Qualifiers: Osteoarthritis type: primary Qualified Code(s): M17.0 - Bilateral primary osteoarthritis of knee Plan - The patient is an 84-year-old male presenting for medication management related to peripheral neuropathy. - The patient experiences difficulty with gait, citing lack of proprioception due to sensory deficits in his feet. - Reports stable condition, with no specific complaints or recent changes in symptoms. - No report of pain or discomfort at the time of the visit. - Notes of slight anemia have been consistent in recent lab findings; levels fluctuate between 12 and 13. - History of minor reduction in serum protein level, slightly low at 6.1 compared to a normal range of 6.5. - No new symptoms or concerns noted in the recent lab evaluations. - Past observations indicate that the patient shows no signs of deterioration and has been stable for the past couple of years. - Currently maintains a stable lifestyle with no reported acute medical events or exacerbations. Medications: - Vitamin D, for supplementation. - Vitamin B12, for supplementation. - Lexapro 20 mg, for management of depression/anxiety. - Iron supplements: Folic acid and Ferrous sulfate, for management of anemia. - Gabapentin 300 two times a day (adjusted to once daily in the morning), for neuropathic pain. - Tylenol, for general pain management as needed. Social History: - Reports limited mobility, contributing to slight protein deficiencies; possibly due to reduced muscle activity. - Engages in passive activities with cognitive engagement, watching television programs and sports games in the evening. Diagnostic Results: - Labs: Electrolytes normal, kidney functions normal, liver enzymes normal. - Labs: Slight anemia with hemoglobin fluctuating between 12 and 13, consistent with patient's history. - Labs: Serum protein level slightly low at 6.1. Patient Instructions - Continue taking your vitamins and iron supplements as directed. - Make sure you eat well and stay as active as possible. - Keep watching your favorite shows and games; mental activity is good for you. - If you experience any pain or discomfort, take Tylenol as you have been.
== END 2025-01-28 11:52 | disposition home or self-care (01) ==
LOC: HO.HMCC 08:09
PROVIDERS: PCP Internal Medicine; Visit Provider Internal Medicine
DX: E13.9 Other specified diabetes mellitus without complications (principal); D50.9 Iron deficiency anemia, unspecified; R26.81 Unsteadiness on feet; G60.3 Idiopathic progressive neuropathy; R26.89 Other abnormalities of gait and mobility; F41.1 Generalized anxiety disorder; M17.0 Bilateral primary osteoarthritis of knee

== ENCOUNTER 2025-02-11 07:05 | Outpatient (REF) | payer MEDICARE, SELFPAY ==
[2025-02-11 09:27] LABS: MANUAL DIFF FLAG NO
[2025-02-11 09:52] LABS: Hematocrit 40.4 % (42.0-52.0); Hemoglobin 13.5 g/dl (14.0-18.0); Imm Gran Abs Auto 0.04 X10*3/uL (0.00-0.03); Imm Gran Pct Auto 0.3 % (0.0-0.4); Lymphocytes Absolute Auto 1.6 X10*3/uL (1.2-4.9); Mean Corpuscular HGB Conc 33.4 g/dl (31.0-36.0); Mean Corpuscular Hemoglobin 32.8 pg (27.0-33.0); Mean Corpuscular Volume 98.3 fL (80.0-98.0); NRBC Abs Auto 0.000 X10*3/uL (0.0-0.012); NRBC Pct Auto 0.0 /100WBC (0.0-0.2); Platelet Count 224 X10*3/uL (160-400); Red Blood Count 4.11 X10*6/uL (4.60-5.80); White Blood Count 11.6 X10*3/uL (4.8-10.8)
[2025-02-11 10:42] LABS: Alanine Aminotransferase < 6 U/L (0-40); Albumin Level 3.2 g/dL (3.5-5.0); Alkaline Phosphatase 104 U/L (39-117); Anion Gap 11 (12-20); Aspartate Amino Transferase 22 U/L (5-37); Blood Urea Nitrogen 14 mg/dL (9-16); Calcium 8.7 mg/dL (8.4-10.2); Carbon Dioxide 29 mmol/L (22-29); Chloride 102 mmol/L (96-108); Estimated Glomerular Filt Rate > 60; Potassium 4.4 mmol/L (3.3-5.1); Sodium 138 mmol/L (135-145); Total Protein 6.9 g/dL (6.5-8.0)
== END 2025-02-11 07:06 | disposition home or self-care (01) ==
LOC: HO.LHD 07:05
PROVIDERS: Visit Provider Internal Medicine Medical Oncology
DX: D64.9 Anemia, unspecified (principal)
CPT/HCPCS: 36415; 80053; 85025

== ENCOUNTER 2025-03-11 08:07 | Outpatient (REF) | payer MEDICARE, SELFPAY ==
[2025-03-11 10:06] LABS: MANUAL DIFF FLAG NO
[2025-03-11 10:10] LABS: Hematocrit 36.9 % (42.0-52.0); Hemoglobin 12.4 g/dl (14.0-18.0); Imm Gran Abs Auto 0.03 X10*3/uL (0.00-0.03); Imm Gran Pct Auto 0.3 % (0.0-0.4); Lymphocytes Absolute Auto 1.2 X10*3/uL (1.2-4.9); Mean Corpuscular HGB Conc 33.6 g/dl (31.0-36.0); Mean Corpuscular Hemoglobin 32.6 pg (27.0-33.0); Mean Corpuscular Volume 97.1 fL (80.0-98.0); NRBC Abs Auto 0.000 X10*3/uL (0.0-0.012); NRBC Pct Auto 0.0 /100WBC (0.0-0.2); Platelet Count 221 X10*3/uL (160-400); Red Blood Count 3.80 X10*6/uL (4.60-5.80); White Blood Count 9.5 X10*3/uL (4.8-10.8)
[2025-03-11 10:37] LABS: Alanine Aminotransferase < 6 U/L (0-40); Albumin Level 2.8 g/dL (3.5-5.0); Alkaline Phosphatase 106 U/L (39-117); Anion Gap 12 (12-20); Aspartate Amino Transferase 20 U/L (5-37); Blood Urea Nitrogen 15 mg/dL (9-16); Calcium 8.5 mg/dL (8.4-10.2); Carbon Dioxide 29 mmol/L (22-29); Chloride 101 mmol/L (96-108); Estimated Glomerular Filt Rate > 60; Potassium 4.1 mmol/L (3.3-5.1); Sodium 138 mmol/L (135-145); Total Protein 6.3 g/dL (6.5-8.0)
== END 2025-03-11 08:08 | disposition home or self-care (01) ==
LOC: HO.LHD 08:07
PROVIDERS: Visit Provider Internal Medicine Medical Oncology
DX: D64.9 Anemia, unspecified (principal)
CPT/HCPCS: 36415; 80053; 85025

== ENCOUNTER 2025-04-08 06:05 | Outpatient (REF) | payer MEDICARE, SELFPAY ==
[2025-04-08 10:56] LABS: MANUAL DIFF FLAG NO
[2025-04-08 11:00] LABS: Hematocrit 38.8 % (42.0-52.0); Hemoglobin 13.0 g/dl (14.0-18.0); Imm Gran Abs Auto 0.03 X10*3/uL (0.00-0.03); Imm Gran Pct Auto 0.3 % (0.0-0.4); Lymphocytes Absolute Auto 1.3 X10*3/uL (1.2-4.9); Mean Corpuscular HGB Conc 33.5 g/dl (31.0-36.0); Mean Corpuscular Hemoglobin 32.7 pg (27.0-33.0); Mean Corpuscular Volume 97.7 fL (80.0-98.0); NRBC Abs Auto 0.000 X10*3/uL (0.0-0.012); NRBC Pct Auto 0.0 /100WBC (0.0-0.2); Platelet Count 222 X10*3/uL (160-400); Red Blood Count 3.97 X10*6/uL (4.60-5.80); White Blood Count 9.3 X10*3/uL (4.8-10.8)
[2025-04-08 11:17] LABS: Alanine Aminotransferase < 6 U/L (0-40); Albumin Level 3.0 g/dL (3.5-5.0); Alkaline Phosphatase 111 U/L (39-117); Anion Gap 10 (12-20); Aspartate Amino Transferase 22 U/L (5-37); Blood Urea Nitrogen 14 mg/dL (9-16); Calcium 8.6 mg/dL (8.4-10.2); Carbon Dioxide 30 mmol/L (22-29); Chloride 103 mmol/L (96-108); Estimated Glomerular Filt Rate > 60; Potassium 4.1 mmol/L (3.3-5.1); Sodium 139 mmol/L (135-145); Total Protein 6.5 g/dL (6.5-8.0)
== END 2025-04-08 06:06 | disposition home or self-care (01) ==
LOC: HO.LHD 06:05
PROVIDERS: Visit Provider Internal Medicine Medical Oncology
DX: D64.9 Anemia, unspecified (principal)
CPT/HCPCS: 36415; 80053; 85025

== ENCOUNTER 2025-05-14 07:27 | Outpatient (REF) | payer MEDICARE, SELFPAY ==
[2025-05-14 10:06] LABS: MANUAL DIFF FLAG NO
[2025-05-14 10:34] LABS: Alanine Aminotransferase < 6 U/L (0-40); Albumin Level 3.0 g/dL (3.5-5.0); Alkaline Phosphatase 99 U/L (39-117); Anion Gap 9 (12-20); Aspartate Amino Transferase 20 U/L (5-37); Blood Urea Nitrogen 13 mg/dL (9-16); Calcium 8.6 mg/dL (8.4-10.2); Carbon Dioxide 32 mmol/L (22-29); Chloride 101 mmol/L (96-108); Estimated Glomerular Filt Rate > 60; Potassium 4.3 mmol/L (3.3-5.1); Sodium 138 mmol/L (135-145); Total Protein 6.4 g/dL (6.5-8.0)
[2025-05-14 10:42] LABS: Hematocrit 38.7 % (42.0-52.0); Hemoglobin 12.8 g/dl (14.0-18.0); Imm Gran Abs Auto 0.03 X10*3/uL (0.00-0.03); Imm Gran Pct Auto 0.3 % (0.0-0.4); Lymphocytes Absolute Auto 1.5 X10*3/uL (1.2-4.9); Mean Corpuscular HGB Conc 33.1 g/dl (31.0-36.0); Mean Corpuscular Hemoglobin 32.6 pg (27.0-33.0); Mean Corpuscular Volume 98.5 fL (80.0-98.0); NRBC Abs Auto 0.000 X10*3/uL (0.0-0.012); NRBC Pct Auto 0.0 /100WBC (0.0-0.2); Platelet Count 213 X10*3/uL (160-400); Red Blood Count 3.93 X10*6/uL (4.60-5.80); White Blood Count 9.0 X10*3/uL (4.8-10.8)
== END 2025-05-14 07:28 | disposition home or self-care (01) ==
LOC: HO.LHD 07:27
PROVIDERS: Visit Provider Internal Medicine Medical Oncology
DX: D64.9 Anemia, unspecified (principal)
CPT/HCPCS: 36415; 80053; 85025

== ENCOUNTER 2025-06-11 08:51 | Outpatient (REF) | payer MEDICARE, SELFPAY ==
[2025-06-11 11:47] LABS: MANUAL DIFF FLAG NO
[2025-06-11 12:28] LABS: Hematocrit 37.0 % (42.0-52.0); Hemoglobin 12.4 g/dl (14.0-18.0); Imm Gran Abs Auto 0.02 X10*3/uL (0.00-0.03); Imm Gran Pct Auto 0.2 % (0.0-0.4); Lymphocytes Absolute Auto 1.4 X10*3/uL (1.2-4.9); Mean Corpuscular HGB Conc 33.5 g/dl (31.0-36.0); Mean Corpuscular Hemoglobin 33.0 pg (27.0-33.0); Mean Corpuscular Volume 98.4 fL (80.0-98.0); NRBC Abs Auto 0.000 X10*3/uL (0.0-0.012); NRBC Pct Auto 0.0 /100WBC (0.0-0.2); Platelet Count 221 X10*3/uL (160-400); Red Blood Count 3.76 X10*6/uL (4.60-5.80); White Blood Count 8.1 X10*3/uL (4.8-10.8)
== END 2025-06-11 08:52 | disposition home or self-care (01) ==
LOC: HO.LHD 08:51
PROVIDERS: Visit Provider Internal Medicine Medical Oncology
DX: D64.9 Anemia, unspecified (principal)
CPT/HCPCS: 36415; 85025

== ENCOUNTER 2025-06-17 08:26 | Outpatient (AMB) | payer MEDICARE, SELFPAY ==
--- NOTE | 2025-06-17 09:10 | MHC.PC.OV ---
Intake Visit Reasons: 4m follow TH Allergies No Known Allergies (No Known Allergies*) Allergy (Verified 10/01/24 08:32) Medication List - Last Reconciled 06/17/25 by Krystin Balbuena MD ascorbic acid (vitamin C) ER (Vitamin C) 500 mg PO DAILY blood pressure monitor Check blood pressure daily and as needed NS cholecalciferol (vitamin D3) 25 mcg PO QAM cyanocobalamin (vitamin B-12) 1,000 mcg sublingual DAILY docusate sodium 100 mg PO BID escitalopram oxalate 20 mg PO QAM ferrous sulfate 325 mg PO DAILY folic acid 1 mg PO QAM gabapentin 300 mg PO BID 90 days Tobacco use date assessed: 10/01/24 Dental Screening Dental Screen Date: 04/23/24 HPI HPI Comments History of Present Illness Details History of Present Illness The patient is an 84 year old male presenting for a telehealth visit for medication management and follow-up on chronic conditions. Anemia: - The patient's hemoglobin is currently stable at 12.4, though it fluctuates slightly. - He is taking ferrous sulfate once daily. Peripheral Neuropathy: - He takes gabapentin 300 mg twice daily for peripheral neuropathy. 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 - Getting to the clinic for visits and lab draws is difficult. Depression: - He is taking Lexapro 20 mg for depression, which is reported to be helping him tremendously. - The patient is reported to be in good spirits. Diabetes Mellitus: - The patient has diet-controlled diabetes. Medical History: - Anemia - Depression - Peripheral neuropathy - Multifactorial gait disorder - Diet-controlled diabetes mellitus - Fall risk Medications: - Ferrous sulfate once daily for anemia. - Iron supplement with vitamin C. - Vitamin D. - Vitamin B12. - Lexapro 20 mg for depression. - Gabapentin 300 mg BID for peripheral neuropathy. Social History: - Functional Status: The patient has a multifactorial gait disorder and is at risk for falls. - Level of Activity: He is able to stand and primarily uses a recliner. - Caregiver: His is his primary deputy sheriff lieutenant. - Nutritional Intake: He needs encouragement to drink more water. Diagnostic Results: - Hemoglobin: 12.4, noted as stable. - Electrolytes: Normal. - Kidney function: Normal. - Liver enzymes: Stable. 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 Brother No problems noted. Brother No problems noted. Sister No problems noted. Son No problems noted. Son No problems noted. Son No problems noted. Son No problems noted. Daughter No problems noted. Daughter No problems noted. Daughter No problems noted. Social History Household Members: Spouse and Other Household Members Other:: and grandson Housing: House Are you a primary point of care technician to a significant other at home: No Do you presently have visiting nurse or other home services: No Patient Tobacco Use Status: Former Tobacco user Tobacco use type: Cigarette Years Smoked: 15 e-Cigarette/Vaping Use: Never Used Second Hand Smoke Exposure: No Advance Directives Date on File: 03/05/22 service: Yes Current occupational status: retired Current occupational exposures/hazards: No Cognitive needs: No Hearing needs: No Vision needs: No Questionnaire Thrive Questionnaire Date Thrive assessed: 03/08/24 ELI-7 AMB Questionnaire ELI-7 Date ELI - 7 assessed: 11/19/23 Source: Developed by Drs. Adan Black, Hannah Powell, Marcell Levine and colleagues, with an educational marta from [employer]. Review of Systems Narrative Review of Systems - General: No fever no chills - Neurological: No headaches no dizziness - Ear nose throat: No sore throat no hearing difficulty no ear pain - Cardiovascular: No syncope, no chest pain, no palpitations - Gastrointestinal: No nausea vomiting or diarrhea Physical exam (Primary Care) Tobacco/Smoking Status: Tobacco use Status Tobacco use date assessed 10/01/24 01/28/25 08:55 Patient Tobacco Use Status Former Tobacco user 01/28/25 08:55 Tobacco use type Cigarette 01/28/25 08:55 e-Cigarette/Vaping Use Never Used 01/28/25 08:55 Thrive Assessment: Date of Thrive Assessment Date Thrive assessed 03/08/24 01/28/25 08:55 Narrative Telehealth Telehealth Telehealth Platform: [facility] Location of provider rendering services: practice address Location of patient: address on file Patient Identification confirmed using: Name, : Yes Telehealth method: video Patient verbally consented to treatment: Yes Patient verbally consented to billing insurance company: Yes Patient informed of any privacy concerns related to visit: Yes Minutes spent on Phone/Video with Pt.: 13 Coding Level of Care Code Tele Est Pt Level 3 (54533) Add On Problem Visit Only Diagnoses Microcytic anemia D50.9 Gait instability R26.81 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 type: 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, 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 R26.89 Anxiety, generalized F41.1 Primary osteoarthritis of both knees M17.0 Osteoarthritis type: primary Assessment & Plan Assessment & Plan (1) Microcytic anemia: Code(s): D50.9 - Iron deficiency anemia, unspecified Category: Medical (2) Gait instability: Code(s): R26.81 - Unsteadiness on feet Category: Medical (3) Peripheral neuropathy: Comment: resultant gait instability-in wheelchair-can stand and pivot-uses walker at home-chair to bathroom Code(s): G62.9 - Polyneuropathy, unspecified Category: Medical Qualifiers: Peripheral neuropathy type: idiopathic progressive neuropathy Qualified Code(s): G60.3 - Idiopathic progressive neuropathy (4) Diabetes 1.5, managed as type 2: Comment: no Rx at present-PCP monitors-does not check glucose at home Code(s): E13.9 - Other specified diabetes mellitus without complications Category: Medical (5) Multifactorial gait disorder: Comment: can stand and pivot, uses walker occasionally Code(s): R26.89 - Other abnormalities of gait and mobility Category: Medical (6) Anxiety, generalized: Code(s): F41.1 - Generalized anxiety disorder Category: Medical (7) Degenerative arthritis of knee, bilateral: Code(s): M17.0 - Bilateral primary osteoarthritis of knee Category: Medical Qualifiers: Osteoarthritis type: primary Qualified Code(s): M17.0 - Bilateral primary osteoarthritis of knee Plan Problem List - Anemia - Depression - Peripheral neuropathy - Multifactorial gait disorder - Diabetes mellitus, diet-controlled - Fall risk Plan - Continue current medications without changes. - Continue ferrous sulfate once daily. - Will check iron level in the blood with the next lab draw. - Encourage increased water intake for hydration. - No new prescriptions needed at this time. - A mobile home mechanic will be utilized for future lab draws. Orders: Orders Ferritin 3 Months D50.9 - Iron deficiency anemia, unspecified, E13.9 - Other specified diabetes mellitus without complications, F41.1 - Generalized anxiety disorder, G60.3 - Idiopathic progressive neuropathy Complete Blood Count Auto Diff 3 Months D50.9 - Iron deficiency anemia, unspecified, E13.9 - Other specified diabetes mellitus without complications, F41.1 - Generalized anxiety disorder, G60.3 - Idiopathic progressive neuropathy Comprehensive Met. Panel 3 Months D50.9 - Iron deficiency anemia, unspecified, E13.9 - Other specified diabetes mellitus without complications, F41.1 - Generalized anxiety disorder, G60.3 - Idiopathic progressive neuropathy Vitamin D 25-OH (D2 and D3) 3 Months D50.9 - Iron deficiency anemia, unspecified, E13.9 - Other specified diabetes mellitus without complications, F41.1 - Generalized anxiety disorder, G60.3 - Idiopathic progressive neuropathy Vitamin B12 3 Months D50.9 - Iron deficiency anemia, unspecified, E13.9 - Other specified diabetes mellitus without complications, F41.1 - Generalized anxiety disorder, G60.3 - Idiopathic progressive neuropathy TSH reflex Free T4 3 Months D50.9 - Iron deficiency anemia, unspecified, E13.9 - Other specified diabetes mellitus without complications, F41.1 - Generalized anxiety disorder, G60.3 - Idiopathic progressive neuropathy LDL Cholesterol Direct 3 Months D50.9 - Iron deficiency anemia, unspecified, E13.9 - Other specified diabetes mellitus without complications, F41.1 - Generalized anxiety disorder, G60.3 - Idiopathic progressive neuropathy Hemoglobin A1c 3 Months D50.9 - Iron deficiency anemia, unspecified, E13.9 - Other specified diabetes mellitus without complications, F41.1 - Generalized anxiety disorder, G60.3 - Idiopathic progressive neuropathy Folate 3 Months D50.9 - Iron deficiency anemia, unspecified, E13.9 - Other specified diabetes mellitus without complications, F41.1 - Generalized anxiety disorder, G60.3 - Idiopathic progressive neuropathy Magnesium 3 Months D50.9 - Iron deficiency anemia, unspecified, E13.9 - Other specified diabetes mellitus without complications, F41.1 - Generalized anxiety disorder, G60.3 - Idiopathic progressive neuropathy
== END 2025-06-17 11:37 | disposition home or self-care (01) ==
LOC: HO.HMCC 08:26
PROVIDERS: PCP Internal Medicine; Visit Provider Internal Medicine
DX: D50.9 Iron deficiency anemia, unspecified (principal); R26.81 Unsteadiness on feet; G60.3 Idiopathic progressive neuropathy; E13.9 Other specified diabetes mellitus without complications; R26.89 Other abnormalities of gait and mobility; F41.1 Generalized anxiety disorder; M17.0 Bilateral primary osteoarthritis of knee